=== PATIENT | male | born 1950 | race Caucasian/White ===

== ENCOUNTER 2022-08-28 14:10 | Outpatient (CLI) | payer MEDICARE, BC, SELFPAY | END 2022-08-28 14:11 | disposition home or self-care (01) | LOC: AMB 09-06 19:54 | PROVIDERS: PCP Internal Medicine; Visit Provider Family Medicine | DX: R55 Syncope and collapse (principal); R42 Dizziness and giddiness | CPT/HCPCS: A0425; A0427 ==

== ENCOUNTER 2022-08-28 14:38 | Observation (INO) | payer MEDICARE, BC, SELFPAY ==
[2022-08-28] VITALS (15 sets, daily range): BP systolic 113–153; BP diastolic 56–82; PULSE 70–78; RESP 10–22; TEMP 36–36.8; O2SAT 22–100; BMI 29.4; BMI 28.9
--- NOTE | 2022-08-28 14:55 | ED.GENADULT ---
HPI - General Adult General Time Seen by Provider: 14:55 Date Seen: 08/28/22 Chief complaint: Syncope/Fainted Stated complaint: Syncopal Time Seen by Provider: 08/28/22 14:54 Source: patient, RN notes reviewed and old records reviewed Mode of arrival: ambulatory Limitations: no limitations History of Present Illness HPI narrative: Devin is a very pleasant 71-year-old gentleman with prostate cancer status post external beam radiation with a Q 6 month Lupron and 4 times a day Abiraterone , type 2 diabetes, history of GI bleed who comes to the emergency room for evaluation regarding syncopal episode. Devin states that yesterday he had cold-like symptoms but was improved today. However he slept in and when he was in the shower did not feel very good. As he exited the shower he felt very lightheaded and felt like he was going to pass out. He was able to put some clothes on but when he tried to go back into the bathroom area he had to sit down and then found that he had passed out. His is present states that he was unresponsive for approximately 5 minutes. When he came to he was quite surprised that what had happened. He denied any chest pain or shortness of breath prodromal E. he does note that he has been very fatigued and occasionally short of breath since his radiation treatment was completed. He notes an ongoing cough for at least a few days. Occasionally productive. No fevers. He does agree that he has occasionally had some blood in his stool small amounts on and off for quite some time. He denies abdominal pain. In regards to possibility of dehydration he has not had any vomiting or diarrhea but notes decreased p.o. intake as he states otherwise he is up multiple times during the night for urination purposes. He has no pain with urination. Related Data Home Medications Medication Instructions Recorded Confirmed aspirin 81 mg tablet,delayed 81 mg PO QDAY 06/04/22 release (Adult Aspirin Regimen) nitroglycerin 0.4 mg sublingual 0.4 mg sublingual Q5M PRN 06/04/22 tablet (Nitrostat) abiraterone 250 mg tablet 1,000 mg PO QDAY 07/12/22 07/12/22 potassium chloride 20 mEq 20 meq PO BID 07/12/22 07/12/22 tablet,extended release(part/cryst) (Klor-Con M) Previous Rx's Medication Instructions Recorded amlodipine 2.5 mg tablet 2.5 mg PO QDAY Hypertension #90 07/12/22 tabs amlodipine 5 mg tablet 5 mg PO QDAY Hypertension #90 tabs 07/12/22 atorvastatin 40 mg tablet (Lipitor) 40 mg PO QPM Hyperlipidemia #90 07/12/22 tabs clindamycin phosphate 1 % lotion 1 applic topical QDAY Rash #60 mL 07/12/22 losartan 25 mg tablet 25 mg PO QDAY Hypertension #90 tabs 07/12/22 metformin 500 mg tablet,extended 2,000 mg PO BID Diabetes #90 tabs 07/12/22 release 24hr metoprolol succinate 100 mg 100 mg PO QDAY Hypertension #90 07/12/22 tablet,extended release 24 hr tabs (Toprol XL) clotrimazole-betamethasone 1 1 applic topical BID Rash #45 grams 07/30/22 %-0.05 % topical cream Allergies Allergy/AdvReac Type Severity Reaction Status Date / Time ibuprofen Allergy Mild Verified 07/02/22 13:02 NSAIDS (Non-Steroidal Allergy Mild Unknown Verified 07/02/22 13:02 Anti-Inflamma adhesive Allergy Unknown Verified 07/02/22 13:02 Review of Systems Status of ROS: Reports: 10 or more systems reviewed and unremarkable except as noted in History and below Const: Reports: fatigue; Denies: fever or chills Eyes: Denies: change in vision ENMT: Denies: throat pain, neck pain, difficulty swallowing or vertigo Cardio: Reports: lightheadedness and shortness of breath with exertion; Denies: chest pain, palpitations or swelling of feet/ankles Resp: Reports: shortness of breath and cough; Denies: wheezing GI: Denies: abdominal pain, nausea, vomiting, diarrhea or difficulty swallowing : Reports: urinary frequency; Denies: painful urination or blood in urine Musculo: Denies: neck pain Neuro: Reports: dizziness; Denies: headache, numbness in extremities or vertigo Endo: Reports: fatigue Allergy/Immuno: Denies: wheezing PFSH PFSH Medical History Adenomatous polyp of colon History of atrial fibrillation History of renal calculi Rash Surgical History History of appendectomy (04/25/07) History of cholecystectomy (04/25/07) Social History Smoking Status: Never smoker Do you use any of these nicotine containing products: None How often do you have a drink containing alcohol: never AUDIT-C Alcohol total score: 0 Exam Narrative: Exam Narrative: Devin is alert and oriented. He appears very pale to me. Is mentation is normal. Neck is supple without lymphadenopathy. Heart with regular rate and rhythm. Lungs are clear bilaterally. Abdomen is obese soft nontender. Lower extremities show 1+ peripheral edema. Moving all extremities. Const: Vital Signs, click to edit/add: Vital Signs - 24 hr 08/28/22 14:43 08/28/22 15:46 Temperature 96.8 F L Pulse Rate [Pulse Oximeter] 73 Respiratory Rate 18 Blood Pressure [Ri ght Upper Arm] 131/60 Pulse Oximetry 100 100 Oxygen Delivery Me thod Room Air Documenting provider has reviewed patient's vital signs: yes Course Course Hospital Course: At this time given TMs pallor I suspect that he is likely anemic secondary to blood loss. Will also check EKG, cardiac enzymes, CBC, electrolytes and comprehensive panel as well as urinalysis. Will add chest x-ray and triple swab for viruses. Will type and screen for 2 units. Reevaluation(s) Reevaluation #1: Devin has a positive guaiac of his stool. More melanotic then bright red noted. No pain with palpation in rectum. Vital Signs Vital signs: Initial Vital Signs Temperature 96.8 F L 08/28/22 14:43 Temperature Source Temporal Artery Scan 08/28/22 14:43 Pulse Rate 73 08/28/22 14:43 Respiratory Rate 18 08/28/22 14:43 Blood Pressure 131/60 08/28/22 14:43 Blood Pressure Mean 83 08/28/22 14:43 Blood Pressure Position Supine 08/28/22 14:43 Pulse Oximetry 100 08/28/22 14:43 Oxygen Delivery Method 08/28/22 14:43 Vital Signs Temperature 96.8 F L 08/28/22 14:43 Pulse Rate 73 08/28/22 14:43 Respiratory Rate 18 08/28/22 14:43 Blood Pressure 131/60 08/28/22 14:43 Pulse Oximetry 100 08/28/22 14:43 Oxygen Delivery Method 08/28/22 14:43 Temperature 96.8 F L 08/28/22 14:43 Pulse Rate 73 08/28/22 14:43 Respiratory Rate 18 08/28/22 14:43 Blood Pressure 131/60 08/28/22 14:43 Pulse Oximetry 100 08/28/22 15:46 Oxygen Delivery Method 08/28/22 14:43 Medical Decision Making MDM Narrative Medical decision making narrative: 1. Syncope-EKG does show changes versus 2016 with flipped T-waves noted in inferior lateral leads. However patient has no chest pain, has a negative cardiac enzyme with 2nd pending at 1930 hours. I believe that this likely stems from GI bleed with basal rate go reaction from hot water of the shower. No dizziness or near syncope in the ED. pressures and pulse have been normal. 2. GI bleed-patient has remote history of GI bleed 2012. According to documentation this may have been ulcers. He was transferred to [facility] at that time for definitive care. Here he has had no vomiting and has been occasionally passing some blood in his stool. He notes the last time this happened was Saturday which is 4 days ago. His stool is grossly positive for blood. He is not having diarrhea or passing large amounts. He takes 1 baby aspirin a day and no NSAIDs. Has no abdominal pain. No evidence of proctitis as digital exam of rectum was a without discomfort. Patient will stay here at the [facility]. We have consulted with Dr. Crook for possible EGD tomorrow. Patient has received 500 mL normal saline and type and screen was accomplished. At this time Dr. Tyson who is the accepting physician would like to hold off on abdominal CT. Initial hemoglobin 10.1 with repeat pending at 1930 hours. 3. Disposition-admit to the [facility] under the care of Dr. Tyson. Medical Records Medical records reviewed: Yes I reviewed the patient's medical records Lab Data Lab results reviewed: Yes I reviewed the patient's lab results Labs: Lab Results 08/28/22 08/28/22 08/28/22 Range/Units 15:08 15:08 15:11 WBC (4.50-11.00) K/uL RBC (4.30-5.90) m/uL Hgb (13.5-17.5) gm/dL Hct (37.0-53.0) % MCV (80-100) fL MCH (26-34) pg MCHC (32-36) gm/dL RDW Coeff of Arnold (11.5-15.5) % Plt Count (140-440) K/uL Neut % (Auto) (42.0-72.0) % Lymph % (Auto) (20-44) % [place] % (Auto) (0.0-11.0) % Eos % (Auto) (0.0-7.0) % Baso % (Auto) (0.0-3.0) % Neut # (Auto) (1.7-7.0) K/uL Lymph # (Auto) (0.90-2.90) K/uL [place] # (Auto) (0.00-0.90) K/UL Eos # (Auto) (0.00-0.50) K/uL Baso # (Auto) (0.00-0.30) K/uL Abs Immat Gran (auto) (0.00-0.30) K/uL Imm/Tot Granulo (auto) % INR (0.91-1.10) Sodium (135-149) mmol/L Potassium (3.6-5.1) mmol/L Chloride (96-114) mmol/L Carbon Dioxide (20-32) mmol/L BUN (7-30) mg/dL Creatinine (0.5-1.5) mg/dL Estimated Creat Clear Estimated GFR ml/min Glucose (60-115) mg/dL Calcium (8.4-10.6) mg/dL Total Bilirubin (0.1-1.5) mg/dL AST (12-35) U/L ALT (4-50) U/L Alkaline Phosphatase (40-150) U/L C-Reactive Protein (0.5-1.0) mg/dL Total Protein (6.0-8.3) g/dL Albumin (3.3-5.0) g/dL Urine Color Yellow (Yellow) Urine Appearance Clear (Clear) Urine pH 5.0 (5.0-8.5) Ur Specific Maybell 1.020 (1.000-1.030) Urine Protein Trace A (Negative) Urine Glucose (UA) Trace A (Negative) Urine Ketones Negative (Negative) Urine Blood Negative (Negative) Urine Nitrite Negative (Negative) Urine Bilirubin Negative (Negative) Urine Urobilinogen 0.2 (0.2-1.0) Ur Leukocyte Esterase Negative (Negative) Urine RBC 0-2 (0-2) Urine WBC 5-10 A (0-5) Ur Squamous Epith Cells None (None-Few) Urine Bacteria None (None) SARS-CoV-2 (PCR) Negative SARS-CoV-2 (Negative) Influenza Type A (PCR) Negative PCR FLU A (Negative) Influenza Type B (PCR) Negative PCR FLU B (Negative) RSV (PCR) Negative PCR RSV (Negative) POC Troponin I 0.00 L (0.01-0.04) ng/ml Blood Type Antibody Screen 08/28/22 08/28/22 08/28/22 Range/Units 15:33 15:33 15:33 WBC 4.39 L (4.50-11.00) K/uL RBC 3.25 L (4.30-5.90) m/uL Hgb 10.1 L (13.5-17.5) gm/dL Hct 29.7 L (37.0-53.0) % MCV 91 (80-100) fL MCH 31 (26-34) pg MCHC 34 (32-36) gm/dL RDW Coeff of Arnold 13.2 (11.5-15.5) % Plt Count 242 (140-440) K/uL Neut % (Auto) 75.4 H (42.0-72.0) % Lymph % (Auto) 9.8 L (20-44) % [place] % (Auto) 8.2 (0.0-11.0) % Eos % (Auto) 6.2 (0.0-7.0) % Baso % (Auto) 0.2 (0.0-3.0) % Neut # (Auto) 3.30 (1.7-7.0) K/uL Lymph # (Auto) 0.40 L (0.90-2.90) K/uL [place] # (Auto) 0.40 (0.00-0.90) K/UL Eos # (Auto) 0.30 (0.00-0.50) K/uL Baso # (Auto) 0.00 (0.00-0.30) K/uL Abs Immat Gran (auto) 0.00 (0.00-0.30) K/uL Imm/Tot Granulo (auto) 0.2 % INR 0.88 L (0.91-1.10) Sodium 141 (135-149) mmol/L Potassium 3.5 L (3.6-5.1) mmol/L Chloride 107 (96-114) mmol/L Carbon Dioxide 26 (20-32) mmol/L BUN 14 (7-30) mg/dL Creatinine 1.0 (0.5-1.5) mg/dL Estimated Creat Clear 70.97 Estimated GFR 81 ml/min Glucose 166 H (60-115) mg/dL Calcium 9.1 (8.4-10.6) mg/dL Total Bilirubin 0.6 (0.1-1.5) mg/dL AST 17 (12-35) U/L ALT 13 (4-50) U/L Alkaline Phosphatase 127 (40-150) U/L C-Reactive Protein 1.1 H (0.5-1.0) mg/dL Total Protein 7.0 (6.0-8.3) g/dL Albumin 4.3 (3.3-5.0) g/dL Urine Color (Yellow) Urine Appearance (Clear) Urine pH (5.0-8.5) Ur Specific Maybell (1.000-1.030) Urine Protein (Negative) Urine Glucose (UA) (Negative) Urine Ketones (Negative) Urine Blood (Negative) Urine Nitrite (Negative) Urine Bilirubin (Negative) Urine Urobilinogen (0.2-1.0) Ur Leukocyte Esterase (Negative) Urine RBC (0-2) Urine WBC (0-5) Ur Squamous Epith Cells (None-Few) Urine Bacteria (None) SARS-CoV-2 (PCR) (Negative) Influenza Type A (PCR) (Negative) Influenza Type B (PCR) (Negative) RSV (PCR) (Negative) POC Troponin I (0.01-0.04) ng/ml Blood Type Antibody Screen 08/28/22 Range/Units 15:33 WBC (4.50-11.00) K/uL RBC (4.30-5.90) m/uL Hgb (13.5-17.5) gm/dL Hct (37.0-53.0) % MCV (80-100) fL MCH (26-34) pg MCHC (32-36) gm/dL RDW Coeff of Arnold (11.5-15.5) % Plt Count (140-440) K/uL Neut % (Auto) (42.0-72.0) % Lymph % (Auto) (20-44) % [place] % (Auto) (0.0-11.0) % Eos % (Auto) (0.0-7.0) % Baso % (Auto) (0.0-3.0) % Neut # (Auto) (1.7-7.0) K/uL Lymph # (Auto) (0.90-2.90) K/uL [place] # (Auto) (0.00-0.90) K/UL Eos # (Auto) (0.00-0.50) K/uL Baso # (Auto) (0.00-0.30) K/uL Abs Immat Gran (auto) (0.00-0.30) K/uL Imm/Tot Granulo (auto) % INR (0.91-1.10) Sodium (135-149) mmol/L Potassium (3.6-5.1) mmol/L Chloride (96-114) mmol/L Carbon Dioxide (20-32) mmol/L BUN (7-30) mg/dL Creatinine (0.5-1.5) mg/dL Estimated Creat Clear Estimated GFR ml/min Glucose (60-115) mg/dL Calcium (8.4-10.6) mg/dL Total Bilirubin (0.1-1.5) mg/dL AST (12-35) U/L ALT (4-50) U/L Alkaline Phosphatase (40-150) U/L C-Reactive Protein (0.5-1.0) mg/dL Total Protein (6.0-8.3) g/dL Albumin (3.3-5.0) g/dL Urine Color (Yellow) Urine Appearance (Clear) Urine pH (5.0-8.5) Ur Specific [place]bell (1.000-1.030) Urine Protein (Negative) Urine Glucose (UA) (Negative) Urine Ketones (Negative) Urine Blood (Negative) Urine Nitrite (Negative) Urine Bilirubin (Negative) Urine Urobilinogen (0.2-1.0) Ur Leukocyte Esterase (Negative) Urine RBC (0-2) Urine WBC (0-5) Ur Squamous Epith Cells (None-Few) Urine Bacteria (None) SARS-CoV-2 (PCR) (Negative) Influenza Type A (PCR) (Negative) Influenza Type B (PCR) (Negative) RSV (PCR) (Negative) POC Troponin I (0.01-0.04) ng/ml Blood Type B Negative Antibody Screen NEGATIVE Imaging Data Chest x-ray: Attestation: I have reviewed the pertinent imaging results. My impression: No obvious infiltrates. Radiologist's impression: HEART AND MEDIASTINUM: The heart size is normal. The mediastinal contour appears normal for patient age. LUNGS AND PLEURAL SPACES: The lungs appear normal.The pleural spaces are unremarkable. OSSEOUS STRUCTURES: Age-appropriate appearance. No acute focal finding. IMPRESSION: No evidence of active pulmonary disease. ECG Data Attestation: I personally reviewed and interpreted this ECG as follows: Interpretation: EKG by my read shows sinus rhythm at a rate of 81. T-wave inversion noted in the inferior lateral leads. Compared with previous there is a change in T-wave presentations. Discharge Plan Discharge Clinical Impression: GI bleed, Syncope Patient Disposition: Admitted As Inpatient Condition: Improved
--- NOTE | 2022-08-28 15:08 | CRLHL7_ITS ---
For Patients: As a result of the Cures Act, medical imaging exams and procedure reports are released immediately into your electronic medical record. You may view this report before your referring provider. If you have questions, please contact your health care provider. INDICATION: URI. Syncope. COMPARISON: October 24, 2015 TECHNIQUE: Portable AP single view study FINDINGS: TUBES AND LINES: None. HEART AND MEDIASTINUM: The heart size is normal. The mediastinal contour appears normal for patient age. LUNGS AND PLEURAL SPACES: The lungs appear normal.The pleural spaces are unremarkable. OSSEOUS STRUCTURES: Age-appropriate appearance. No acute focal finding. IMPRESSION: No evidence of active pulmonary disease. Dictated by Mitchel Saldana MD @ 08/28/2022 3:38:10 PM (Electronically Signed)
[2022-08-28] MEDS: PANTOPRAZOLE SODIUM 40 MG INJ 80 MG IVP (15:52)
[2022-08-28] MEDS: 0.9 % SODIUM CHLORIDE 500 ML 500 ML IV (15:52)
[2022-08-28 15:54] LABS: Basophils Percent Auto 0.2 % (0.0-3.0); Eosinophils Percent Auto 6.2 % (0.0-7.0); Hematocrit 29.7 % (37.0-53.0); Hemoglobin* 10.1 gm/dL (13.5-17.5); Immature Granulocytes Pct Auto 0.2 %; Lymphocytes Percent Auto 9.8 % (20-44); Mean Corpuscular HGB Conc 34 gm/dL (32-36); Mean Corpuscular Hemoglobin 31 pg (26-34); Mean Corpuscular Volume 91 fL (80-100); Monocytes Percent Auto 8.2 % (0.0-11.0); Neutrophils Percent Auto 75.4 % (42.0-72.0); Platelet Count* 242 K/uL (140-440); RDW Coefficient of Variation % 13.2 % (11.5-15.5); Red Blood Count 3.25 m/uL (4.30-5.90); White Blood Count* 4.39 K/uL (4.50-11.00)
[2022-08-28 16:06] LABS: Slide Review Reflex No
[2022-08-28 16:12] LABS: Albumin* 4.3 g/dL (3.3-5.0); Chloride* 107 mmol/L (96-114); Sodium* 141 mmol/L (135-149)
[2022-08-28 16:13] LABS: Potassium* 3.5 mmol/L (3.6-5.1)
[2022-08-28 16:15] LABS: Est. Creatinine Clearance* 70.97; Estimated Glomerular Filt Rate 81 ml/min; INR 0.88 (0.91-1.10); Prothrombin Time 12.5 Seconds
[2022-08-28 16:16] LABS: Alanine Aminotransferase* 13 U/L (4-50); Alkaline Phosphatase* 127 U/L (40-150); Aspartate Amino Transferase* 17 U/L (12-35); Bilirubin Total* 0.6 mg/dL (0.1-1.5); Blood Urea Nitrogen* 14 mg/dL (7-30); Calcium* 9.1 mg/dL (8.4-10.6); Carbon Dioxide* 26 mmol/L (20-32); Glucose* 166 mg/dL (60-115)
[2022-08-28 16:19] LABS: C Reactive Protein* 1.1 mg/dL (0.5-1.0)
[2022-08-28 16:25] LABS: Appearance Urine Clear (Clear); Bilirubin Urine Negative (Negative); Blood Urine Negative (Negative); Color Urine Yellow (Yellow); Glucose Urine Trace (Negative); Ketones Urine Negative (Negative); Leukocyte Esterase Urine Negative (Negative); Nitrite Urine Negative (Negative); Protein Urine Trace (Negative); Urobilinogen Urine 0.2 (0.2-1.0)
[2022-08-28 16:31] LABS: PCR FLU A Negative PCR FLU A (Negative); PCR FLU B Negative PCR FLU B (Negative); PCR RSV Negative PCR RSV (Negative)
[2022-08-28 16:37] LABS: SARS PCR* Negative SARS-CoV-2 (Negative)
[2022-08-28 17:04] LABS: RBC Urine 0-2 (0-2)
--- NOTE | 2022-08-28 17:52 | ED.NURSE ---
Hemoccult is positive per Dr. Tompkins performing the test.
--- NOTE | 2022-08-28 19:34 | P.IMHP_ITS ---
Hospitalist- H&P: HPI History of Present Illness Date Seen: 08/28/22 Chief complaint: Syncopal Narrative: Bora Rider is a 71 year old male admitted through the emergency department after a syncopal episode at home. Patient reports that he had just gotten out of the shower. He sat down in a chair. He started to get up to go to the bathroom when he felt very lightheaded and presyncopal. The next thing he knew his was standing over him trying to wake him up. His noted that she saw him passed out in the chair and very pale appearing. She thinks he was out for about 5 minutes. Prior to this event and subsequently he has been feeling okay. He has had a recent respiratory illness with some cough and congestion for about 2 days. No fever shortness of breath. He has also noted that for the last couple weeks that he has been seeing dark brown stools with some pink tinge to the toilet water after a bowel movement. Stools are formed and not themselves bloody or black. In about 2015 he had hospitalization for syncope and GI bleed. He was diagnosed with an upper GI ulcer at that time. He has been off of ibuprofen since that time. He does continue taken aspirin 81 mg daily for his coronary disease however. No anticoagulants. He has multiple other concerns about his health which she feels has declined substantially in the last 6 months. He has prostate cancer and finished external beam radiation therapy in January 2022. Since that time he reports he has had profound fatigue and malaise. He has had a poor appetite he has had possibly 40 lb of weight loss. He reports exertional dyspnea deconditioning and weakness. He has urinary frequency. He has informed his [facility] oncology team of these symptoms they are attributing it to his radiation but possibly also his androgen deprivation therapy with Lupron/abiraterone. Review of Systems Narrative: Review of systems is negative except as noted above with multiple constitutional symptoms. [facility] Medical History (Updated 08/28/22 @ 19:56 by Kwadwo Tyson MD) Adenomatous polyp of colon Aortic regurgitation CAD (coronary artery disease) Essential hypertension Fatigue Hearing loss d/t noise History of atrial fibrillation History of renal calculi Hyperlipemia IBS (irritable bowel syndrome) Obesity JOE (obstructive sleep apnea) Physical deconditioning Prostate cancer Rash Unintentional weight loss Urinary frequency Surgical History History of appendectomy (04/25/07) History of cholecystectomy (04/25/07) Family History (Updated 08/28/22 @ 19:51 by Kwadwo Tyson MD) Brother Prostate cancer Alcohol dependence Father Prostate cancer Social History (Updated 08/28/22 @ 19:52 by Kwadwo Tyson MD) Narrative: He is here with his . is healthcare power of criminal attorney. Code status is full. 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 He does not smoke. Does not drink alcohol. Smoking Status: Never smoker Do you use any of these nicotine containing products: None How often do you have a drink containing alcohol: never AUDIT-C Alcohol total score: 0 Meds Home Medications and Allergies Home Medications Medication Instructions Recorded Confirmed Type aspirin 81 mg tablet,delayed 81 mg PO QDAY 06/04/22 08/28/22 History release (Adult Aspirin Regimen) nitroglycerin 0.4 mg sublingual 0.4 mg sublingual Q5M PRN 06/04/22 08/28/22 History tablet (Nitrostat) abiraterone 250 mg tablet 1,000 mg PO QDAY 07/12/22 08/28/22 History potassium chloride 20 mEq 20 meq PO BID 07/12/22 08/28/22 History tablet,extended release(part/cryst) (Klor-Con M) Allergies Allergy/AdvReac Type Severity Reaction Status Date / Time ibuprofen Allergy Mild Verified 07/02/22 13:02 NSAIDS (Non-Steroidal Allergy Mild Unknown Verified 07/02/22 13:02 Anti-Inflamma adhesive Allergy Unknown Verified 07/02/22 13:02 Exam Narrative: Exam Narrative: He is alert and appears in no distress. He gives his own history. Head is normal. Eyes normal. Extraocular movements are full. Visual hu intact. Oropharynx with small airway. Otherwise normal. Neck is supple without mass or adenopathy. Respirations are clear to auscultation. No wheezing rales or rhonchi. Cardiovascular: S1, S2, regular rate and rhythm. No murmur gallop or rub. Abdomen: Bowel sounds active. Abdomen is soft without tenderness or mass. Extremities with trace edema. Intact pedal pulses. Per emergency room physician guaiac-positive stool Const: Vital Signs, click to edit/add: Vital Signs - 24 hr 08/28/22 14:43 08/28/22 15:46 Temperature 96.8 F L Pulse Rate [Pulse Oximeter] 73 Respiratory Rate 18 Blood Pressure [Ri ght Upper Arm] 131/60 Pulse Oximetry 100 100 Oxygen Delivery Me thod Room Air Documenting provider has reviewed patient's vital signs: yes Hospitalist - H&P: Result Labs Labs: Short CBC 08/28/22 Range/Units 15:33 WBC 4.39 L (4.50-11.00) K/uL Hgb 10.1 L (13.5-17.5) gm/dL Hct 29.7 L (37.0-53.0) % Plt Count 242 (140-440) K/uL BMP 08/28/22 15:33 Sodium 141 Potassium 3.5 L Chloride 107 Carbon Dioxide 26 BUN 14 Creatinine 1.0 Glucose 166 H Calcium 9.1 Liver Function 08/28/22 Range/Units 15:33 Total Bilirubin 0.6 (0.1-1.5) mg/dL AST 17 (12-35) U/L ALT 13 (4-50) U/L Alkaline Phosphatase 127 (40-150) U/L Albumin 4.3 (3.3-5.0) g/dL Urine 08/28/22 Range/Units 15:08 Urine Color Yellow (Yellow) Urine Appearance Clear (Clear) Urine pH 5.0 (5.0-8.5) Ur Specific [place] 1.020 (1.000-1.030) Urine Protein Trace A (Negative) Urine Glucose (UA) Trace A (Negative) Assessment and Plan Assessment and plan (1) GI bleed: Problem comment: Serial hemoglobins, temporarily stop aspirin, ppi, EGD tomorrow Status: Acute (2) Syncope: Problem comment: Clearly had presyncopal prodrome. I favor neurocardiogenic syncope. GI bleed contributing? Check echo Status: Acute (3) Prostate cancer: Status: Acute (4) Type 2 diabetes mellitus: Problem comment: Well controlled but metformin dose appears to be too high at 4000 mg per day. Hemoglobin A1c 06/25/2022 was 5.8 Status: Acute (5) Essential hypertension: Problem comment: Blood pressure appears appropriately controlled but will check orthostatic blood pressures. Temporarily hold amlodipine and losartan. Status: Acute (6) JOE (obstructive sleep apnea): Problem comment: On CPAP Status: Acute (7) CAD (coronary artery disease): Problem comment: s/p cardiac stenting x3 (prox and mid LAD, distal circumflex) at [facility] 11/01 for unstable angina. Due to GI bleeding temporarily stop aspirin should have it resumed if low risk bleeding or bleeding stops. 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 Status: Acute (11) Physical deconditioning: Problem comment: Marked decline in ability to perform usual activity. Multifactorial including cancer treatments. Status: Acute (12) Aortic regurgitation: Problem comment: 11/01, mild to moderate per cardiology notes, Dr. Qiu ([facility]) suzy mmended recheck q2Y or so. Recheck echocardiogram due to progressive exertional dyspnea and syncope Status: Acute Plan Admit for evaluation and monitoring of gastrointestinal bleeding, syncope with vital sign monitoring, serial hemoglobins, echocardiogram. Will have therapists evaluate patient's report of marked physical decline looking for recommendations for outpatient management. Total time spent is 70 minutes, 40 minutes discussing with patient, and other providers ongoing evaluation management of GI bleeding and syncope.
[2022-08-28 19:38] LABS: Hemoglobin* 9.3 gm/dL (13.5-17.5)
--- NOTE | 2022-08-28 19:47 | ED.NURSE ---
given report to Lexi Martinez who will resume care of this patient in M/S via cart and with accompany to room 258. tele box on.
[2022-08-28] MEDS: POTASSIUM BICARB 25 MEQ EFFERVESCENT TAB PO (20:42)
[2022-08-28] MEDS: LACTATED RINGERS 1000 ML 1,000 ML 125 ML IV (20:43)
[2022-08-28] MEDS: OMEPRAZOLE 20 MG CAPSULE DR PO (21:12)
[2022-08-28] MEDS: METFORMIN 1,000 MG TABLET 1000 MG PO (21:12)
[2022-08-28] MEDS: POTASSIUM CITRATE 10 MEQ TABLET.ER 20 MEQ PO (22:00)
--- NOTE | 2022-08-28 22:24 | PC.NURSE ---
Shift Note: Pt arrived with [facility]. Able to walk with SBA, steady on his feet and denies dizziness or lightheadedness. Denies CP or pressure, tele= 1st degree HB. VS WNL and LS COA. Denies pain. Tolerating clear liquids without difficulty, he will be NPO at 0000.
[2022-08-28 23:03] LABS: Hemoglobin* 8.9 gm/dL (13.5-17.5)
[2022-08-29] VITALS (9 sets, daily range): BP systolic 120–168; BP diastolic 58–77; PULSE 71–97; RESP 18; TEMP 36.6–36.7; O2SAT 94–98; BMI 28.9
--- NOTE | 2022-08-29 05:00 | PC.NURSE ---
[id number] Pt independent in room, denies any lightheaded or dizziness, denies chest pain or headache.
[2022-08-29] MEDS: LACTATED RINGERS 1000 ML 1,000 ML 125 ML IV ×2 (05:27→12:53)
[2022-08-29 07:49] LABS: Basophils Percent Auto 0.5 % (0.0-3.0); Eosinophils Percent Auto 6.3 % (0.0-7.0); Hematocrit 27.9 % (37.0-53.0); Hemoglobin* 9.5 gm/dL (13.5-17.5); Lymphocytes Percent Auto 12.8 % (20-44); Mean Corpuscular HGB Conc 34 gm/dL (32-36); Mean Corpuscular Hemoglobin 31 pg (26-34); Mean Corpuscular Volume 91 fL (80-100); Neutrophils Percent Auto 71.4 % (42.0-72.0); Platelet Count* 225 K/uL (140-440); RDW Coefficient of Variation % 13.2 % (11.5-15.5); Red Blood Count 3.07 m/uL (4.30-5.90); White Blood Count* 3.67 K/uL (4.50-11.00)
[2022-08-29 07:50] LABS: Slide Review Reflex No
[2022-08-29 08:17] LABS: Chloride* 105 mmol/L (96-114); Potassium* 3.4 mmol/L (3.6-5.1); Sodium* 142 mmol/L (135-149)
[2022-08-29 08:20] LABS: Blood Urea Nitrogen* 10 mg/dL (7-30); Carbon Dioxide* 30 mmol/L (20-32); Creatinine* 0.9 mg/dL (0.5-1.5); Est. Creatinine Clearance* 73.21; Estimated Glomerular Filt Rate 92 ml/min; Glucose* 107 mg/dL (60-115)
[2022-08-29 08:21] LABS: Calcium* 8.9 mg/dL (8.4-10.6)
--- NOTE | 2022-08-29 12:43 | W.ANESCHARGE ---
Anesthesia Charges Start Date/Time Anesthesia Start Date: 08/29/22 Anesthesia Start Time: 12:05 Stop Date/Time Anesthesia Stop Date: 08/29/22 Anesthesia Stop Time: 12:35 Summary Emergency: No Extremes of Age: Over 71-CPT 07426
--- NOTE | 2022-08-29 12:45 | PM.GSCN ---
History of Present Illness Consult details Date Seen: 08/29/22 Consult date: 08/29/22 Narrative: The patient is a 71-year-old male who presented to the emergency department yesterday after syncope. He had a shower and then sat down in a chair. When he got up he fell. This was witnessed by his . He had a loss of consciousness. When he was seen in the ED he was noted to be anemic with a hemoglobin of 10. Vital signs were stable. He states that for approximately 1 month to 6 weeks he has had dark stools. He has not noted clots but states that there had been a pink tinge in the toilet. He takes 81 mg of aspirin. He has completed semi recently radiation therapy for prostate cancer. Denies any abdominal pain or rectal pain. He states that he has bowel movements every 3 days. He states that he does not take a fiber supplement however he does eat fruit. he states that his bowel movements are not loose nor are they particularly firm.He does not take an acid blocking medication. He does have a history of GI bleed in the past. In [address] [facility] where he underwent upper endoscopy and colonoscopy. The EGD was normal and he was noted to have diverticular bleeding. In 2014 he was admitted for bright red blood per rectum. This was managed conservatively. In 2018 he underwent a Screening colonoscopy which showed severe diverticulosis as well as a small polyp in the sigmoid colon. He has felt more fatigued since his radiation treatment and has also reportedly lost weight. Review of Systems Status of ROS: Reports: 10 or more systems reviewed and unremarkable except as noted in History and below [employer] [facility] Medical History (Updated 08/28/22 @ 19:56 by Kwadwo Tyson MD) Adenomatous polyp of colon Aortic regurgitation CAD (coronary artery disease) Essential hypertension Fatigue Hearing loss d/t noise History of atrial fibrillation History of renal calculi Hyperlipemia IBS (irritable bowel syndrome) Obesity JOE (obstructive sleep apnea) Physical deconditioning Prostate cancer Rash Unintentional weight loss Urinary frequency Surgical History History of appendectomy (04/25/07) History of cholecystectomy (04/25/07) Family History (Updated 08/28/22 @ 19:51 by Kwadwo Tyson MD) Brother Prostate cancer Alcohol dependence Father Prostate cancer Social History (Updated 08/28/22 @ 19:52 by Kwadwo Tyson MD) Narrative: He is here with his . is healthcare power of tax attorney. Code status is full. 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 He does not smoke. Does not drink alcohol. Highest level of school completed/degree received: some college, no degree Smoking Status: Former smoker How often do you have a drink containing alcohol: never AUDIT-C Alcohol total score: 0 Caffeine: Yes (1 can [employer] daily) service: No Meds Home Medications and Allergies Home Medications Medication Instructions Recorded Confirmed Type aspirin 81 mg tablet,delayed 81 mg PO DAILY 06/04/22 08/29/22 History release (Adult Aspirin Regimen) nitroglycerin 0.4 mg sublingual 0.4 mg sublingual Q5M PRN 06/04/22 08/28/22 History tablet (Nitrostat) abiraterone 250 mg tablet 1,000 mg PO DAILY 07/12/22 08/29/22 History potassium chloride 20 mEq 20 meq PO BID 07/12/22 08/28/22 History tablet,extended release(part/cryst) (Klor-Con M) amlodipine 2.5 mg tablet 2.5 mg PO DAILY Hypertension 08/29/22 08/29/22 History amlodipine 5 mg tablet 5 mg PO DAILY Hypertension 08/29/22 08/29/22 History atorvastatin 40 mg tablet (Lipitor) 40 mg PO HS Hyperlipidemia 08/29/22 08/29/22 History clindamycin phosphate 1 % lotion 1 applic topical DAILY Rash 08/29/22 08/29/22 History losartan 25 mg tablet 25 mg PO DAILY Hypertension 08/29/22 08/29/22 History metoprolol succinate 100 mg 100 mg PO DAILY Hypertension 08/29/22 08/29/22 History tablet,extended release 24 hr (Toprol XL) Allergies Allergy/AdvReac Type Severity Reaction Status Date / Time ibuprofen Allergy Mild Verified 07/02/22 13:02 NSAIDS (Non-Steroidal Allergy Mild Unknown Verified 07/02/22 13:02 Anti-Inflamma adhesive Allergy Unknown Verified 07/02/22 13:02 Exam Narrative: Exam Narrative: General appearance: Alert, cooperative, and in no distress Eyes: PERRLA, eye lids clear, and sclera white HENT Head: Normocephalic Ears: External ears normal Throat: Mallampati 2 Pulmonary: Clear to auscultation bilaterally Cardiovascular Heart: Regular rate Extremities: warm and well perfused Gastrointestinal Abdominal: Soft, nontender, nondistended Musculoskeletal: Extremities: Upper: Both upper extremities have normal joint range of motion and intact strength. Lower: Both lower extremities have normal joint range of motion and intact strength. Skin: Normal skin color, texture, and turgor. No rashes or lesions. Neurologic: No focal deficits Psychiatric: Alert, oriented, cooperative, normal affect. Const: Vital Signs, click to edit/add: Vital Signs - 24 hr 08/28/22 14:43 08/28/22 15:46 08/28/22 20:12 Temperature 96.8 F L 98.2 F Pulse Rate Pulse Rate [Left A pical] 74 Pulse Rate [Pulse Oximeter] 73 Pulse Rate [orthos tatic lying Pulse Oximeter] Pulse Rate [orthos tatic sitting Puls e Oximeter] Pulse Rate [orthos tatic standing Pul se Oximeter] Respiratory Rate 18 20 Blood Pressure [Le ft Arm] 153/82 H Blood Pressure [Ri ght Upper Arm] 131/60 Blood Pressure [or thostatic lying] Blood Pressure [or thostatic sitting] Blood Pressure [or thostatic standing ] Pulse Oximetry 100 100 99 Oxygen Delivery Me thod Room Air Room Air 08/28/22 19:09 08/28/22 15:35 08/28/22 16:00 Temperature Pulse Rate Pulse Rate [Left A pical] Pulse Rate [Pulse Oximeter] 74 74 Pulse Rate [orthos tatic lying Pulse Oximeter] Pulse Rate [orthos tatic sitting Puls e Oximeter] Pulse Rate [orthos tatic standing Pul se Oximeter] Respiratory Rate 16 17 Blood Pressure [Le ft Arm] Blood Pressure [Ri ght Upper Arm] 132/64 137/70 Blood Pressure [or thostatic lying] Blood Pressure [or thostatic sitting] Blood Pressure [or thostatic standing ] Pulse Oximetry 99 100 93 Oxygen Delivery Me thod Room Air Room Air 08/28/22 16:30 08/28/22 17:00 08/28/22 17:30 Temperature Pulse Rate Pulse Rate [Left A pical] Pulse Rate [Pulse Oximeter] 72 71 70 Pulse Rate [orthos tatic lying Pulse Oximeter] Pulse Rate [orthos tatic sitting Puls e Oximeter] Pulse Rate [orthos tatic standing Pul se Oximeter] Respiratory Rate 18 12 15 Blood Pressure [Le ft Arm] Blood Pressure [Ri ght Upper Arm] 113/56 L 129/59 L 142/72 H Blood Pressure [or thostatic lying] Blood Pressure [or thostatic sitting] Blood Pressure [or thostatic standing ] Pulse Oximetry 99 98 98 Oxygen Delivery Me thod Room Air Room Air 08/28/22 18:00 08/28/22 18:30 08/28/22 19:00 Temperature Pulse Rate Pulse Rate [Left A pical] Pulse Rate [Pulse Oximeter] 77 75 78 Pulse Rate [orthos tatic lying Pulse Oximeter] Pulse Rate [orthos tatic sitting Puls e Oximeter] Pulse Rate [orthos tatic standing Pul se Oximeter] Respiratory Rate 20 10 L 13 Blood Pressure [Le ft Arm] Blood Pressure [Ri ght Upper Arm] 115/59 L 135/64 129/65 Blood Pressure [or thostatic lying] Blood Pressure [or thostatic sitting] Blood Pressure [or thostatic standing ] Pulse Oximetry 98 99 98 Oxygen Delivery Me thod Room Air Room Air Room Air 08/28/22 20:19 08/28/22 20:12 08/28/22 19:08 Temperature Pulse Rate 73 Pulse Rate [Left A pical] Pulse Rate [Pulse Oximeter] 72 Pulse Rate [orthos tatic lying Pulse Oximeter] Pulse Rate [orthos tatic sitting Puls e Oximeter] Pulse Rate [orthos tatic standing Pul se Oximeter] Respiratory Rate 22 20 Blood Pressure [Le ft Arm] Blood Pressure [Ri ght Upper Arm] 129/63 Blood Pressure [or thostatic lying] Blood Pressure [or thostatic sitting] Blood Pressure [or thostatic standing ] Pulse Oximetry 22 L 99 Oxygen Delivery Me thod Room Air Room Air 08/28/22 23:00 08/28/22 23:00 08/29/22 01:01 Temperature 98.2 F Pulse Rate 71 Pulse Rate [Left A pical] 75 Pulse Rate [Pulse Oximeter] Pulse Rate [orthos tatic lying Pulse Oximeter] Pulse Rate [orthos tatic sitting Puls e Oximeter] Pulse Rate [orthos tatic standing Pul se Oximeter] Respiratory Rate 20 20 Blood Pressure [Le ft Arm] 132/57 L Blood Pressure [Ri ght Upper Arm] Blood Pressure [or thostatic lying] Blood Pressure [or thostatic sitting] Blood Pressure [or thostatic standing ] Pulse Oximetry 98 98 Oxygen Delivery Pa thod Room Air Room Air 08/29/22 03:00 08/29/22 05:32 08/29/22 07:00 Temperature Pulse Rate Pulse Rate [Left A pical] Pulse Rate [Pulse Oximeter] Pulse Rate [orthos tatic lying Pulse Oximeter] 76 Pulse Rate [orthos tatic sitting Puls e Oximeter] 96 Pulse Rate [orthos tatic standing Pul se Oximeter] 72 Respiratory Rate 18 18 Blood Pressure [Le ft Arm] Blood Pressure [Ri ght Upper Arm] Blood Pressure [or thostatic lying] 156/76 H Blood Pressure [or thostatic sitting] 145/72 H Blood Pressure [or thostatic standing ] 150/72 H Pulse Oximetry 98 [facility] 08/[facility]/22 07:00 08/29/22 07:00 08/29/22 07:00 Temperature 98.1 F Pulse Rate 75 Pulse Rate [Left A pical] 75 75 Pulse Rate [Pulse Oximeter] Pulse Rate [orthos tatic lying Pulse Oximeter] Pulse Rate [orthos tatic sitting Puls e Oximeter] Pulse Rate [orthos tatic standing Pul se Oximeter] Respiratory Rate 18 18 Blood Pressure [Le ft Arm] 128/58 L Blood Pressure [Ri ght Upper Arm] Blood Pressure [or thostatic lying] Blood Pressure [or thostatic sitting] Blood Pressure [or thostatic standing ] Pulse Oximetry 96 Oxygen Delivery Pa thod Room Air Results Labs Labs: Abnormal lab results 08/28/22 08/28/22 08/28/22 Range/Units 15:08 15:11 15:33 WBC 4.39 L (4.50-11.00) K/uL RBC 3.25 L (4.30-5.90) m/uL Hgb 10.1 L (13.5-17.5) gm/dL Hct 29.7 L (37.0-53.0) % Neut % (Auto) 75.4 H (42.0-72.0) % Lymph % (Auto) 9.8 L (20-44) % Lymph # (Auto) 0.40 L (0.90-2.90) K/uL INR (0.91-1.10) Potassium (3.6-5.1) mmol/L Glucose (60-115) mg/dL C-Reactive Protein (0.5-1.0) mg/dL Urine Protein Trace A (Negative) Urine Glucose (UA) Trace A (Negative) Urine WBC 5-10 A (0-5) POC Troponin I 0.00 L (0.01-0.04) ng/ml 08/28/22 08/28/22 08/28/22 Range/Units 15:33 15:33 19:30 WBC (4.50-11.00) K/uL RBC (4.30-5.90) m/uL Hgb 9.3 L (13.5-17.5) gm/dL Hct (37.0-53.0) % Neut % (Auto) (42.0-72.0) % Lymph % (Auto) (20-44) % Lymph # (Auto) (0.90-2.90) K/uL INR 0.88 L (0.91-1.10) Potassium 3.5 L (3.6-5.1) mmol/L Glucose 166 H (60-115) mg/dL C-Reactive Protein 1.1 H (0.5-1.0) mg/dL Urine Protein (Negative) Urine Glucose (UA) (Negative) Urine WBC (0-5) POC Troponin I (0.01-0.04) ng/ml 08/28/22 08/28/22 08/29/22 Range/Units 19:30 22:48 07:34 WBC 3.67 L (4.50-11.00) K/uL RBC 3.07 L (4.30-5.90) m/uL Hgb 8.9 L 9.5 L (13.5-17.5) gm/dL Hct 27.9 L (37.0-53.0) % Neut % (Auto) (42.0-72.0) % Lymph % (Auto) 12.8 L (20-44) % Lymph # (Auto) 0.50 L (0.90-2.90) K/uL INR (0.91-1.10) Potassium (3.6-5.1) mmol/L Glucose (60-115) mg/dL C-Reactive Protein (0.5-1.0) mg/dL Urine Protein (Negative) Urine Glucose (UA) (Negative) Urine WBC (0-5) POC Troponin I 0.00 L (0.01-0.04) ng/ml 08/29/22 Range/Units 07:34 WBC (4.50-11.00) K/uL RBC (4.30-5.90) m/uL Hgb (13.5-17.5) gm/dL Hct (37.0-53.0) % Neut % (Auto) (42.0-72.0) % Lymph % (Auto) (20-44) % Lymph # (Auto) (0.90-2.90) K/uL INR (0.91-1.10) Potassium 3.4 L (3.6-5.1) mmol/L Glucose (60-115) mg/dL C-Reactive Protein (0.5-1.0) mg/dL Urine Protein (Negative) Urine Glucose (UA) (Negative) Urine WBC (0-5) POC Troponin I (0.01-0.04) ng/ml Diabetes panel 08/28/22 08/29/22 Range/Units 15:33 07:34 Sodium 141 142 (135-149) mmol/L Potassium 3.5 L 3.4 L (3.6-5.1) mmol/L Chloride 107 105 (96-114) mmol/L Carbon Dioxide 26 30 (20-32) mmol/L BUN 14 10 (7-30) mg/dL Creatinine 1.0 0.9 (0.5-1.5) mg/dL Glucose 166 H 107 (60-115) mg/dL Calcium 9.1 8.9 (8.4-10.6) mg/dL AST 17 (12-35) U/L ALT 13 (4-50) U/L Alkaline Phosphatase 127 (40-150) U/L Total Protein 7.0 (6.0-8.3) g/dL Albumin 4.3 (3.3-5.0) g/dL Calcium panel 08/28/22 08/29/22 Range/Units 15:33 07:34 Calcium 9.1 8.9 (8.4-10.6) mg/dL Albumin 4.3 (3.3-5.0) g/dL Pituitary panel 08/28/22 08/29/22 Range/Units 15:33 07:34 Sodium 141 142 (135-149) mmol/L Potassium 3.5 L 3.4 L (3.6-5.1) mmol/L Chloride 107 105 (96-114) mmol/L Carbon Dioxide 26 30 (20-32) mmol/L BUN 14 10 (7-30) mg/dL Creatinine 1.0 0.9 (0.5-1.5) mg/dL Glucose 166 H 107 (60-115) mg/dL Calcium 9.1 8.9 (8.4-10.6) mg/dL Adrenal panel 08/28/22 08/29/22 Range/Units 15:33 07:34 Sodium 141 142 (135-149) mmol/L Potassium 3.5 L 3.4 L (3.6-5.1) mmol/L Chloride 107 105 (96-114) mmol/L Carbon Dioxide 26 30 (20-32) mmol/L BUN 14 10 (7-30) mg/dL Creatinine 1.0 0.9 (0.5-1.5) mg/dL Glucose 166 H 107 (60-115) mg/dL Calcium 9.1 8.9 (8.4-10.6) mg/dL Total Bilirubin 0.6 (0.1-1.5) mg/dL AST 17 (12-35) U/L ALT 13 (4-50) U/L Alkaline Phosphatase 127 (40-150) U/L Total Protein 7.0 (6.0-8.3) g/dL Albumin 4.3 (3.3-5.0) g/dL All other labs normal. Assessment and Plan Assessment and plan (1) GI bleed: Problem comment: Serial hemoglobins, temporarily stop aspirin, ppi, EGD tomorrow Status: Acute Plan The patient is a 71-year-old male with anemia and GI bleed. Differential includes upper GI bleed secondary to ulcer, diverticular bleed and possibly chronic radiation proctitis. He has a history of diverticular bleeding in the past which is the most likely source, however certainly after having radiation this could be the cause. He does not have any tenesmus or diarrhea which would suggest radiation proctitis. Recommend EGD today. If this is normal as it was in the past then if symptoms improve he could be considered for outpatient colonoscopy verses inpatient if bleeding continues. If he does have radiation proctitis then he will need to see GI. I discussed the plan with the patient and he is agreeable to proceed. We did discuss risks and benefits of the procedure.
--- NOTE | 2022-08-29 13:11 | W.ANESCHARGE ---
Anesthesia Charges Start Date/Time Anesthesia Start Date: 08/29/22 Anesthesia Start Time: 12:05 Stop Date/Time Anesthesia Stop Date: 08/29/22 Anesthesia Stop Time: 12:35 Summary Emergency: No Extremes of Age: Over 71-CPT 70115
[2022-08-29] MEDS: METOPROLOL SUCCINATE (XL) 100 MG TAB PO (13:13)
[2022-08-29] MEDS: METFORMIN 1,000 MG TABLET 1000 MG PO (13:13)
[2022-08-29] MEDS: OMEPRAZOLE 20 MG CAPSULE DR PO (13:13)
[2022-08-29] MEDS: POTASSIUM CHLORIDE 10 MEQ CAPSULE ER 20 MEQ PO (13:13)
--- NOTE | 2022-08-29 13:41 | PC.NURSE ---
pt up from EGD at 1239. see post op routine for frequents, meds held prior to procedure, given after. advancing diet to regular and tolerating well. denies pain.
--- NOTE | 2022-08-29 14:35 | PC.NURSE ---
Pt up with Ax1. saline locked at 1430 d/t tolerating PO intake after scope. echo in room at this time.
[2022-08-29] MEDS: PERFLUTREN LIPID MICROSPHERES 2 ML VIAL IV (15:18)
[2022-08-29] MEDS: ABIRATERONE 250 MG PO (15:48)
--- NOTE | 2022-08-29 16:01 | P.DS_ITS ---
DS: Providers Provider Date Seen: 08/29/22 Date of admission: 08/28/22 19:45 Primary care physician: Bart Castelan MD Admitting Clinician: Kwadwo Tyson MD Consults: OT, PT, Nutrition Attending Physician on discharge: Kwadwo Tsyon MD Date of Discharge: 08/29/22 DS: Diagnosis Discharge Diagnosis (1) Syncope: Status: Acute Problem details: TTE 08/28: Final Impressions: 1. Technically limited exam. 2. Echo contrast was administrered to enhance visualization of all left ventri cular segments. 3. Normal left ventricular size, mildly increased wall thickness, normal global systolic function, calculated EF of 62 %. 4. Right ventricular cavity size is normal, global systolic RV function is normal. 5. No significant valve disease detected. (2) CAD (coronary artery disease): Status: Acute Problem details: - s/p cardiac stenting x3 (prox and mid LAD, distal circumflex) at [facility] 11/01 for unstable angina (3) Prostate cancer: Status: Acute Problem details: - follows with [facility] (4) Type 2 diabetes mellitus: Status: Acute Problem details: - continued Metformin (2000mg/day). Hemoglobin A1c 06/25/2022 was 5.8 (5) GI bleed: Status: Acute Problem details: - EGD reassuring 08/29 - history of diverticular bleed, Hgb stable DS: Summary Hospital Course Hospital Course: 71-year-old male with history of prostate cancer, admitted to the hospital after syncopal episode at home. He was also noted to have stool changes of the past 1-2 weeks and unintentional weight loss, in addition to history of diverticular bleed in 2012. During stay, telemetry remained stable. EGD performed with Dr. Crook of general surgery revealed no acute bleeding or concerning lesions, repeat echocardiogram reassuring. Bora was noted to be anemic; however this does not appear to be acute, given hemoglobin of 10.2 in May of 2022 (per [facility] records). Patient was ambulating independently on hospital day 2, no recurrence of syncope or presyncope noted. He was requesting discharge home under the care of his on hospital day 1. Patient's comorbidities are noted above. Blood pressure noted to be low on admission, home dose of amlodipine held. We continued his losartan and metoprolol without incident. We are holding his aspirin for 3 days, will restart at the end of the week if he remains hemodynamically stable. Status at Discharge Functional status at discharge: independent ambulation Overall status at discharge: patient is back to baseline Time Spent with Patient Time attestation: Total time spent providing and/or coordinating discharge services: Time spent: Greater than 30 minutes Specific discharge activities: Medication changes, care coordination, updates to patient and Exam Narrative: Exam Narrative: GEN: Alert and oriented, nontoxic in appearance HEENT: Normal external ears, EOMIs bilaterally, mild conjunctival pallor CV: RRR, No concerning murmurs, rubs, or gallops R: LCTA bilaterally without concerning wheezing, rales, or rhonchi Ext: wwp, no concerning edema Skin: No concerning skin lesions or rashes on exposed skin Neuro: Nonfocal Psych: Appropriate Const: Vital Signs, click to edit/add: Vital Signs - 24 hr 08/28/22 20:12 08/28/22 19:09 08/28/22 16:30 Temperature 98.2 F Pulse Rate Pulse Rate [Left A pical] 74 Pulse Rate [Pulse Oximeter] 72 Pulse Rate [orthos tatic lying Pulse Oximeter] Pulse Rate [orthos tatic sitting Puls e Oximeter] Pulse Rate [orthos tatic standing Pul se Oximeter] Respiratory Rate 20 18 Blood Pressure [Le ft Arm] 153/82 H Blood Pressure [Ri ght Upper Arm] 113/56 L Blood Pressure [or thostatic lying] Blood Pressure [or thostatic sitting] Blood Pressure [or thostatic standing ] Pulse Oximetry 99 99 99 Oxygen Delivery Nj thod Room Air Room Air 08/28/22 17:00 08/28/22 17:30 08/28/22 18:00 Temperature Pulse Rate Pulse Rate [Left A pical] Pulse Rate [Pulse Oximeter] 71 70 77 Pulse Rate [orthos tatic lying Pulse Oximeter] Pulse Rate [orthos tatic sitting Puls e Oximeter] Pulse Rate [orthos tatic standing Pul se Oximeter] Respiratory Rate 12 15 20 Blood Pressure [Le ft Arm] Blood Pressure [Ri ght Upper Arm] 129/59 L 142/72 H 115/59 L Blood Pressure [or thostatic lying] Blood Pressure [or thostatic sitting] Blood Pressure [or thostatic standing ] Pulse Oximetry 98 98 98 Oxygen Delivery Me thod Room Air Room Air 08/28/22 18:30 08/28/22 19:00 08/28/22 20:19 Temperature Pulse Rate Pulse Rate [Left A pical] Pulse Rate [Pulse Oximeter] 75 78 72 Pulse Rate [orthos tatic lying Pulse Oximeter] Pulse Rate [orthos tatic sitting Puls e Oximeter] Pulse Rate [orthos tatic standing Pul se Oximeter] Respiratory Rate 10 L 13 22 Blood Pressure [Le ft Arm] Blood Pressure [Ri ght Upper Arm] 135/64 129/65 129/63 Blood Pressure [or thostatic lying] Blood Pressure [or thostatic sitting] Blood Pressure [or thostatic standing ] Pulse Oximetry 99 98 22 [facility] Room [facility] 08/28/22 20:12 08/28/22 19:08 08/28/22 23:00 Temperature Pulse Rate 73 Pulse Rate [Left A pical] Pulse Rate [Pulse Oximeter] Pulse Rate [orthos tatic lying Pulse Oximeter] Pulse Rate [orthos tatic sitting Puls e Oximeter] Pulse Rate [orthos tatic standing Pul se Oximeter] Respiratory Rate 20 20 Blood Pressure [Le ft Arm] Blood Pressure [Ri ght Upper Arm] Blood Pressure [or thostatic lying] Blood Pressure [or thostatic sitting] Blood Pressure [or thostatic standing ] Pulse Oximetry 99 98 Oxygen Delivery [facility] Room Air Room Air 08/28/22 23:00 08/29/22 01:01 08/29/22 03:00 Temperature 98.2 F Pulse Rate 71 Pulse Rate [Left A pical] 75 Pulse Rate [Pulse Oximeter] Pulse Rate [orthos tatic lying Pulse Oximeter] Pulse Rate [orthos tatic sitting Puls e Oximeter] Pulse Rate [orthos tatic standing Pul se Oximeter] Respiratory Rate 20 18 Blood Pressure [Le ft Arm] 132/57 L Blood Pressure [Ri ght Upper Arm] Blood Pressure [or thostatic lying] Blood Pressure [or thostatic sitting] Blood Pressure [or thostatic standing ] Pulse Oximetry 98 [facility] 08/29/22 05:32 08/29/22 07:00 08/29/22 07:00 Temperature 98.1 F Pulse Rate Pulse Rate [Left A pical] 75 Pulse Rate [Pulse Oximeter] Pulse Rate [orthos tatic lying Pulse Oximeter] 76 Pulse Rate [orthos tatic sitting Puls e Oximeter] 96 Pulse Rate [orthos tatic standing Pul se Oximeter] 72 Respiratory Rate 18 18 Blood Pressure [Le ft Arm] 128/58 L Blood Pressure [Ri ght Upper Arm] Blood Pressure [or thostatic lying] 156/76 H Blood Pressure [or thostatic sitting] 145/72 H Blood Pressure [or thostatic standing ] 150/72 H Pulse Oximetry 98 96 Oxygen Delivery Me thod Room Air Room Air 08/29/22 07:00 08/29/22 07:00 08/29/22 12:39 Temperature 97.9 F Pulse Rate 75 84 Pulse Rate [Left A pical] 75 Pulse Rate [Pulse Oximeter] Pulse Rate [orthos tatic lying Pulse Oximeter] Pulse Rate [orthos tatic sitting Puls e Oximeter] Pulse Rate [orthos tatic standing Pul se Oximeter] Respiratory Rate 18 18 Blood Pressure [Le ft Arm] 122/66 Blood Pressure [Ri ght Upper Arm] Blood Pressure [or thostatic lying] Blood Pressure [or thostatic sitting] Blood Pressure [or thostatic standing ] Pulse Oximetry Oxygen Delivery Me thod Room Air 08/29/22 12:45 08/29/22 13:00 08/29/22 13:15 Temperature 97.9 F Pulse Rate Pulse Rate [Left A pical] 97 81 83 Pulse Rate [Pulse Oximeter] Pulse Rate [orthos tatic lying Pulse Oximeter] Pulse Rate [orthos tatic sitting Puls e Oximeter] Pulse Rate [orthos tatic standing Pul se Oximeter] Respiratory Rate 18 18 18 Blood Pressure [Le ft Arm] 120/72 168/77 H 154/76 H Blood Pressure [Ri ght Upper Arm] Blood Pressure [or thostatic lying] Blood Pressure [or thostatic sitting] Blood Pressure [or thostatic standing ] Pulse Oximetry 97 98 96 Oxygen Delivery Me thod Room Air Room Air Room Air 08/29/22 15:53 08/29/22 15:53 Temperature Pulse Rate Pulse Rate [Left A pical] Pulse Rate [Pulse Oximeter] Pulse Rate [orthos tatic lying Pulse Oximeter] Pulse Rate [orthos tatic sitting Puls e Oximeter] Pulse Rate [orthos tatic standing Pul se Oximeter] Respiratory Rate 18 Blood Pressure [Le ft Arm] Blood Pressure [Ri ght Upper Arm] Blood Pressure [or thostatic lying] Blood Pressure [or thostatic sitting] Blood Pressure [or thostatic standing ] Pulse Oximetry 94 94 Oxygen Delivery Me thod Room Air DS: Data Data Completed and Pending Labs on day of discharge: Labs from last 24 hours 08/29/22 08/29/22 08/28/22 07:34 07:34 22:48 WBC 3.67 L RBC 3.07 L Hgb 9.5 L 8.9 L Hct 27.9 L MCV 91 MCH 31 MCHC 34 RDW Coeff of Arnold 13.2 Plt Count 225 Neut % (Auto) 71.4 Lymph % (Auto) 12.8 L Crowley % (Auto) 9.0 Eos % (Auto) 6.3 Baso % (Auto) 0.5 Neut # (Auto) 2.60 Lymph # (Auto) 0.50 L Crowley # (Auto) 0.30 Eos # (Auto) 0.20 Baso # (Auto) 0.00 Abs Immat Gran (auto) 0.00 Imm/Tot Granulo (auto) 0.0 INR Sodium 142 Potassium 3.4 L Chloride 105 Carbon Dioxide 30 BUN 10 Creatinine 0.9 Estimated Creat Clear 73.21 Estimated GFR 92 Glucose 107 Calcium 8.9 Total Bilirubin AST ALT Alkaline Phosphatase C-Reactive Protein Total Protein Albumin Urine Color Urine Appearance Urine pH Ur Specific Kirby Urine Protein Urine Glucose (UA) Urine Ketones Urine Blood Urine Nitrite Urine Bilirubin Urine Urobilinogen Ur Leukocyte Esterase Urine RBC Urine WBC Ur Squamous Epith Cells Urine Bacteria SARS-CoV-2 (PCR) Influenza Type A (PCR) Influenza Type B (PCR) RSV (PCR) POC Troponin I Blood Type Antibody Screen 08/28/22 08/28/22 08/28/22 19:30 19:30 15:33 WBC RBC Hgb 9.3 L Hct MCV MCH MCHC RDW Coeff of Arnold Plt Count Neut % (Auto) Lymph % (Auto) Crowley % (Auto) Eos % (Auto) Baso % (Auto) Neut # (Auto) Lymph # (Auto) Crowley # (Auto) Eos # (Auto) Baso # (Auto) Abs Immat Gran (auto) Imm/Tot Granulo (auto) INR Sodium Potassium Chloride Carbon Dioxide BUN Creatinine Estimated Creat Clear Estimated GFR Glucose Calcium Total Bilirubin AST ALT Alkaline Phosphatase C-Reactive Protein Total Protein Albumin Urine Color Urine Appearance Urine pH Ur Specific Kirby Urine Protein Urine Glucose (UA) Urine Ketones Urine Blood Urine Nitrite Urine Bilirubin Urine Urobilinogen Ur Leukocyte Esterase Urine RBC Urine WBC Ur Squamous Epith Cells Urine Bacteria SARS-CoV-2 (PCR) Influenza Type A (PCR) Influenza Type B (PCR) RSV (PCR) POC Troponin I 0.00 L Blood Type B Negative Antibody Screen NEGATIVE 08/28/22 08/28/22 08/28/22 15:33 15:33 15:33 WBC 4.39 L RBC 3.25 L Hgb 10.1 L Hct 29.7 L MCV 91 MCH 31 MCHC 34 RDW Coeff of Arnold 13.2 Plt Count 242 Neut % (Auto) 75.4 H Lymph % (Auto) 9.8 L Crowley % (Auto) 8.2 Eos % (Auto) 6.2 Baso % (Auto) 0.2 Neut # (Auto) 3.30 Lymph # (Auto) 0.40 L Crowley # (Auto) 0.40 Eos # (Auto) 0.30 Baso # (Auto) 0.00 Abs Immat Gran (auto) 0.00 Imm/Tot Granulo (auto) 0.2 INR 0.88 L Sodium 141 Potassium 3.5 L Chloride 107 Carbon Dioxide 26 BUN 14 Creatinine 1.0 Estimated Creat Clear 70.97 Estimated GFR 81 Glucose 166 H Calcium 9.1 Total Bilirubin 0.6 AST 17 ALT 13 Alkaline Phosphatase 127 C-Reactive Protein 1.1 H Total Protein 7.0 Albumin 4.3 Urine Color Urine Appearance Urine pH Ur Specific Kirby Urine Protein Urine Glucose (UA) Urine Ketones Urine Blood Urine Nitrite Urine Bilirubin Urine Urobilinogen Ur Leukocyte Esterase Urine RBC Urine WBC Ur Squamous Epith Cells Urine Bacteria SARS-CoV-2 (PCR) Influenza Type A (PCR) Influenza Type B (PCR) RSV (PCR) POC Troponin I Blood Type Antibody Screen 08/28/22 08/28/22 15:08 15:08 WBC RBC Hgb Hct MCV MCH MCHC RDW Coeff of Arnold Plt Count Neut % (Auto) Lymph % (Auto) Crowley % (Auto) Eos % (Auto) Baso % (Auto) Neut # (Auto) Lymph # (Auto) Crowley # (Auto) Eos # (Auto) Baso # (Auto) Abs Immat Gran (auto) Imm/Tot Granulo (auto) INR Sodium Potassium Chloride Carbon Dioxide BUN Creatinine Estimated Creat Clear Estimated GFR Glucose Calcium Total Bilirubin AST ALT Alkaline Phosphatase C-Reactive Protein Total Protein Albumin Urine Color Yellow Urine Appearance Clear Urine pH 5.0 Ur Specific Kirby 1.020 Urine Protein Trace A Urine Glucose (UA) Trace A Urine Ketones Negative Urine Blood Negative Urine Nitrite Negative Urine Bilirubin Negative Urine Urobilinogen 0.2 Ur Leukocyte Esterase Negative Urine RBC 0-2 Urine WBC 5-10 A Ur Squamous Epith Cells None Urine Bacteria None SARS-CoV-2 (PCR) Negative SARS-CoV-2 Influenza Type A (PCR) Negative PCR FLU A Influenza Type B (PCR) Negative PCR FLU B RSV (PCR) Negative PCR RSV POC Troponin I Blood Type Antibody Screen Preliminary micro results at discharge 08/28/22 15:08 Urine Culture - Preliminary Urine,Clean Catch NO GROWTH AFTER 24 HOURS Discharge Plan Discharge Disposition: Home, Self-Care Date of Admission: 08/28/22 19:45 Attending Provider on Discharge: Summer Maldonado Consulting Providers: Lexi Crook Primary Care Provider: Bart Castelan Condition: Improved Anticipated Discharge Date/Time: 08/29/22 15:54 Discharge Medications: New metformin 1,000 mg Tablet 1,000 mg PO BIDWM Qty: 60 0RF omeprazole 20 mg Capsule,Delayed Release(Dr/Ec) 20 mg PO DAILY Qty: 14 0RF Continued abiraterone 250 mg tablet 1,000 mg PO DAILY Rx Instructions: must be taken on empty stomach, at least 1 hr before or 2 hrs after a meal/food potassium chloride [Klor-Con M20] 20 mEq tablet,ER particles/crystals 20 meq PO BID metformin 500 mg tablet extended release 24hr 2,000 mg PO BID Qty: 90 3RF atorvastatin [Lipitor] 40 mg tablet 40 mg PO HS metoprolol succinate [Toprol XL] 100 mg tablet extended release 24 hr 100 mg PO DAILY losartan 25 mg tablet 25 mg PO DAILY clindamycin phosphate 1 % lotion 1 applic topical DAILY nitroglycerin [Nitrostat] 0.4 mg tablet, sublingual 0.4 mg sublingual Q5M PRN Rx Instructions: do not exceed 3 doses per episode clotrimazole-betamethasone 1-0.05 % cream 1 applic topical BID Qty: 45 2RF Held amlodipine 2.5 mg tablet 2.5 mg PO DAILY Hold Instructions: Resume on 09/05/22. Check BP daily - if more than 2 days with BP >150/80, restart Amlodipine amlodipine 5 mg tablet 5 mg PO DAILY Hold Instructions: Resume on 09/05/22. Check BP daily - if more than 2 days with BP >150/80, restart Amlodipine aspirin [Adult Aspirin Regimen] 81 mg tablet,delayed release (DR/EC) 81 mg PO DAILY Hold Instructions: Resume on 09/02/22. Restart Saturday if you have no issues with dark or bloody stool Discharge Orders: Discharge Order (Routine); Ordered 08/29/22 Ordered By: Summer Maldonado Patient Education: Syncope (DC) Additional Instructions: Hold your Amlodipine, can restart when BP is >150/80 for 2 consecutive days. I would take Omeprazole (OTC) once/day for [address] Gomez for a f/u to see if he thinks you should have a colonoscopy sooner than next year. You need to come see us again with any new/recurrent symptoms Activity Level: No strenuous activity Discharge Diet: Diabetic Follow Up Appointments: Drake Gomez MD [Staff Physician] - (1-2 weeks for f/u) Bart Castelan MD [Primary Care Provider] - (1-2 weeks for hospital d/c followup and BP check) Forms: [employer] [place] Info Instructions
== END 2022-08-29 17:46 | disposition home or self-care (01) ==
LOC: ED 18:29 → MEDSURG 19:46
PROVIDERS: Admitting Provider Family Medicine; Emergency Provider Family Medicine; PCP Internal Medicine; Visit Provider Family Medicine
DX: K92.2 Gastrointestinal hemorrhage, unspecified (principal); R55 Syncope and collapse; E11.9 Type 2 diabetes mellitus without complications; I10 Essential (primary) hypertension; G47.33 Obstructive sleep apnea (adult) (pediatric); E66.9 Obesity, unspecified; I35.1 Nonrheumatic aortic (valve) insufficiency; I25.10 Atherosclerotic heart disease of native coronary artery without angina pectoris; C61 Malignant neoplasm of prostate; R63.4 Abnormal weight loss; Z79.84 Long term (current) use of oral hypoglycemic drugs; R35.0 Frequency of micturition; R53.83 Other fatigue
CPT/HCPCS: 00731; 36415; 43239; 71045; 80048; 80053; 81001; 84484; 85018; 85025; 85610; 86140; 86850; 86900; 86901; 87086; 87502; 87634; 87635; 88305; 93005; 93306; 94761; 97116; 97161; 97165; 99100; 99284; 99285; G0378; A9270; C9113; G0379; J2704; J7120; Q9957

== ENCOUNTER 2022-09-05 14:28 | Outpatient (CLI) | payer MEDICARE, BC, SELFPAY ==
[2022-09-05 16:23] LABS: Immature Reticulocyte Fraction 20.2 % (2.3-13.4); Reticulocyte Hemoglobin Equivi 29.9 pg (29.0-35.0); Reticulocyte Percent 2.6 % (0.5-2.0); Reticulocytes Absolute 0.08 # (0.03-0.08)
[2022-09-05 16:40] LABS: Chloride* 107 mmol/L (96-114); Potassium* 3.9 mmol/L (3.6-5.1); Sodium* 143 mmol/L (135-149)
[2022-09-05 16:42] LABS: Creatinine* 1.1 mg/dL (0.5-1.5); Estimated Glomerular Filt Rate 72 ml/min; Iron* 52 ug/dL (49-181)
[2022-09-05 16:43] LABS: Blood Urea Nitrogen* 12 mg/dL (7-30); Calcium* 9.2 mg/dL (8.4-10.6); Carbon Dioxide* 29 mmol/L (20-32); Glucose* 151 mg/dL (60-115)
[2022-09-05 16:54] LABS: Percent Iron Saturation 16 % (20-50); Total Iron Binding Capacity 320 ug/dL (261-462)
[2022-09-05 19:03] LABS: Vitamin B12* 521 pg/mL (243-894)
[2022-09-07 15:08] LABS: Folate, Serum 9.4 ng/mL (>=5.9)
== END 2022-09-05 14:29 | disposition home or self-care (01) ==
PROVIDERS: PCP Internal Medicine; Visit Provider Internal Medicine
DX: D64.9 Anemia, unspecified (principal); E78.5 Hyperlipidemia, unspecified; I10 Essential (primary) hypertension; R53.83 Other fatigue
CPT/HCPCS: 80048; 82607; 82746; 83540; 83550; 85045

== ENCOUNTER 2022-09-13 18:02 | Outpatient (CLI) | payer MEDICARE, BC, SELFPAY | END 2022-09-13 18:03 | disposition home or self-care (01) | LOC: NFLDUCREF 09-18 14:49 | PROVIDERS: PCP Internal Medicine; Visit Provider Family Medicine | DX: R30.0 Dysuria (principal); N39.0 Urinary tract infection, site not specified | CPT/HCPCS: 87086 ==

== ENCOUNTER 2022-09-21 07:07 | Outpatient (CLI) | payer MEDICARE, BC, SELFPAY ==
--- NOTE | 2022-09-21 08:28 | W.ANESCHARGE ---
Anesthesia Charges Start Date/Time Anesthesia Start Date: 09/21/22 Anesthesia Start Time: 07:45 Stop Date/Time Anesthesia Stop Date: 09/21/22 Anesthesia Stop Time: 08:22 Summary Emergency: No
== END 2022-09-21 07:08 | disposition home or self-care (01) ==
PROVIDERS: PCP Internal Medicine; Visit Provider Internal Medicine
DX: K92.1 Melena (principal); K64.9 Unspecified hemorrhoids; K57.30 Diverticulosis of large intestine without perforation or abscess without bleeding; K62.5 Hemorrhage of anus and rectum; K62.89 Other specified diseases of anus and rectum
CPT/HCPCS: 00811; 45380; 88305; J2704

== ENCOUNTER 2022-09-24 10:23 | Outpatient (CLI) | payer MEDICARE, BC, SELFPAY ==
[2022-09-24 12:15] LABS: Albumin* 3.8 g/dL (3.3-5.0); Chloride* 110 mmol/L (96-114); Potassium* 4.1 mmol/L (3.6-5.1); Sodium* 142 mmol/L (135-149)
[2022-09-24 12:18] LABS: Alanine Aminotransferase* 10 U/L (4-50); Alkaline Phosphatase* 123 U/L (40-150); Aspartate Amino Transferase* 16 U/L (12-35); Bilirubin Total* 0.6 mg/dL (0.1-1.5); Blood Urea Nitrogen* 17 mg/dL (7-30); Carbon Dioxide* 27 mmol/L (20-32); Creatinine* 1.2 mg/dL (0.5-1.5); Estimated Glomerular Filt Rate 65 ml/min; Glucose* 98 mg/dL (60-115); Total Protein* 6.1 g/dL (6.0-8.3)
[2022-09-24 12:19] LABS: Calcium* 8.8 mg/dL (8.4-10.6)
== END 2022-09-24 10:24 | disposition home or self-care (01) ==
LOC: NFLDREF 10:24
PROVIDERS: PCP Internal Medicine; Visit Provider Internal Medicine
DX: D64.9 Anemia, unspecified (principal); I10 Essential (primary) hypertension
CPT/HCPCS: 80053

== ENCOUNTER 2022-10-15 08:19 | Outpatient (CLI) | payer MEDICARE, BC, SELFPAY ==
[2022-10-15 12:27] LABS: Albumin* 3.7 g/dL (3.3-5.0); Chloride* 106 mmol/L (96-114); Sodium* 143 mmol/L (135-149)
[2022-10-15 12:29] LABS: Bilirubin Total* 0.6 mg/dL (0.1-1.5); Carbon Dioxide* 30 mmol/L (20-32); Creatinine* 0.9 mg/dL (0.5-1.5); Estimated Glomerular Filt Rate 91 ml/min
[2022-10-15 12:30] LABS: Alanine Aminotransferase* 12 U/L (4-50); Alkaline Phosphatase* 108 U/L (40-150); Aspartate Amino Transferase* 17 U/L (12-35); Blood Urea Nitrogen* 12 mg/dL (7-30); Calcium* 8.9 mg/dL (8.4-10.6); Glucose* 122 mg/dL (60-115); Total Protein* 6.1 g/dL (6.0-8.3)
== END 2022-10-15 08:20 | disposition home or self-care (01) ==
LOC: NFLDREF 08:21
PROVIDERS: PCP Internal Medicine; Visit Provider Internal Medicine
DX: R30.0 Dysuria (principal)
CPT/HCPCS: 80053; 87086

== ENCOUNTER 2022-10-29 10:39 | Outpatient (CLI) | payer MEDICARE, BC, SELFPAY | END 2022-10-29 10:40 | disposition home or self-care (01) | LOC: NFLDREF 10-30 12:53 | PROVIDERS: PCP Internal Medicine; Visit Provider Internal Medicine | DX: R30.0 Dysuria (principal); N39.0 Urinary tract infection, site not specified | CPT/HCPCS: 87086 ==

== ENCOUNTER 2022-11-16 17:37 | Emergency (ER) | payer MEDICARE, BC, SELFPAY ==
[2022-11-16 18:01] VITALS: BP 174/70; PULSE 88; RESP 16; TEMP 37.1; O2SAT 97; BMI 27.5
[2022-11-16 18:19] LABS: Appearance Urine Clear (Clear); Bilirubin Urine Negative (Negative); Blood Urine Trace-intact (Negative); Color Urine Yellow (Yellow); Glucose Urine Negative (Negative); Ketones Urine Negative (Negative); Leukocyte Esterase Urine Negative (Negative); Nitrite Urine Negative (Negative); Protein Urine 2+ (Negative); Urobilinogen Urine 0.2 (0.2-1.0)
--- NOTE | 2022-11-16 18:27 | ED_ITS ---
HPI - Male Genitourinary General Chief complaint: Urogenital Problems, Male Stated complaint: Cannot urinate Time Seen by Provider: 11/16/22 18:11 History of Present Illness HPI Narrative: 72-year-old man presenting to the emergency department with concern of difficulty with urinating. He has been urinating frequently, urgently for many months.. Is concerned that is retaining urine; his abdomen is feeling particularly full. There has been no fever. Is being treated for prostate c ancer. Has a history of radiation cystitis and proctitis. Has apparently been treated for recurrent urinary tract infections lately as well. Just finished a course of antibiotics. Has had end of void dysuria lately in the area of the glans. Is not constipated, tending toward loose stools. Upon review of records the last couple urine cultures I see showed no growth. Later Mr. Rider notes that Primary Care provider has been considering medication it sounds like for overactive bladder. Related Data Home Medications Medication Instructions Recorded Confirmed aspirin 81 mg tablet,delayed 81 mg PO DAILY 06/04/22 10/29/22 release (Adult Aspirin Regimen) nitroglycerin 0.4 mg sublingual 0.4 mg sublingual Q5M PRN 06/04/22 10/29/22 tablet (Nitrostat) abiraterone 250 mg tablet 1,000 mg PO DAILY 07/12/22 11/16/22 potassium chloride 20 mEq 20 meq PO BID 07/12/22 11/16/22 tablet,extended release(part/cryst) (Klor-Con M) amlodipine 2.5 mg tablet 2.5 mg PO DAILY Hypertension 08/29/22 11/16/22 amlodipine 5 mg tablet 5 mg PO DAILY Hypertension 08/29/22 10/29/22 atorvastatin 40 mg tablet (Lipitor) 40 mg PO HS Hyperlipidemia 08/29/22 11/16/22 clindamycin phosphate 1 % lotion 1 applic topical DAILY Rash 08/29/22 10/29/22 losartan 25 mg tablet 25 mg PO DAILY Hypertension 08/29/22 11/16/22 Previous Rx's Medication Instructions Recorded metformin 500 mg tablet,extended 2,000 mg PO BID Diabetes #90 tabs 07/12/22 release 24hr clotrimazole-betamethasone 1 1 applic topical BID Rash #45 grams 07/30/22 %-0.05 % topical cream iron,carbonyl 65 mg-vitamin C 125 1 tab PO QDAY Anemia #30 tabs 09/05/22 mg tablet,delayed release (Vitron-C) metoprolol succinate 100 mg 100 mg PO DAILY Hypertension #90 09/24/22 tablet,extended release 24 hr tabs (Toprol XL) tamsulosin 0.4 mg capsule 0.4 mg PO QHS BPH #30 caps 10/09/22 ciprofloxacin HCl 250 mg tablet 250 mg PO BID UTI #20 tabs 10/29/22 (Cipro) Allergies Allergy/AdvReac Type Severity Reaction Status Date / Time ibuprofen Allergy Mild Verified 10/15/22 08:03 NSAIDS (Non-Steroidal Allergy Mild Unknown Verified 10/15/22 08:03 Anti-Inflamma adhesive Allergy Unknown Verified 10/15/22 08:03 Review of Systems Status of ROS: Reports: 6 or more systems reviewed and unremarkable except as noted in History and below [facility] Medical History Adenomatous polyp of colon Anemia Aortic regurgitation BPH (benign prostatic hyperplasia) CAD (coronary artery disease) Diabetes Dysuria Elevated blood pressure reading in office with diagnosis of hypertension Essential hypertension Fatigue GI bleed Hearing loss d/t noise History of atrial fibrillation History of renal calculi Hyperlipemia Hypertension IBS (irritable bowel syndrome) Obesity JOE (obstructive sleep apnea) Prostate cancer Prostate cancer Radiation cystitis Rash Type 2 diabetes mellitus Unintentional weight loss Urinary frequency Urinary tract infection Surgical History History of appendectomy (04/25/07) History of cholecystectomy (04/25/07) Family History (Updated 08/28/22 @ 19:51 by Kwadwo Tyson MD) Brother Prostate cancer Alcohol dependence Father Prostate cancer Social History (Updated 08/28/22 @ 19:52 by Kwadwo Tyson MD) Narrative: He is here with his . 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 Code status is full. 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 He does not smoke. Does not drink alcohol. Highest level of school completed/degree received: some college, no degree Smoking Status: Former smoker How often do you have a drink containing alcohol: never AUDIT-C Alcohol total score: 0 Non-prescribed substance use: denies use Caffeine: Yes (1 can Coca[employer] daily) service: No Exam Narrative: Exam Narrative: I catch up with Mr. Rider after another return from the bathroom. He is definitely much more slim then last I saw him. Appears to be of good energy. Skin is warm and dry. Ambulating without notable difficulty. Breathing easily. Left eyes cloudy/aphakic. Examination of the abdomen generally full. Soft. Mildly uncomfortable to palpation in the suprapubic area. Genitourinary exam without inflammatory changes about the penis/glans. Const: Vital Signs, click to edit/add: Vital Signs - 24 hr 11/16/22 18:01 Temperature 98.7 F Pulse Rate [Pulse Oximeter] 88 Respiratory Rate 16 Blood Pressure [Ri ght Upper Arm] 174/70 H Pulse Oximetry 97 Oxygen Delivery Me thod Room Air Documenting provider has reviewed patient's vital signs: yes Course Vital Signs Vital signs: Initial Vital Signs Temperature 98.7 F 11/16/22 18:01 Temperature Source Temporal Artery Scan 11/16/22 18:01 Pulse Rate 88 11/16/22 18:01 Pulse Rhythm 11/16/22 18:01 Pulse Strength 3+ Normal 11/16/22 18:01 Respiratory Rate 16 11/16/22 18:01 Blood Pressure 174/70 H 11/16/22 18:01 Blood Pressure Mean 104 11/16/22 18:01 Blood Pressure Position Sitting 11/16/22 18:01 Pulse Oximetry 97 11/16/22 18:01 Oxygen Delivery Method 11/16/22 18:01 Vital Signs Temperature 98.7 F 11/16/22 18:01 Pulse Rate 88 11/16/22 18:01 Respiratory Rate 16 11/16/22 18:01 Blood Pressure 174/70 H 11/16/22 18:01 Pulse Oximetry 97 11/16/22 18:01 Oxygen Delivery Method 11/16/22 18:01 Temperature 98.7 F 11/16/22 18:01 Pulse Rate 88 11/16/22 18:01 Respiratory Rate 16 11/16/22 18:01 Blood Pressure 174/70 H 11/16/22 18:01 Pulse Oximetry 97 11/16/22 18:01 Oxygen Delivery Method 11/16/22 18:01 MDM - Male Genitourinary MDM Narrative Medical decision making narrative: Urinalysis to be collected. Bladder scan requested- scanned for 5 mL postvoid. I did do a follow-up confirmatory bedside ultrasound and I do not appreciate significant fluid collection the bladder. To confirm finally we did straight cath with uroject for 150 mL of urine. Urinalysis without evidence of infection. 2+ protein and trace blood. At this point presume somewhat related to radiation cystitis is this sense of urgency. Unclear source of dysuria. Phenazopyridine might be helpful? Might be benefited by anxiolytic? I did discuss this with primary care provider and potential benefit of medication like oxybutynin. Preference is to wait with concern of polypharmacy. Medical Records Attestation: I reviewed the patient's medical records. Lab Data Attestation: I reviewed the patient's lab results. Labs: Lab Results 11/16/22 Range/Units 18:05 Urine Color Yellow (Yellow) Urine Appearance Clear (Clear) Urine pH 7.0 (5.0-8.5) Ur Specific [place] 1.020 (1.000-1.030) Urine Protein 2+ A (Negative) Urine Glucose (UA) Negative (Negative) Urine Ketones Negative (Negative) Urine Blood Trace-intact A (Negative) Urine Nitrite Negative (Negative) Urine Bilirubin Negative (Negative) Urine Urobilinogen 0.2 (0.2-1.0) Ur Leukocyte Esterase Negative (Negative) Urine RBC 0-2 (0-2) Urine WBC 0-2 (0-5) Ur Squamous Epith Cells None (None-Few) Urine Bacteria None (None) Discharge Plan Discharge Clinical Impression: Urinary frequency, Dysuria Patient Disposition: Home w/ Parent or Adult Condition: Stable Additional Instructions: I know you do not want to urinate excessively but take this urinal with you so it is easier and focus on hydration --try for 2-3 L of water/liquid in daily; this might also help the symptoms of end of void dysuria. I suppose a condom catheter or stadium Pal would be another way to go about this. :) I think if you can keep track of your urine out you can be more reassured and maybe more relaxed that you're not retaining urine. See how the [employer] phenazopyridine and lorazepam work for you at least in the short term. Dr. Castelan is happy to receive communication. Otherwise follow up as planned. Return for marked increase in abdominal pain or fever. Prescriptions: No Action abiraterone 250 mg tablet 1,000 mg PO DAILY Rx Instructions: must be taken on empty stomach, at least 1 hr before or 2 hrs after a meal/food potassium chloride [Klor-Con M20] 20 mEq tablet,ER particles/crystals 20 meq PO BID metformin 500 mg tablet extended release 24hr 2,000 mg PO BID Qty: 90 3RF ciprofloxacin HCl [Cipro] 250 mg tablet 250 mg PO BID Qty: 20 0RF Vitron-C 65 mg iron- 125 mg tablet,delayed release (DR/EC) 1 tab PO QDAY Qty: 30 0RF metoprolol succinate [Toprol XL] 100 mg tablet extended release 24 hr 100 mg PO DAILY Qty: 90 3RF atorvastatin [Lipitor] 40 mg tablet 40 mg PO HS amlodipine 2.5 mg tablet 2.5 mg PO DAILY Hold Instructions: Resume on 09/05/22. Check BP daily - if more than 2 days with BP >150/80, restart Amlodipine amlodipine 5 mg tablet 5 mg PO DAILY Hold Instructions: Resume on 09/05/22. Check BP daily - if more than 2 days with BP >150/80, restart Amlodipine losartan 25 mg tablet 25 mg PO DAILY clindamycin phosphate 1 % lotion 1 applic topical DAILY nitroglycerin [Nitrostat] 0.4 mg tablet, sublingual 0.4 mg sublingual Q5M PRN Rx Instructions: do not exceed 3 doses per episode aspirin [Adult Aspirin Regimen] 81 mg tablet,delayed release (DR/EC) 81 mg PO DAILY Hold Instructions: Resume on 09/02/22. Restart Saturday if you have no issues with dark or bloody stool clotrimazole-betamethasone 1-0.05 % cream 1 applic topical BID Qty: 45 2RF tamsulosin 0.4 mg capsule 0.4 mg PO QHS Qty: 30 3RF Follow Up/Referrals: Bart Castelan MD [Primary Care Provider] - Stand Alone Forms: [employer] [place] Info Instructions
[2022-11-16 19:07] LABS: RBC Urine 0-2 (0-2); WBC Urine 0-2 (0-5)
[2022-11-16] MEDS: lidocaine HCL 2 % JELLY (TOP) STERILE 6 ML UR (19:37)
== END 2022-11-16 20:33 | disposition home or self-care (01) ==
PROVIDERS: Emergency Provider Family Medicine; PCP Internal Medicine
DX: R35.0 Frequency of micturition (principal); R30.0 Dysuria
CPT/HCPCS: 81001; 81003; 81015; 99283; 99284

== ENCOUNTER 2023-01-14 08:49 | Outpatient (CLI) | payer MEDICARE, BC, SELFPAY | END 2023-01-14 08:50 | disposition home or self-care (01) | LOC: NFLDREF 01-15 08:32 | PROVIDERS: PCP Internal Medicine; Referring Provider Internal Medicine; Visit Provider Internal Medicine | DX: C61 Malignant neoplasm of prostate (principal); N40.0 Benign prostatic hyperplasia without lower urinary tract symptoms; E11.9 Type 2 diabetes mellitus without complications; D64.9 Anemia, unspecified; I10 Essential (primary) hypertension; E78.5 Hyperlipidemia, unspecified; R30.0 Dysuria; N39.0 Urinary tract infection, site not specified | CPT/HCPCS: 80053; 80061; 82043; 82570; 84153 ==

== ENCOUNTER 2023-07-05 19:35 | Emergency (ER) | payer MEDICARE, BC, SELFPAY ==
[2023-07-05 20:12] VITALS: BP 181/76; PULSE 73; RESP 18; TEMP 36.7; O2SAT 98; BMI 24.1
[2023-07-05 20:46] LABS: Basophils Absolute Auto 0.02 K/uL (0.00-0.30); Basophils Percent Auto 0.4 % (0.0-3.0); Eosinophils Absolute Auto 0.27 K/uL (0.00-0.50); Eosinophils Percent Auto 5.6 % (0.0-7.0); Hematocrit 33.4 % (37.0-53.0); Hemoglobin* 10.7 gm/dL (13.5-17.5); Immature Granulocytes Abs Auto 0.01 K/uL (0.00-0.30); Immature Granulocytes Pct Auto 0.2 %; Lymphocytes Percent Auto 10.7 % (20-44); Mean Corpuscular HGB Conc 32 gm/dL (32-36); Mean Corpuscular Hemoglobin 29 pg (26-34); Mean Corpuscular Volume 90 fL (80-100); Monocytes Percent Auto 7.2 % (0.0-11.0); Neutrophils Percent Auto 75.9 % (42.0-72.0); Platelet Count* 198 K/uL (140-440); RDW Coefficient of Variation % 13.5 % (11.5-15.5); Red Blood Count 3.73 m/uL (4.30-5.90); White Blood Count* 4.84 K/uL (4.50-11.00)
[2023-07-05 20:48] LABS: Appearance Urine Clear (Clear); Bilirubin Urine Negative (Negative); Blood Urine 2+ (Negative); Color Urine Yellow (Yellow); Glucose Urine Negative (Negative); Ketones Urine Negative (Negative); Leukocyte Esterase Urine Negative (Negative); Nitrite Urine Negative (Negative); Protein Urine 2+ (Negative); Specific Gravity Urine 1.025 (1.000-1.030); Urobilinogen Urine 0.2 (0.2-1.0)
[2023-07-05 20:49] LABS: Slide Review Reflex No
[2023-07-05 20:58] LABS: Chloride* 102 mmol/L (96-114)
[2023-07-05 20:59] LABS: WBC Urine 0-2 (0-5)
[2023-07-05 20:59] LABS: Sodium* 139 mmol/L (135-149)
[2023-07-05 21:01] LABS: Creatinine* 1.3 mg/dL (0.5-1.5); Est. Creatinine Clearance* 55.51; Estimated Glomerular Filt Rate 59 ml/min
[2023-07-05 21:02] LABS: Anion Gap 7 mEq/L (7-15); Blood Urea Nitrogen* 30 mg/dL (7-30); Calcium* 9.2 mg/dL (8.4-10.6); Carbon Dioxide* 30 mmol/L (20-32); Glucose* 126 mg/dL (60-115)
--- NOTE | 2023-07-05 21:17 | ED.MALEGU ---
HPI - Male Genitourinary General Chief complaint: Urogenital Problems, Male Stated complaint: Severe urogen pain-difficulty urinating Time Seen by Provider: 07/05/23 20:19 History of Present Illness HPI Narrative: Patient is a 72-year-old gentleman well known to me who has history of radioactive ablation of his prostate for prostate cancer is had a number of issues including radiation colitis. He has radiation cystitis as well. He comes in today with urinary frequency and burning for the last several days. He feels like his bladder is full and we did do a postvoid residual and found to be 35 mL. His urine shows no signs of infection. His CBC basic metabolic panel are normal. He has no other significant symptoms of cystitis such as fevers chills night sweats cough shortness of breath abdominal pain or rash. Related Data Home Medications Medication Instructions Recorded Confirmed nitroglycerin 0.4 mg sublingual 0.4 mg sublingual Q5M PRN 06/04/22 01/15/23 tablet (Nitrostat) abiraterone 250 mg tablet 1,000 mg PO DAILY 07/12/22 01/15/23 potassium chloride 20 mEq 20 meq PO BID 07/12/22 01/15/23 tablet,extended release(part/cryst) (Klor-Con M) amlodipine 2.5 mg tablet 2.5 mg PO DAILY Hypertension 08/29/22 01/15/23 atorvastatin 40 mg tablet (Lipitor) 40 mg PO HS Hyperlipidemia 08/29/22 01/15/23 losartan 25 mg tablet 25 mg PO DAILY Hypertension 08/29/22 01/15/23 iron,carbonyl 65 mg-vitamin C 125 1 tab PO .every other day Anemia 01/15/23 01/15/23 mg tablet,delayed release (Vitron-C) metformin 500 mg tablet,extended 1,500 mg PO BID Diabetes 01/15/23 01/15/23 release 24hr oxygen-air delivery systems 01/15/23 01/15/23 Previous Rx's Medication Instructions Recorded clotrimazole-betamethasone 1 1 applic topical BID Rash #45 grams 07/30/22 %-0.05 % topical cream metoprolol succinate 100 mg 100 mg PO DAILY Hypertension #90 09/24/22 tablet,extended release 24 hr tabs (Toprol XL) tamsulosin 0.4 mg capsule 0.4 mg PO QHS BPH #30 caps 10/09/22 clindamycin phosphate 1 % lotion 1 applic topical BID Rash #60 mL 12/12/22 Allergies Allergy/AdvReac Type Severity Reaction Status Date / Time ibuprofen Allergy Mild Verified 01/15/23 08:36 NSAIDS (Non-Steroidal Allergy Mild Unknown Verified 01/15/23 08:36 Anti-Inflamma adhesive Allergy Unknown Verified 01/15/23 08:36 Review of Systems Status of ROS: Reports: 10 or more systems reviewed and unremarkable except as noted in History and below [facility] Medical History Proctitis ?K62.89 - Other specified diseases of anus and rectum (ICD-10) Radiation cystitis ?N30.40 - Irradiation cystitis without hematuria (ICD-10) Diabetes ?E11.9 - Type 2 diabetes mellitus without complications (ICD-10) Prostate cancer ?C61 - Malignant neoplasm of prostate (ICD-10) Dysuria ?R30.0 - Dysuria (ICD-10) Hypertension ?I10 - Essential (primary) hypertension (ICD-10) Elevated blood pressure reading in office with diagnosis of hypertension ?I10 - Essential (primary) hypertension (ICD-10) Urinary tract infection ?N39.0 - Urinary tract infection, site not specified (ICD-10) Anemia ?D64.9 - Anemia, unspecified (ICD-10) BPH (benign prostatic hyperplasia) ?N40.0 - Benign prostatic hyperplasia without lower urinary tract symptoms (ICD-10) Fatigue ?R53.83 - Other fatigue (ICD-10) Urinary frequency ?R35.0 - Frequency of micturition (ICD-10) Unintentional weight loss ?R63.4 - Abnormal weight loss (ICD-10) GI bleed ?K92.2 - Gastrointestinal hemorrhage, unspecified (ICD-10) History of renal calculi ?Z87.442 - Personal history of urinary calculi (ICD-10) History of atrial fibrillation ?Z86.79 - Personal history of other diseases of the circulatory system (ICD-10) Rash ?R21 - Rash and other nonspecific skin eruption (ICD-10) Prostate cancer ?C61 - Malignant neoplasm of prostate (ICD-10) Adenomatous polyp of colon ?D12.6 - Benign neoplasm of colon, unspecified (ICD-10) Type 2 diabetes mellitus ?E11.9 - Type 2 diabetes mellitus without complications (ICD-10) Essential hypertension ?I10 - Essential (primary) hypertension (ICD-10) Hyperlipemia ?E78.5 - Hyperlipidemia, unspecified (ICD-10) JOE (obstructive sleep apnea) ?G47.33 - Obstructive sleep apnea (adult) (pediatric) (ICD-10) Aortic regurgitation ?I35.1 - Nonrheumatic aortic (valve) insufficiency (ICD-10) CAD (coronary artery disease) ?I25.10 - Atherosclerotic heart disease of [place] coronary artery without angina pectoris (ICD-10) Obesity ?E66.9 - Obesity, unspecified (ICD-10) IBS (irritable bowel syndrome) ?K58.9 - Irritable bowel syndrome without diarrhea (ICD-10) Hearing loss d/t noise ?H83.3X9 - Noise effects on inner ear, unspecified ear (ICD-10) Surgical History History of cholecystectomy (04/25/07) ?Z90.49 - Acquired absence of other specified parts of digestive tract (ICD-10) History of appendectomy (04/25/07) ?Z90.49 - Acquired absence of other specified parts of digestive tract (ICD-10) Family History Brother Prostate cancer Alcohol dependence Father Prostate cancer Social History Narrative: He is here with his . 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 Code status is full. 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 He does not smoke. Does not drink alcohol. Highest level of school completed/degree received: some college, no degree Smoking Status: Former smoker How often do you have a drink containing alcohol: never AUDIT-C Alcohol total score: 0 Non-prescribed substance use: denies use Caffeine: Yes (1 can [employer] daily) service: No Exam Narrative: Exam Narrative: EXAM GENERAL: Patient appears comfortable and well. EYES: No scleral icterus. ENT: Tympanic membranes and oropharynx normal. THYROID: no thyroid nodules or thyromegaly. LYMPH: No supraclavicular or cervical lymphadenopathy. SKIN: Visible skin seen during exam normal or with benign process only. EXT: No dependent lower extremity pedal edema. HEART: Regular rate and rhythm with no murmurs, rubs, or gallops. LUNGS: Clear to auscultation bilaterally with no crackles or wheezes. ABD: Soft, non tender, non distended. PSYCH: Good eye contact, speech is not pressured. Const: Vital Signs, click to edit/add: Vital Signs - 24 hr 07/05/23 20:12 Temperature 98.1 F Pulse Rate [Pulse Oximeter] 73 Respiratory Rate 18 Blood Pressure [Ri ght Upper Arm] 181/76 H Pulse Oximetry 98 Oxygen Delivery Me thod Room Air Course Course ED Course: Patient seen examined. Labs reviewed. Vital Signs Vital signs: Initial Vital Signs Temperature 98.1 F 07/05/23 20:12 Temperature Source Temporal Artery Scan 07/05/23 20:12 Pulse Rate 73 07/05/23 20:12 Respiratory Rate 18 07/05/23 20:12 Blood Pressure 181/76 H 07/05/23 20:12 Blood Pressure Mean 111 H 07/05/23 20:12 Blood Pressure Position Sitting 07/05/23 20:12 Pulse Oximetry 98 07/05/23 20:12 Oxygen Delivery Method Room Air 07/05/23 20:12 Vital Signs Temperature 98.1 F 07/05/23 20:12 Pulse Rate 73 07/05/23 20:12 Respiratory Rate 18 07/05/23 20:12 Blood Pressure 181/76 H 07/05/23 20:12 Pulse Oximetry 98 07/05/23 20:12 Oxygen Delivery Method Room Air 07/05/23 20:12 Temperature 98.1 F 07/05/23 20:12 Pulse Rate 73 07/05/23 20:12 Respiratory Rate 18 07/05/23 20:12 Blood Pressure 181/76 H 07/05/23 20:12 Pulse Oximetry 98 07/05/23 20:12 Oxygen Delivery Method Room Air 07/05/23 20:12 MDM - Male Genitourinary MDM Narrative Medical decision making narrative: Patient is a 72-year-old gentleman who comes in today with urinary symptoms of urinary frequency and dysuria. Workup is unremarkable. Patient has had a significant amount of radiation to his pelvis. I did treat him with Pyridium and recommend close outpatient follow-up. Patient is my primary care patient will see him back in the office is coming week. Patient also has urology referral done in [place] in the next 3-4 days. Differential Diagnosis Differential diagnosis: Likely urinary tract infection, priapism, urethritis, epididymitis, genital herpes simplex, prostatitis, acute retention of urine and inguinal hernia Lab Data Labs: Lab Results 07/05/23 07/05/23 Range/Units 20:28 20:38 WBC 4.84 (4.50-11.00) K/uL RBC 3.73 L (4.30-5.90) m/uL Hgb 10.7 L (13.5-17.5) gm/dL Hct 33.4 L (37.0-53.0) % MCV 90 (80-100) fL MCH 29 (26-34) pg MCHC 32 (32-36) gm/dL RDW Coeff of [place] 13.5 (11.5-15.5) % Plt Count 198 (140-440) K/uL Neut % (Auto) 75.9 H (42.0-72.0) % Lymph % (Auto) 10.7 L (20-44) % [place] % (Auto) 7.2 (0.0-11.0) % Eos % (Auto) 5.6 (0.0-7.0) % Baso % (Auto) 0.4 (0.0-3.0) % Neut # (Auto) 3.70 (1.7-7.0) K/uL Lymph # (Auto) 0.50 L (0.90-2.90) K/uL [place] # (Auto) 0.30 (0.00-0.90) K/UL Eos # (Auto) 0.27 (0.00-0.50) K/uL Baso # (Auto) 0.02 (0.00-0.30) K/uL Abs Immat Gran (auto) 0.01 (0.00-0.30) K/uL Imm/Tot Granulo (auto) 0.2 % Sodium 139 (135-149) mmol/L Potassium 4.0 (3.6-5.1) mmol/L Chloride 102 (96-114) mmol/L Carbon Dioxide 30 (20-32) mmol/L Anion Gap 7 (7-15) mEq/L BUN 30 (7-30) mg/dL Creatinine 1.3 (0.5-1.5) mg/dL Estimated Creat Clear 55.51 Estimated GFR 59 ml/min Glucose 126 H (60-115) mg/dL Calcium 9.2 (8.4-10.6) mg/dL Urine Color Yellow (Yellow) Urine Appearance Clear (Clear) Urine pH 6.0 (5.0-8.5) Ur Specific [place] 1.025 (1.000-1.030) Urine Protein 2+ A (Negative) Urine Glucose (UA) Negative (Negative) Urine Ketones Negative (Negative) Urine Blood 2+ A (Negative) Urine Nitrite Negative (Negative) Urine Bilirubin Negative (Negative) Urine Urobilinogen 0.2 (0.2-1.0) Ur Leukocyte Esterase Negative (Negative) Urine RBC 2-5 A (0-2) Urine WBC 0-2 (0-5) Ur Squamous Epith Cells None (None-Few) Urine Bacteria None (None) Discharge Plan Discharge Clinical Impression: Cystitis Condition: Stable Additional Instructions: Pyridium as directed Hydration Follow-up with urology/Dr. Castelan next week Activity Level: No Restrictions Discharge Diet: Regular Prescriptions: No Action abiraterone 250 mg tablet 1,000 mg PO DAILY Rx Instructions: must be taken on empty stomach, at least 1 hr before or 2 hrs after a meal/food potassium chloride [Klor-Con M20] 20 mEq tablet,ER particles/crystals 20 meq PO BID metoprolol succinate [Toprol XL] 100 mg tablet extended release 24 hr 100 mg PO DAILY Qty: 90 3RF metformin 500 mg tablet extended release 24hr 1,500 mg PO BID Vitron-C 65 mg iron- 125 mg tablet,delayed release (DR/EC) 1 tab PO .every other day (DME) oxygen-air delivery systems Device See Rx Instructions .ROUTE Rx Instructions: As directed atorvastatin [Lipitor] 40 mg tablet 40 mg PO HS amlodipine 2.5 mg tablet 2.5 mg PO DAILY Hold Instructions: Resume on 09/05/22. Check BP daily - if more than 2 days with BP >150/80, restart Amlodipine losartan 25 mg tablet 25 mg PO DAILY nitroglycerin [Nitrostat] 0.4 mg tablet, sublingual 0.4 mg sublingual Q5M PRN Rx Instructions: do not exceed 3 doses per episode clotrimazole-betamethasone 1-0.05 % cream 1 applic topical BID Qty: 45 2RF tamsulosin 0.4 mg capsule 0.4 mg PO QHS Qty: 30 3RF clindamycin phosphate 1 % lotion 1 applic topical BID Qty: 60 3RF Follow Up/Referrals: Bart Castelan MD [Primary Care Provider] - Stand Alone Forms: [employer] Info Instructions
== END 2023-07-05 21:36 | disposition home or self-care (01) ==
PROVIDERS: Emergency Provider Internal Medicine; PCP Internal Medicine
DX: R31.9 Hematuria, unspecified (principal)
CPT/HCPCS: 36415; 51798; 80048; 81003; 81015; 85025; 99283

== ENCOUNTER 2023-11-19 09:30 | Outpatient (RCR) | payer MEDICARE, BC, SELFPAY | END 2024-03-18 23:59 | disposition home or self-care (01) | PROVIDERS: PCP Internal Medicine; Visit Provider Physical Medicine & Rehabilitation | DX: R53.81 Other malaise (principal); R26.81 Unsteadiness on feet; Z51.89 Encounter for other specified aftercare | CPT/HCPCS: 97110; 97162; 97535 ==

== ENCOUNTER 2024-02-13 07:30 | Outpatient (CLI) | payer MEDICARE, BC, SELFPAY ==
--- OUTSIDE RECORDS SUMMARY | 2024-02-17 20:40 | XMS_ITS | Referral Summary ---
Author Organization [facility] Address [address] [place] [address] Care Team Providers Care Senior Biostatistician/Group Leader Name Role Phone Elsewhere, Pcp Primary Care Provider Unavailabl e Source Comments Patient records contain information from all sites at [facility]. For routine questions regarding patient records, call [phone] during business hours, M-F 8:00 AM - 5:00 PM Central Time. Record requests for emergency care only can be directed to [phone] at any time.[facility] Encounters Date Type Department Care Team Description 02/07/2024 Clinical Communication Department of Radiation Oncology in [place], [place] [address] [place] [phone] Jese Zepeda, TAMIA, C.N.P., D.N.P. 02/06/2024 Clinical Communication Division of Hematology in [place], [place] [address] [place] [phone] Jannie Jaquez M.D. 02/06/2024 Orders Only Division of Hematology in [place], [place] [address] [place] [phone] Jannie Jaquez M.D. 02/05/2024 5:51 PM CDT - 02/05/2024 11:59 PM CDT Hospital Encounter Department of Radiology, [facility], in [place], [place] [address] [place] [address] Jannie Jaquez M.D. Primary Malignant Neoplasm Of Prostate (HCC) Discharge Disposition: Home or Self Care 02/04/2024 9:55 AM CDT Ancillary Procedure Department of Gastroenterology 02/04/2024 8:27 AM CDT - 02/04/2024 11:59 PM CDT Hospital Encounter Division of Gastroenterology in [place], [place] [address] [place] [phone] Jannie Jaquez M.D. Primary Malignant Neoplasm Of Prostate (HCC) Discharge Disposition: Home or Self Care 01/23/2024 Clinical Communication Department of Oncology in [place], [place] [address] [place] [phone] Jannie Jaquez M.D. 01/23/2024 Clinical Communication Division of Gastroenterology in [place], [place] [address] [place] [phone] Rom Gonsalves M.D. 01/21/2024 1:30 PM CDT Office Visit Division of Hematology in [address] [phone] Jannie Jaquez M.D. Primary Malignant Neoplasm Of Prostate (HCC) (Primary Dx); Dysphagia; Failure Renal Acute (Acute Kidney Injury) (HCC) 01/21/2024 9:30 AM CDT Office Visit Department of Ophthalmology in [place], [place] [address] [place] [phone] Maria T Vázquez M.D. Spastic Entropion Left Lower Eyelid (Primary Dx) 01/20/2024 Orders Only Department of Oncology in [address] [phone] Rissa Norton, Pharm.D., M.S., R.Ph., BCOP Primary Malignant Neoplasm Of Prostate (HCC) (Primary Dx) 01/20/2024 8:27 AM CDT - 01/20/2024 11:59 PM CDT Hospital Encounter Department of Laboratory Medicine in [address] [phone] Higinio Kelly M.D. Primary Malignant Neoplasm Of Prostate (HCC); Anemia Discharge Disposition: Home or Self Care 01/17/2024 Clinical Communication Department of Urology in [place], [place] [address] [place] [phone] Delta Renteria M.D. More Catheter 12/09/2023 Clinical Communication Department of Urology in [place], [place] [address] [place] [address] Delta Renteria M.D. Blue Dialator 11/20/2023 1:15 PM CONTRACT PARALEGAL Office Visit Department of Ophthalmology in [place], [place] [address] [place] [address] Michael Prather M.D. Entropion Left (Primary Dx) from Last 3 Months Allergies Active Allergy Reactions Criticality Noted Date Comments Adhesive Rash 11/15/2015 Use paper tape Ibuprofen GI bleeding 02/09/2021 Nsaids (Non-Steroidal Anti-Inflammatory Drug) Other (see comments) Low 07/16/2023 Medications Medication Sig Dispensed Refills Start Date End Date Status amLODIPine (NORVASC) 2.5 mg tablet Take 2.5 mg by mouth every morning. 2 06/15/2019 Active metoprolol succinate (TOPROL-XL) 100 mg 24 hr tablet Take 100 mg by mouth every morning. Active atorvastatin (LIPITOR) 40 mg tablet Take 1 tablet by mouth at bedtime. 09/28/2016 Active clindamycin (CLEOCIN T) 1 % lotion Apply 1 Application topically once as needed (rosacea). Active fexofenadine (CRISTINA) 180 mg tablet Take 180 mg by mouth daily as needed for allergies. Active clotrimazole-be tamethasone (LOTRISONE) 1-0.05 % cream 1 Application as needed. 09/07/2020 Active losartan (COZAAR) 25 mg tablet Take 1 tablet by mouth every morning. 12/05/2020 Active nitroglycerin (NITROSTAT) 0.[address] 0.4 mg under the tongue every 5 (five) minutes as needed. 09/08/2021 Active tamsulosin (FLOMAX) 0.4 mg 24 hr capsule Take 1 capsule (0.4 mg total) by mouth daily. 60 capsule 1 01/12/2022 Active Additional Information Patient taking differently:0.4 mg oralDaily at bedtime, Reported on 08/13/2023 cyanocobalamin (VITAMIN B12) 1,000 mcg tablet Take 1,000 mcg by mouth daily. Active DME Urological suppliesIndicat ions:Retention Urinary DME Order 1 Unspecified 04/17/2023 Active iron,carbonyl-v itamin C (VITRON-C) 65 mg iron- [address] tablet Take 65 mg of iron by mouth every other day. Do not crush or chew. Active calcium citrate-vitamin D3 (CITRACAL+D) 315 mg-5 mcg (200 Unit) per tablet Take 2 tablets by mouth 2 (two) times a day with meals. Active Valerie 128 5 % ophthalmic ointment Apply to left eye. 09/06/2023 Active psyllium (METAMUCIL) 0.52 gram capsule Take 0.52 g by mouth 2 (two) times a day. Active raNITIdine (ZANTAC) 150 mg tablet Take 150 mg by mouth daily as needed for heartburn. 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 08/16/2023 Unsteadiness Gait Disorder Non Orthopedic 2022 Radiation Therapy Proctitis 12/05/2022 Injury Radiation Therapy Initial 12/05/2022 Primary Malignant Neoplasm Of Prostate 2 Myocardial Infarction Old 09/11/2021 Smoking Tobacco Use Personal History 09/11/2021 Diabetes Mellitus Type 2 Without Complication Feeling Of Incomplete Bladder Emptying 1 Regurgitation Aortic 07/20/2019 Apnea Sleep Obstructive 07/20/2019 Hypertension Essential Primary 12/02/2015 Hyperlipidemia 12/02/2015 Coronary Artery 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 11/03/2015 Resolved Problems Problem Noted Date Diagnosed Date Resolved Date Elevated Prostate-Specific Antigen 08/23/2021 08/16/2023 Nodule Prostate 08/23/2021 08/16/2023 Non-ST Elevation Myocardial Infarction 07/20/2019 09/11/2021 Impaired Fasting Glucose 07/20/2019 Anemia 07/20/2019 09/11/2021 Hypertension Borderline 07/20/201908/17 Immunizations Name Administration Dates Next Due Influenza Split 06/16/2015 Social History Tobacco Use Types Packs/Day Years Used Date Smoking Tobacco: Former Cigarettes 2 11.8 0 09/16/1979 - 07/17/1991 Smokeless Tobacco: Former Snuff Quit: 07/17/1991 Tobacco Cessation:Counseling Given: Not Answered Comments:was a heavy smoker. quit cold turkey from all tobacco 1990 Alcohol Use Standard Drinks/Week Comments Not Currently 0 (1 standard drink = 0.6 oz pur e alcohol) quit drinking 2010 [facility] [employer] Answer Date Recorded In the past 12 months has e electric, gas, oil, or water company threatened to shut off services in your home? No 01/16/2024 Humiliation, Afraid, Rape, and Kick questionnair e Answer Date Recorded Within the last year, have y ou been afraid of your partner or ex-partner? No 02/24/2023 Within the last year, have y ou been humiliated or emotionally abused in other ways by your partner or ex-partner? No Within the last year, have y ou been kicked, hit, slapped, or otherwise physically hurt by your partner or ex-partner? No 02/24/2023 Within the last year, have y ou been raped or forced to have any kind of sexual activity by your partner or ex-partner? No 02/24/2023 Social Connection and Isolation Panel [NHANES] A nswer Date Recorded In a typical week, how many times do you talk on the phone with family, friends, or neighbors? Once a week 12/22/19 How often do you get togethe r with friends or relatives? Never 12/21/2022 How often do you attend chur ch or jew services? 1 to 4 times per year 12/21/2022 Do you belong to any clubs o r organizations such as gnosticist groups, unions, fraternal or athletic groups, or school groups? No 12/21/2022 How often do you attend meet ings of the clubs or organizations you belong to? Never 12/21/2022 Are you , , di vorced, , never , or living with a partner? 12/21/2022 AUDIT-C Answer Date Recorded Q1: How often do you have a drink containing alc ohol? Never 12/21/2022 Average Number of Drinks Not on file 023 Frequency of Binge Drinking Not on file 03/2023 Overall Financial Resource Strain (CARDIA) Answe r Date Recorded How hard is it for you to pa y for the very basics like food, housing, medical care, and heating? Not hard at all 02/24/2023 [facility] - Occupational Stress Questionnaire Answer Date Recorded Do you feel stress - tense, restless, nervous, or anxious, or unable to sleep at night because your mind is troubled all the time - these days? Not at all 12/21/2022 Exercise Vital Sign Answer Date Recorde d On average, how many days pe r week do you engage in moderate to strenuous exercise (like a brisk walk)? 3 days 01/16/2024 On average, how many minutes do you engage in exercise at this level? 10 min 01/16/2024 Hunger Vital Sign Answer Date Recorded Within the past 12 months, y ou worried that your food would run out before you got the money to buy more. Never true 01/16/20 24 Within the past 12 months, t he food you bought just didn't last and you didn't have money to get more. Never true 01/16/2024 PRAPARE - Transportation Answer Date Re corded In the past 12 months, has l ack of transportation kept you from medical appointments or from getting medications? No 10/2023 In the past 12 months, has l ack of transportation kept you from meetings, work, or from getting things needed for daily living? No 01/16/2024 Nutrition Answer Date Recorded On average, how many serving s of fruits and vegetables do you eat per day (serving size is equal to 1 cup or approximately the size of a tennis ball)? 0-2 01/16/2024 Dental Answer Date Recorded Dental: Regular Dentist Yes 09/05/20 Employment Answer Date Recorded Employment status Retired 01/16/2024 Housing Stability Answer Date Recorded What is your living situation today? I have a [facility] place to live 01/16/2024 Education Answer Date Recorded What is the highest level of school you have completed or the highest degree you have received? Some college, no degree 12/21/2022 Sex and Gender Information Value Date Recorded Sex Assigned at Male 09/05/2021 9:48 AM CONTRACT PARALEGAL Gender Identity Male 08/31/2021 8:54 AM CONTRACT PARALEGAL Sexual Orientation Straight 08/31/2021 8: 54 AM CONTRACT PARALEGAL Last Filed Vital Signs Vital Sign Reading Time Taken Comments Blood Pressure 146/65 02/04/2024 10:58 AM CDT Pulse 64 02/04/2024 11:08 AM CDT Temperature 36.7 ??C (98.1 ??F) 02/04/2024 1 0:50 AM CDT Respiratory Rate 20 02/04/2024 11:0 8 AM CDT Oxygen Saturation 98% 02/04/2024 11: 08 AM CDT Inhaled Oxygen Concentration - - Weight 98.3 kg (216 lb 11.4 oz) 02/04/2024 8:47 AM CDT Height 175.9 cm (5' 9.25) 02/04/2024 8:47 AM CD T Body Mass Index 31.77 02/04/2024 8:47 AM CDT Plan of Treatment Upcoming Encounters Date Type Department Care Team (Late st Contact Info) Description 02/20/2024 9:30 AM CDT Comprehensive Visit Department of Neurology in [address] [phone] Jannie Jaquez M.D. [address] [place] [phone] Renetta Kramer M.A., CCC-TRAVELING ACCOUNTANT [address] [place] [address] [phone] 02/20/2024 10:00 AM CDT Appointment Department of Radiology, [facility], in [address] [phone] Jannie Jaquez M.D. [address] [place] [phone] Renetta Kramer M.A., CCC-TRAVELING ACCOUNTANT [address] [place] [phone] 02/20/2024 10:30 AM CDT Clinical Support Department of Neurology in [place], [place] [address] [place] [phone] Jannie Jaquez M.D. [address] [place] [phone] Renetta Kramer M.A., [facility]-TRAVELING ACCOUNTANT [address] [place] [phone] Medical Devices Implanted Type Area Security Shift Supervisor Device Identifier Shelf Expiration Date Model / Serial / Lot Premier 3.0 X 12 - [id number] Implanted:Qty: 1 on 10/25/2015 Cardiac Stent [employer] Description:Device Manufactu rer - [employer]. Device Status Text - [id number]. Premier 3.5 X 24 - [id number] Implanted:Qty: 1 on 10/25/2015 Cardiac Stent [employer] Description:Device Manufactu rer - [employer]. Device Status Text - [id number]. Premier 4.0 X 8 - [id number] Implanted:Qty: 1 on 10/25/2015 Cardiac Stent [employer] Description:Device Manufactu rer - [employer]. Device Status Text - [id number]. Marker Tissue [employer] Kv 1x5 - [id number] Implanted:Qty: 4 on 12/18/2021 by Grabiel Boyce M.D. at [facility] Imaging Marker Circumfere ntial: Prostate [facility] [id number] 06/08/2026 [id number] / / [id number] Ocular Lens Ocular Lens Right: Eye Procedures Procedure Name Priority Date/Time Associated Diagnosis Comments US KIDNEYS BILATERAL WITH BLADDER RAD - Routine (most inpatients and all outpatients) 02/05/2024 6:22 PM CDT Primary Malignant Neoplasm Of Prostate (HCC) FERRITIN, S Routine 02/05/2024 5:04 PM CDT Primary Malignant Neoplasm Of Prostate (HCC) BASIC METABOLIC PANEL, S/P Routine 02/05/2024 5:04 PM CDT Primary Malignant Neoplasm Of Prostate (HCC) DIPSTICK, U Routine 02/05/2024 5:01 PM CDT MICROSCOPIC AUTOMATED Routine 02/05/2024 5:01 PM CDT PH, U Routine 02/05/2024 5:01 PM CDT OSMOLALITY, U Routine 02/05/2024 5:01 PM CDT PROTEIN/CREATININE RATIO, RANDOM, URINE Routine 02/05/2024 5:01 PM CDT Primary Malignant Neoplasm Of Prostate (HCC) URINALYSIS WITH MICROSCOPIC Routine 02/05/2024 5:01 PM CDT Primary Malignant Neoplasm Of Prostate (HCC) SURGICAL PATHOLOGY Routine 02/04/2024 10:18 AM CDT GASTROENTEROLOGY IMAGE EXAM Routine 02/04/2024 9:55 AM CDT UPPER GI ENDOSCOPY Routine 02/04/2024 9: 52 AM CDT Primary Malignant Neoplasm Of Prostate (HCC) EGD (ESOPHAGEALGASTRODUODE NOSCOPY) Routine 02/04/2024 9:52 AM CDT Primary Malignant Neoplasm Of Prostate (HCC) BASIC METABOLIC PANEL, S/P Routine 01/20/2024 8:34 AM CDT Primary Malignant Neoplasm Of Prostate (HCC) Anemia CBC WITH DIFFERENTIAL, B Routine 01/20/2024 8:34 AM CDT Primary Malignant Neoplasm Of Prostate (HCC) Anemia PROSTATE-SPECIFIC AG (PSA) DIAGNOSTIC, S Routine 01/20/2024 8:34 AM CDT Primary Malignant Neoplasm Of Prostate (HCC) Anemia HEMOGLOBIN A1C, B Routine 08/16/2023 11:19 AM CONTRACT PARALEGAL Symptom Urinary ALBUMIN, RANDOM, U Routine 07/28/2021 9: 26 AM CONTRACT PARALEGAL Diabetes Mellitus Type 2 (HCC) LIPID PANEL, S Routine 07/20/2019 8:36 AM CONTRACT PARALEGAL Stenosis Aortic Valve Acquired CT ABDOMEN PELVIS WITH IV CONTRAST RAD - Routine (most inpatients and all outpatients) 11/05/2012 1:37 PM CONTRACT PARALEGAL from Last 3 Months or Most Recently Relevant to Health Maintenance Results * US Kidneys Bilateral with Bladder (02/05/2024 6:22 PM CDT) Anatomical Region Laterality Modality Abdomen, Renal, Ultrasound R ST LOS, Ultrasound ARZ LOS, Ultrasound FLA LOS Bilateral Ultrasound Impressions 02/06/2024 8:32 AM CDT Benign-appearing renal cysts. Otherwise, the kidneys have a normal sonographic appearance. Specifically, no hydronephrosis. Narrative 02/06/2024 8:32 AM CDT EXAM: US KIDNEYS BILATERAL WITH BLADDER COMPARISON: CT urogram 03/15/2023 FINDINGS: Right kidney: 11.4 cm. Cortical thickness: Normal. Parenchymal echogenicity: Normal. Collecting system: No hydronephrosis. Masses: 2 benign-appearing cysts noted the largest in the upper portion of the kidney measuring 4 cm in greatest diameter. Left kidney: 11.8 cm. Cortical thickness: Normal. Parenchymal echogenicity: Normal. Collecting system: No hydronephrosis. Masses: Few benign-appearing cysts the largest in the mid to upper portion of the kidney measuring 6.7 cm in greatest diameter. Bladder: Normal appearance. Procedure Note Iesha Kaiser M.D. - 02/06/2024 EXAM: US KIDNEYS BILATERAL WITH BLADDER COMPARISON: CT urogram 03/15/2023 FINDINGS: Right kidney: 11.4 cm. Cortical thickness: Normal. Parenchymal echogenicity: Normal. Collecting system: No hydronephrosis. Masses: 2 benign-appearing cysts noted the largest in the upper portion ofthe kidney measuring 4 cm in greatest diameter. Left kidney: 11.8 cm. Cortical thickness: Normal. Parenchymal echogenicity: Normal. Collecting system: No hydronephrosis. Masses: Few benign-appearing cysts the largest in the mid to upper portionof the kidney measuring 6.7 cm in greatest diameter. Bladder: Normal appearance. IMPRESSION: Benign-appearing renal cysts. Otherwise, the kidneys have a normalsonographic appearance. Specifically, no hydronephrosis. Jannie Jaquez M.D. IMG US PROCEDURES * Ferritin (02/05/2024 5:04 PM CDT) Ferritin, S 204 31 - 409 mcg/L 02/05/2024 6:34 PM CDT DTL Blood (Blood, Venous) 02/05/2024 5:04 PM CDT 02/05/2024 5:23 PM CDT Jannie Jaquez M.D. LAB BLOOD ADD-ON [facility] [address] [place] [address], [facility] [address] [place] [address] * (ABNORMAL) Basic Metabolic Panel (02/05/2024 5:04 PM CDT) Only the most recent of2 resultswithin the time period is included. Pathologist [facility] Potassium, S 4.2 3.6 - 5.2 mmol/L 02/05/2024 5:42 PM CDT DTL Sodium, S 138 135 - 145 mmol/L 02/05/2024 5:42 PM CDT DTL Chloride, S 97(L) 98 - 107 mmol/L 02/05/2024 5:42 PM CDT DTL Bicarbonate, S 26 22 - 29 mmol/L 02/05/2024 5:42 PM CDT DTL Anion Gap 15 7 - 15 02/05/2024 5:42 PM CDT DTL BUN (Blood Urea Nitrogen), S 24 8 - 24 mg/dL 02/05/2024 5:42 PM CDT DTL Creatinine 1.44(H) 0.74 - 1.35 mg/dL 02/05/2024 5:42 PM CDT DTL Estimated GFR (eGFR) 52(L) >=60 mL/min/BSA 02/05/2024 5:42 PM CDT DTL Comment: Estimated GFR calculated using the 2020 CKD_EPI creatinine equation. Calcium, Total, S 9.4 8.8 - 10.2 mg/dL 02/05/2024 5:42 PM CDT DTL Glucose, S 134 70 - 140 mg/dL 02/05/2024 5:42 PM CDT DTL Blood (Blood, Venous) 02/05/2024 5:04 PM CDT 02/05/2024 5:23 PM CDT Jannie Jaquez M.D. LAB BLOOD ADD-ON [facility] [address] [place] [address], [facility] [address] [address] * Dipstick, Urine (02/05/2024 5:01 PM CDT) Pathologist [facility] Hemoglobin, QL, U Negative Negative 02/05/2024 5:36 PM CDT DTL Leukocyte Esterase, U Negative Negative 02/05/2024 5:36 PM CDT DTL Nitrite, U Negative Negative 02/05/2024 5:36 PM CDT DTL Ketone, U Negative Negative mg/dL 02/05/2024 5:36 PM CDT DTL Glucose, U Negative Negative mg/dL 02/05/2024 5:36 PM CDT DTL Urine 02/05/2024 5:01 PM CDT 02/05/2024 5:09 PM CDT Jannie Jaquez M.D. LAB URINE ORDERABL ES Performing Organization Address City/[facility]/ZIP Co de Phone Number [facility] [address] [place] [address], [facility] [address] [address] * Microscopic Automated (02/05/2024 5:01 PM CDT) Microscopy Normal 02/05/2024 5:36 PM CDT DTL RBC None Seen <3 /hpf 02/05/2024 5:36 PM CDT DTL WBC None Seen /hpf 02/05/2024 5:36 PM CDT DTL Comment: ----REFERENCE VALUE---- <4 ??(Males) <11 (Females) Urine 02/05/2024 5:01 PM CDT 02/05/2024 5:09 PM CDT Jannie Jaquez M.D. LAB URINE ORDERABL ES Performing Organization Address City/[facility]/ZIP Co de Phone Number [facility] [address] [place] [address] * pH, Urine (02/05/2024 5:01 PM CDT) pH, U 5.5 4.5 - 8.0 02/05/2024 5:4 6 PM CDT DTL Urine 02/05/2024 5:01 PM CDT 02/05/2024 5:09 PM CDT Jannie Jaquez M.D. LAB URINE ORDERABL ES Performing Organization Address [facility] Co de Phone Number [facility] [address] [place] [address] * (ABNORMAL) Protein/Creatinine Ratio, Random, Urine (02/05/2024 5:01 PM CDT) Protein, Total, Random, U <4 mg/dL 02/05/2024 5:55 PM CDT DTL Creatinine, Random, U 18 16 - 326 mg/dL 02/05/2024 5:55 PM CDT DTL Protein/Creatinine Ratio <0.22(H) <0.18 mg/mg 02/05/2024 5:55 PM CDT DTL Comment: This ratio may not correspond with the reference range because one or both of the values used to calculate the ratio was above or below the quantification limits. Urine (Urine, Midstream) 02/05/2024 5:01 PM CDT 02/05/2024 5:09 PM CDT Jannie Jaquez M.D. LAB URINE ORDERABL ES Performing Organization Address [facility]/ZIP Co de Phone Number [facility] [address] [place] [address], [facility] [address] [place] [address] * (ABNORMAL) Osmolality, Urine (02/05/2024 5:01 PM CDT) Osmolality, U 144(L) 150 - 1150 mOsm/kg 02/05/2024 5:46 PM CDT DTL Urine 02/05/2024 5:01 PM CDT 02/05/2024 5:09 PM CDT Jannie Jaquez M.D. LAB URINE ORDERABL Performing Organization Address [facility] Co de Phone Number [facility] [address] [place] [address], [address] [address] * (ABNORMAL) Urinalysis, with Microscopic: Urine, Midstream (02/05/2024 5:01 PM CDT) Source Urine, Urine, Midstream 02/05/2024 5:09 PM CDT DTL Color, U Yellow 02/05/2024 5:09 PM CDT DTL Clarity, U Clear 02/05/2024 5:09 PM CDT DTL Protein, U <4 <26 mg/dL 02/05/2024 5:55 PM CDT DTL Protein/Osmol ality <0.28 <0.42 ratio 02/05/2024 5:55 PM CDT DTL Predicted 24 HR Protein, U <278(H) <229 mg/24 h 02/05/2024 5:55 PM CDT DTL Predicted Range <875 mg/24 h 02/05/2024 5:55 PM CDT DTL Urine (Urine, Midstream) 02/05/2024 5:01 PM CDT 02/05/2024 5:09 PM CDT Jannie Jaquez M.D. LAB URINE ORDERABL ES [facility] [address] [place] [address], [facility] DTL [facility] [address] [place] [address] * Surgical Pathology (02/04/2024 10:18 AM CDT) 02/05/2024 11:06 AM CDT DTL Report electronically signed by Barbie Ovalle M.D. I verify that I have examined all relevant slides/materials for the specimen(s) and rendered or confirmed the diagnosis. 02/05/2024 11:06 AM CDT DTL Gross Description A: Received in formalin labeled with the patient's name, medical record number, and stomach-antrum, body of stomach, incisura are fivepale min-pink irregular soft tissues, ranging from 0.2-0.6 cm in greatest dimension. Specimens are submitted en toto in cassette A1.Grossed by MARISOL. B: Received in formalin labeled with the patient's name, medical record number, and esophagus-lower third, middle third are threetranslucent-p ink irregular soft tissues, ranging from 0.3-0.5 cm in greatest dimension. Specimens are submitted en toto in cassette B1.Grossed by MARISOL. 02/05/2024 11:06 AM CDT DTL Addendum H pylori immunostain (block A1) is negative. Signed by Barbie Ovalle M.D. 02/06/2024 10:21 AM This test was developed using an analyte specific reagent. Its performance characteristics were determined by [facility] in a manner consistent with CLIA requirements. This test has not been cleared or approved by the U.S. Food and Drug Administration. 02/06/2024 10:21 AM CDT DTL Comment:REVISED RESULTS Interpretation FINAL DIAGNOSIS A. Stomach, Antrum, Body of stomach, Incisura, endoscopic biopsy: ??Antral fundic transition zone mucosa and fundic mucosa with mild chronic gastritis. ??There is no evidence of intestinal metaplasia or dysplasia. ??An H.pylori immunostain is pending and will be reported as an addendum. B. Esophagus, Lower third esophagus, Middle third esophagus, endoscopic biopsy: ??Squamous esophageal mucosa without diagnostic abnormality. ??There is no evidence of intraepithelial eosinophils. Digital imaging was used in the diagnostic assessment of this case. 02/06/2024 10:21 AM CDT DTL Biopsy (Stomach) 02/04/2024 10:18 AM CDT Biopsy (Esophagus) 02/04/2024 10:20 AM CDT Ravindra Gentile M.D. LAB SURG PATH ORDER DANYA Performing Organization Address [facility] Co de Phone Number [facility] [address] [place] [address], [facility] DTL [address] [facility] [address] [place] [address] * Stomach, Pylorus Upper GI endoscopy-Gastroenterology Image Exam (02/04/2024 9:55 AM CDT) 02/04/2024 9:52 AM CDT Narrative [facility] - 02/04/2024 10:31 AM CDT This order has been created and auto-finalized to support the import of images acquired without order. The clinical documentation to support these images can be found on the encounter that produced images. Provider Not In System IMG NON RAD IMAGI NG PROCEDURES Performing Organization Address [facility] Co de Phone Number [facility] NA * Upper GI Endoscopy (02/04/2024 9:52 AM CDT) 02/04/2024 9:52 AM CDT Impressions [facility] - 02/04/2024 10:28 AM CDT Post-op Diagnoses: ? - Z-line regular, 40 cm from the incisors. ? - Tortuous esophagus. ? - Non-bleeding gastric ulcer with no stigmata of bleeding. Biopsied. ? - Normal examined duodenum. ? - The examination was otherwise normal. ? - Biopsies were taken with a cold forceps for evaluation of eosinophilic ? esophagitis. Narrative [facility] - 02/04/2024 10:28 AM CDT Juan Antonio 9 GI GI Patient Name: Bora Rider Date of : 1950 Age: 73 Procedure Date: 02/04/2024 Procedure: ? Upper GI endoscopy Providers: ? Ravindra Gentile MD Referring Provider: ?Jannie Jaquez Pre-op Diagnoses: ?Dysphagia Recommendation: ? - Patient has a contact number available for emergencies. The signs and ? symptoms of potential delayed complications were discussed with the ? patient. Return to normal activities tomorrow. Written discharge ? instructions were provided to the patient. ? - Return to referring physician. ? - No ibuprofen, naproxen, or other non-steroidal anti-inflammatory drugs. ? - PATHOLOGY/MICROBIOLOGY FOLLOW-UP: The ordering provider is responsible ? for reviewing results from specimens obtained during this endoscopic ? procedure and communicating the findings to the patient. If guidance is ? needed for interpreting endoscopic findings or pathology results, please ? consider a gastroenterology e-consult. Findings: ? The Z-line was regular and was found 40 cm from the incisors. ? The distal esophagus was mildly tortuous. Biopsies were obtained from ? the proximal and distal esophagus with cold forceps for histology of ? suspected eosinophilic esophagitis. ? One non-bleeding superficial gastric ulcer with no stigmata of bleeding ? was found at the pylorus. The lesion was 6 mm in largest dimension. ? Biopsies were taken with a cold forceps for Helicobacter pylori testing. ? The examined duodenum was normal. ? The exam was otherwise without abnormality. Procedural Details: ? The patient was seen, evaluated, history reviewed, airway and heart-lung ? exams were performed by licensed provider and were satisfactory for ? planned level of sedation care. ? The risks, benefits and alternatives for the procedure and sedation were ? discussed and informed consent was obtained. A procedural pause was ? conducted in the presence of assisting personnel to verify the correct ? patient identity and procedure to be performed. Throughout the ? procedure, the patient's blood pressure, pulse, and oxygen saturations ? were monitored continuously. The Gastroscope was introduced under direct ? vision through the mouth, and advanced to the second part of duodenum. ? The upper GI endoscopy was accomplished with ease. The patient tolerated ? the procedure well. Estimated Blood Loss: ?Estimated blood loss was minimal. Complications: ? No immediate complications. Sedation: ? Moderate (conscious) sedation was administered by the nurse and ? supervised by the endoscopist. The patient's oxygen saturation, heart ? rate, blood pressure and response to care were monitored. Total ? physician intraservice time was 15 minutes. Attending Participation: I personally performed the entire procedure. Ravindra Gentile MD 02/04/2024 10:28:38 AM This report has been signed electronically. Number of Addenda: 0 Jannie Jaquez M.D. GI PROCEDURE ORDER DANYA Performing Organization Address City/State/[facility] Co sd Phone Number [facility] NA * (ABNORMAL) CBC with Differential, Blood (01/20/2024 8:34 AM CDT) Hemoglobin 11.8(L) 13.2 - 16.6 g/dL 01/20/2024 8:41 AM CDT CNFL Hematocrit 35.7(L) 38.3 - 48.6 % 01/20/2024 8:41 AM CDT CNFL Erythrocytes 3.90(L) 4.35 - 5.65 x10(12)/L 01/20/2024 8:41 AM CDT CNFL MCV 91.5 78.2 - 97.9 fL 01/20/2024 8:41 AM CDT CNFL RBC Distrib Width 13.4 11.8 - 14.5 % 01/20/2024 8:41 AM CDT CNFL Platelet Count 164 135 - 317 x10(9)/L 01/20/2024 8:41 AM CDT CNFL Leukocytes 4.5 3.4 - 9.6 x10(9)/L 01/20/2024 8:41 AM CDT CNFL Neutrophils 3.21 1.56 - 6.45 x10(9)/L 01/20/2024 8:41 AM CDT CNFL Lymphocytes 0.72(L) 0.95 - 3.07 x10(9)/L 01/20/2024 8:41 AM CDT CNFL Monocytes 0.29 0.26 - 0.81 x10(9)/L 01/20/2024 8:41 AM CDT CNFL Eosinophils 0.27 0.03 - 0.48 x10(9)/L 01/20/2024 8:41 AM CDT CNFL Basophils <0.04 0.01 - 0.08 x10(9)/L 01/20/2024 8:41 AM CDT CNFL Blood (Blood, Venous) 01/20/2024 8:34 AM CDT 01/20/2024 8:36 AM CDT Higinio Kelly M.D. LAB BLOOD ADD-ON Performing Organization Address [facility]/State/[facility] Co de Phone Number [facility] [address] [place] [id number], [facility] in [address] [address] * PSA (Prostate-Specific Antigen), Diagnostic (01/20/2024 8:34 AM CDT) Prostate-Specific Ag <0.10 <=6.5 ng/mL 01/20/2024 1:30 PM CDT [facility] Comment: ----ADDITIONAL INFORMATION---- The testing method is an electrochemiluminescence assay manufactured by [employer] and performed on the Modular or [employer] system. Values obtained with different assay methods or kits may be different and cannot be used interchangeably. Test results cannot be interpreted as absolute evidence for the presence or absence of malignant disease. Blood (Blood, Venous) 01/20/2024 8:34 AM CDT 01/20/2024 12:53 PM CDT Higinio Kelly M.D. LAB BLOOD ADD-ON Performing Organization Address City/[facility]/ZIP Co de Phone Number [facility] [address] [place] [address], [facility] RDWG [facility] [place] [address] [place] [address] * (ABNORMAL) Hemoglobin A1c (08/16/2023 11:19 AM CONTRACT [employer]) Hemoglobin A1c, B 5.9(H) 4.0 - 5.6 % 08/16/2023 11:58 AM [employer] DTL Comment: Hemoglobin A1c values of 5.7-6.4 percent indicate an increased risk for developing diabetes mellitus. In diabetic patients, HbA1c goals should be discussed with healthcare provider. Blood (Blood, Venous) 08/16/2023 11:19 AM [employer] 08/16/2023 11:41 AM [employer] Jolynn Don M.D. LAB BLOOD ADD-O N Performing Organization Address City/[facility]/ZIP Co de Phone Number [facility] [address] [place] [address], [facility] [address] [place] [address] * (ABNORMAL) Albumin, Random, Urine (07/28/2021 9:26 AM CONTRACT [employer]) Albumin, Random, U 38.8 mg/L 2020 11:26 AM [employer] DTL Comment: ----ADDITIONAL INFORMATION---- This test has been modified from the soda jerker's instructions. Its performance characteristics were determined by [facility] in a manner consistent with CLIA requirements. This test has not been cleared or approved by the U.S. Food and Drug Administration. Creatinine 132 mg/dL 07/28/2021 10:50 AM [employer] DTL Albumin/Creatinine Ratio 29(H) <17 mg/g 07/28/2021 11:26 AM [employer] DTL Urine (Urine, Clean Catch) 07/28/2021 9:26 AM CONTRACT [employer] 07/28/2021 10:08 AM [employer] Nicolas Mazariegos M.D. LAB URINE ORDERABLE S Performing Organization Address [facility] Co de Phone Number [facility] [address] [place], [place] [phone] [place] [address] [facility] [address] [place] [address] * (ABNORMAL) Lipid Panel (07/20/2019 8:36 AM CONTRACT [employer]) Pathologist [facility] Cholesterol, Total 134 mg/dL 2018 10:34 AM [employer] DTL Comment: ----REFERENCE VALUE---- Desirable: < 200 Borderline high: 200 - 239 High: > or = 240 Triglycerides 158(H) mg/dL 07/20/2019 10:34 AM [employer] DTL Comment: ----REFERENCE VALUE---- Normal: <150 Borderline high: 150-199 High: 200-499 Very high: > or =500 Cholesterol, HDL, S 43 >=40 mg/dL 07/20/2019 10:34 AM [employer] DTL Calculated LDL 59 mg/dL 07/20/2019 10:34 AM [employer] DTL Comment: ----REFERENCE VALUE---- Desirable: <100 Above Desirable: 100-129 Borderline high: 130-159 High: 160-189 Very high: > or =190 Cholesterol, Non-HDL, Calculated 91 mg/dL 07/20/2019 10:34 AM [employer] DTL Comment: ----REFERENCE VALUE---- Desirable: <130 Above Desirable: 130-159 Borderline high: 160-189 High: 190-219 Very high: > or =220 Blood (Blood, Venous) 07/20/2019 8:36 AM [employer] 07/20/2019 8:58 AM CONTRACT [employer] Larry Qiu M.D. LAB BLOOD ADD-ON Performing Organization Address City/[facility]/ZIP Co de Phone Number [facility] [address] [place] [address], [place] [facility] [address] [place] [address] from Last 3 Months or Most Recently Relevant to Health Maintenance Care Teams Senior Biostatistician/Group Leader Relationship Specialty Start Date End Date Elsewhere, Pcp PCP - General Internal Medicine 09/06/21
--- OUTSIDE RECORDS SUMMARY | 2024-02-17 20:40 | XMS_ITS | Clinical Summary ---
Author Organization [facility] Address [address] [place] [address] Care Team Providers Care Donor Specialist Name Role Phone Elsewhere, Pcp Primary Care Provider Unavailabl e Source Comments Patient records contain information from all sites at [facility]. For routine questions regarding patient records, call [phone] during business hours, M-F 8:00 AM - 5:00 PM Central Time. Record requests for emergency care only can be directed to [phone] at any time.[facility] Allergies Active Allergy Reactions Criticality Noted Date [...] 07/20/2019 Anemia 07/20/2019 09/11/2021 Hypertension Borderline 07/20/201908/17 Encounters Date Type Department Care Team Description 02/07/2024 Clinical Communication Department of Radiation Oncology in [place], [place] [address] [place] [phone] Jese Zepeda APRN, C.N.P., D.N.P. 02/06/2024 Clinical Communication Division of Hematology in [address] [phone] Jannie Jaquez M.D. 02/06/2024 Orders Only Division of Hematology in [address] [phone] Jannie Jaquez M.D. 02/05/2024 5:51 PM CDT - 02/05/2024 11:59 PM CDT Hospital Encounter Department of Radiology, [facility], in [place], [place] [address] [place] [phone] Jannie Jaquez M.D. Primary Malignant Neoplasm Of Prostate (HCC) Discharge Disposition: Home or Self Care 02/04/2024 9:55 AM CDT Ancillary Procedure Department of Gastroenterology 02/04/2024 8:27 AM CDT - 02/04/2024 11:59 PM CDT Hospital Encounter Division of Gastroenterology in [place], [place] [address] [place] [phone] Jannie Jaquez M.D. Primary Malignant Neoplasm Of Prostate (HCC) Discharge Disposition: Home or Self Care 01/23/2024 Clinical Communication Department of Oncology in [place], [place] [address] [place] [phone] Jannie Jaquez M.D. 01/23/2024 Clinical Communication Division of Gastroenterology in [address] [phone] Rom Gonsalves M.D. 01/21/2024 1:30 PM CDT Office Visit Division of Hematology in [address] [phone] Jannie Jaquez M.D. Primary Malignant Neoplasm Of Prostate (HCC) (Primary Dx); Dysphagia; Failure Renal Acute (Acute Kidney Injury) (HCC) 01/21/2024 9:30 AM CDT Office Visit Department of Ophthalmology in [address] [phone] Maria T Vázquez M.D. Spastic Entropion Left Lower Eyelid (Primary Dx) 01/20/2024 8:27 AM CDT - 01/20/2024 11:59 PM CDT Hospital Encounter Department of Laboratory Medicine in [address] [phone] Higinio Kelly M.D. Primary Malignant Neoplasm Of Prostate (HCC); Anemia Discharge Disposition: Home or Self Care 01/20/2024 Orders Only Department of Oncology in [address] [phone] Rissa Norton, PharmReinaldoD., M.S., R.Ph., OP Primary Malignant Neoplasm Of Prostate (HCC) (Primary Dx) 01/17/2024 Clinical Communication Department of Urology in [address] [phone] Delta Renteria M.D. More Catheter 12/09/2023 Clinical Communication Department of Urology in [address] [phone] Delta Renteria M.D. Blue Dialator 11/20/2023 1:15 PM TEACHER'S AIDE Office Visit Department of Ophthalmology in [address] [phone] Michael Prather M.D. Entropion Left (Primary Dx) from Last 3 Months Immunizations Name Administration Dates Next Due Influenza Split 06/16/2015 Family History Medical History Relation Name Comments Coronary artery disease Brother 1 Hank sten ting Prostate cancer Brother 1 Hank Alcohol abuse Brother 2 Dudley Liver disease Brother 2 Dudley Rcvd transplan t Prostate cancer Father Waqas Coronary artery disease Mother Kimberly Hyperlipidemia Mother Kimberly Hypertension Mother Kimberly Other cancer Mother Kimberly Cervical Coronary artery disease Sister Sara sten ting Drug abuse Son 1 Jeremias Drug abuse Son 2 Ashwin Relation Name Status Comments Brother 1 Hank Brother 2 Dudley Father Waqas Mother Kimberly Sister Sara Son 1 Jeremias Son 2 Ashwin Social History Tobacco Use Types Packs/Day Years Used Date Smoking Tobacco: Former Cigarettes 2 11.8 0 09/16/1979 - 07/17/1991 Smokeless Tobacco: Former Snuff Quit: 07/17/1991 Tobacco Cessation:Counseling Given: Not Answered Comments:was a heavy smoker. quit cold turkey from all tobacco 1990 Alcohol Use Standard Drinks/Week Comments Not Currently 0 (1 standard drink = 0.6 oz pur e alcohol) quit drinking 2010 [facility] [employer] Answer Date Recorded In the past 12 [...] often do you attend chur ch or hindu services? 1 to 4 times per year 12/21/2022 Do you belong to any clubs o r organizations such as christian groups, unions, fraternal or athletic groups, or [...] and heating? Not hard at all 02/24/2023 [facility] of Occupat ional Health - Occupational Stress Questionnaire Answer Date Recorded [...] your living situation today? I have a [facility] place to live 01/16/2024 Education Answer Date Recorded What is the highest level of school you have completed or the highest degree you have received? Some college, no degree 12/21/2022 Sex and Gender Information Value Date Recorded Sex Assigned at Male 09/05/2021 9:48 AM TEACHER'S AIDE Gender Identity Male 08/31/2021 8:54 AM TEACHER'S AIDE Sexual Orientation Straight 08/31/2021 8: 54 AM TEACHER'S AIDE Last Filed Vital Signs Vital Sign Reading [...] CDT Comprehensive Visit Department of Neurology in [place], [place] [address] [place] [phone] Jannie Jaquez M.D. [address] [place] [phone] Renetta Kramer M.A., [facility] [address] [place] [phone] 02/20/2024 10:00 AM CDT Appointment [facility] in [place], [place] [address] [place] [phone] Jannie Jaquez M.D. [address] [place] [phone] Renetta Kramer M.A., [facility] [address] [place] [phone] 02/20/2024 10:30 AM CDT Clinical Support Department of Neurology in [place], [place] [address] [place] [phone] Jannie Jaquez M.D. [address] [place] [phone] Renetta Kramer M.A., [facility] [address] [place] [phone] Health Maintenance Due Date Last Done Comments CT Colonography 1950 Cologuard 1950 Diabetic Office Visit with Foot Exam 1950 Hepatitis C Screening 1950 Pneumococcal vaccine (65+ years) (3 of 3 - PPSV23 or PCV20) 11/05/2017 07/07/2015, 11/05/2012 Urine Albumin 07/28/2022 07/28/2021 Colonoscopy 04/02/2023 04/02/2018, 10/17, 2012 (Performed elsewhere) Colorectal Cancer Surveillance 04/02/2023 COVID-19 Vaccine (2022-24 season) 2023 06/19/2023, 07/06/2022, 01/03/2022, Additional history exists Depression Screening (Annual PHQ-2) 09/16/2023 DTaP,Tdap,and Td Vaccines (2 - Td or Tdap) 02/05/2024 02/04/2014 Hemoglobin A1C 02/15/2024 08/16/2023, 06/16, 09/19/2021, Additional history exists Office Visit for Blood Pressure Check / Re-check 04/22/2024 01/21/2024 Lipid (Cholesterol) Screening 07/20/2024 07/20/2019, 06/06/2017 Dilated Eye Exam 09/27/2024 09/27/2023 Creatinine Level (Kidney Function Test) 02/04/2025 02/05/2024, 01/20/2024, 10/30/2023, Additional history exists Potassium Level 02/04/2025 02/05/2024, 05/0 02/2024, 10/30/2023, Additional history exists Sodium Level 02/04/2025 02/05/2024, 05/0 02/2024, 10/30/2023, Additional history exists Hepatitis B Vaccines Completed 01/21/1991, 08/15/1990, 07/11/1990 Abdominal Aortic Aneurysm (AAA) Screen Completed 11/05/2012, 11/05/2012 Zoster Vaccines Completed 08/30/2020, 06/16, 06/24/2020 Influenza Vaccine Completed 06/19/2023, , 06/29/2021, Additional history exists Fall Risk Screen (Annual) Completed 02/04/2024 HPV Vaccines Aged Out No longer eligi ble based on patient's age to complete this topic Medical Devices Implanted Type Area Rivet Machine Operator Device Identifier Shelf Expiration Date Model / Serial / Lot Premier 3.0 X 12 - [id number] Implanted:Qty: 1 on 10/25/2015 Cardiac Stent [employer] Description:Device Manufactu rer - [employer]. Device Status Text - [id number]. Premier 3.5 X 24 - [id number] Implanted:Qty: 1 on 10/25/2015 Cardiac Stent [employer] Description:Device Manufactu rer - [employer]. Device Status Text - [id number]. Premier 4.0 X 8 - [id number] Implanted:Qty: 1 on 10/25/2015 Cardiac Stent [employer] Description:Device Manufactu rer - [employer]. Device Status Text - [id number]. Marker Tissue Biomarc Kv 1x5 - [id number] Implanted:Qty: 4 on 12/18/2021 by Grabiel Boyce M.D. at [facility] Imaging Marker Circumfere ntial: Prostate [facility] [id number] 06/08/2026 [id number] / / [id number] Ocular Lens Ocular Lens Right: Eye Procedures [...] HEMOGLOBIN A1C, B Routine 08/16/2023 11:19 AM TEACHER'S AIDE Symptom Urinary ALBUMIN, RANDOM, U Routine 07/28/2021 9: 26 AM TEACHER'S AIDE Diabetes Mellitus Type 2 (HCC) LIPID PANEL, S Routine 07/20/2019 8:36 AM TEACHER'S AIDE Stenosis Aortic Valve Acquired CT ABDOMEN PELVIS WITH IV CONTRAST RAD - Routine (most inpatients and all outpatients) 11/05/2012 1:37 PM TEACHER'S AIDE from Last 3 Months or Most Recently [...] CDT Jannie Jaquez M.D. LAB BLOOD ADD-ON [facility] [address] [place] [address], [facility] [place] [facility] [address] [place] [address] * (ABNORMAL) Basic Metabolic Panel (02/05/2024 5:04 PM CDT) Only the most recent of2 resultswithin the time period is included. Potassium, S 4.2 3.6 - 5.2 mmol/L [...] CDT Jannie Jaquez M.D. LAB BLOOD ADD-ON [facility] [address] [place] [address], [facility] [address] [place] [address] * Dipstick, Urine (02/05/2024 5:01 PM CDT) Hemoglobin, QL, U Negative Negative 02/05/2024 5:36 PM CDT DTL Leukocyte Esterase, U Negative Negative 02/05/2024 5:36 PM CDT DTL Nitrite, U Negative Negative 02/05/2024 5:36 PM CDT DTL Ketone, U Negative Negative mg/dL 02/05/2024 5:36 PM CDT DTL Glucose, U Negative Negative mg/dL 02/05/2024 5:36 PM CDT DTL Urine 02/05/2024 5:01 PM CDT 02/05/2024 5:09 PM CDT Narrative Authorizing Provider Result Katharina Jaquez M.D. LAB URINE ORDERABL ES Performing Organization Address City/[facility]/ZIP Co de Phone Number [facility] [address] [place] [address], [facility] [address] [place] [address] * Microscopic Automated (02/05/2024 5:01 PM CDT) Microscopy Normal 02/05/2024 5:36 PM CDT DTL RBC None Seen <3 /hpf 02/05/2024 5:36 PM CDT DTL WBC None Seen /hpf 02/05/2024 5:36 PM CDT DTL Comment: ----REFERENCE VALUE---- <4 ??(Males) <11 (Females) Urine 02/05/2024 5:01 PM CDT 02/05/2024 5:09 PM CDT Jannie Jaquez M.D. LAB URINE ORDERABL ES Performing Organization Address [facility] Co de Phone Number [facility] [address] [place] [address], [facility] [address] [place] [address] * pH, Urine (02/05/2024 5:01 PM CDT) pH, U 5.5 4.5 - 8.0 02/05/2024 5:4 6 PM CDT DTL Urine 02/05/2024 5:01 PM CDT 02/05/2024 5:09 PM CDT Jannie Jaquez M.D. LAB URINE ORDERABL ES Performing Organization Address City/[facility]/ZIP Co de Phone Number [facility] [address] [place] [address], [facility] [address] [place] [address] * (ABNORMAL) Protein/Creatinine Ratio, Random, Urine (02/05/2024 [...] LAB URINE ORDERABL ES Performing Organization Address City/[facility]/ZIP Co de Phone Number [facility] [address] [place] [address], [facility] [address] [place] [address] * (ABNORMAL) Osmolality, Urine (02/05/2024 5:01 PM CDT) Osmolality, U 144(L) 150 - 1150 mOsm/kg 02/05/2024 5:46 PM CDT DT Urine 02/05/2024 5:01 PM CDT 02/05/2024 5:09 PM CDT Jannie Jaquez M.D. LAB URINE ORDERABL ES [facility] [address] [place] [address], [facility] [address] [place] [address] * (ABNORMAL) Urinalysis, with Microscopic: Urine, Midstream [...] Jannie Jaquez M.D. LAB URINE ORDERABL ES [facility] [address] [place] [address], [facility] [address] [place] [address] * Surgical Pathology (02/04/2024 10:18 AM CDT) [...] reagent. Its performance characteristics were determined by [facility] in a manner consistent with CLIA requirements. [...] Gentile M.D. LAB SURG PATH ORDER DANYA [facility] [address] [place] [address], [facility] DT [address] [place] [address] * Stomach, Pylorus Upper GI endoscopy-Gastroenterology Image [...] System IMG NON RAD IMAGI NG PROCEDURES IIMS NA * Upper GI Endoscopy (02/04/2024 9:52 AM CDT) 02/04/2024 9:52 AM CDT Impressions [facility] - 02/04/2024 10:28 AM CDT Post-op Diagnoses: ? - Z-line regular, 40 cm from the incisors. ? - Tortuous esophagus. ? - Non-bleeding gastric ulcer with no stigmata of bleeding. Biopsied. ? - Normal examined duodenum. ? - The examination was otherwise normal. ? - Biopsies were taken with a cold forceps for evaluation of eosinophilic ? esophagitis. Narrative [facility] - 02/04/2024 10:28 AM CDT Gonda 9 GI GI Patient Name: Bora Rider [...] GI PROCEDURE ORDER DANYA Performing Organization Address City/State/ZIP Co dc Phone Number [facility] NA * (ABNORMAL) CBC with Differential, Blood [...] M.D. LAB BLOOD ADD-ON Performing Organization Address City/State/[facility] Co de Phone Number [facility] [address] [place] [phone], [facility] CNFL [facility] in [address] [place] [address] * PSA (Prostate-Specific Antigen), Diagnostic (01/20/2024 8:34 AM CDT) Prostate-Specific Ag <0.10 <=6.5 ng/mL 01/20/2024 1:30 PM CDT RDW Comment: ----ADDITIONAL INFORMATION---- The testing method is an electrochemiluminescence assay manufactured by [employer] and performed on the Modular or [employer]aked[employer] system. Values obtained with different assay methods or kits may be different and cannot be used interchangeably. Test results cannot be interpreted as absolute evidence for the presence or absence of malignant disease. Blood (Blood, Venous) 01/20/2024 8:34 AM CDT 01/20/2024 12:53 PM CDT Higinio Kelly M.D. LAB BLOOD ADD-ON Performing Organization Address City/[facility]/ZIP Co de Phone Number [facility] [address] [place] [address], [facility] RDWG [facility] in [address] [phone] * (ABNORMAL) Hemoglobin A1c (08/16/2023 11:19 AM TEACHER'S AIDE) Hemoglobin A1c, B 5.9(H) 4.0 - 5.6 % 08/16/2023 11:58 AM TEACHER'S AIDE DTL Comment: Hemoglobin A1c values of 5.7-6.4 percent indicate an increased risk for developing diabetes mellitus. In diabetic patients, HbA1c goals should be discussed with healthcare provider. Blood (Blood, Venous) 08/16/2023 11:19 AM TEACHER'S AIDE 08/16/2023 11:41 AM TEACHER'S AIDE Jolynn Don M.D. LAB BLOOD ADD-O N [facility] [address] [place] [address], [place] DTL [facility] [address] [place] [address] * (ABNORMAL) Albumin, Random, Urine (07/28/2021 9:26 AM TEACHER'S AIDE) Albumin, Random, U 38.8 mg/L 2020 11:26 AM TEACHER'S AIDE DTL Comment: ----ADDITIONAL INFORMATION---- This test has been modified from the deputy court clerk's instructions. Its performance characteristics were determined by [facility] in a manner consistent with CLIA requirements. This test has not been cleared or approved by the U.S. Food and Drug Administration. Creatinine 132 mg/dL 07/28/2021 10:50 AM TEACHER'S AIDE DTL Albumin/Creatinine Ratio 29(H) <17 mg/g 07/28/2021 11:26 AM TEACHER'S AIDE DTL Urine (Urine, Clean Catch) 07/28/2021 9:26 AM TEACHER'S AIDE 07/28/2021 10:08 AM TEACHER'S AIDE Nicolas Mazariegos M.D. LAB URINE ORDERABLE S [facility] [address] [place], [place] [address] [address] [place] [address] * (ABNORMAL) Lipid Panel (07/20/2019 8:36 AM TEACHER'S AIDE) Cholesterol, Total 134 mg/dL 2018 10:34 AM TEACHER'S AIDE DTL Comment: ----REFERENCE VALUE---- Desirable: < 200 Borderline high: 200 - 239 High: > or = 240 Triglycerides 158(H) mg/dL 07/20/2019 10:34 AM TEACHER'S AIDE DTL Comment: ----REFERENCE VALUE---- Normal: <150 Borderline high: 150-199 High: 200-499 Very high: > or =500 Cholesterol, HDL, S 43 >=40 mg/dL 07/20/2019 10:34 AM TEACHER'S AIDE DTL Calculated LDL 59 mg/dL 07/20/2019 10:34 AM TEACHER'S AIDE DTL Comment: ----REFERENCE VALUE---- Desirable: <100 Above Desirable: 100-129 Borderline high: 130-159 High: 160-189 Very high: > or =190 Cholesterol, Non-HDL, Calculated 91 mg/dL 07/20/2019 10:34 AM TEACHER'S AIDE DTL Comment: ----REFERENCE VALUE---- Desirable: <130 Above Desirable: 130-159 Borderline high: 160-189 High: 190-219 Very high: > or =220 Blood (Blood, Venous) 07/20/2019 8:36 AM TEACHER'S AIDE 07/20/2019 8:58 AM TEACHER'S AIDE Larry Qiu M.D. LAB BLOOD ADD-ON [facility] [address] [place] [address], [place] [facility] [address] [place] [address] from Last 3 Months or Most Recently Relevant to Health Maintenance Care Teams Donor Specialist Relationship Specialty Start Date End Date Elsewhere, Pcp PCP - General Internal Medicine 09/06/21
--- OUTSIDE RECORDS SUMMARY | 2024-02-17 20:40 | XMS_ITS | Encounter Summary ---
Author Organization [facility] Address [address] [place] [address] Care Team Providers Care Diet Counselor Name Role Phone Elsewhere, Pcp Primary Care Provider Unavailabl e Encounter Details Date Type Department Care Team (Late st Contact Info) Description 02/06/2024 Orders Only Division of Hematology in [place], [place] [address] [place] [address] Jannie Jaquez M.D. [address] [place] [phone] Social History Tobacco Use Types Packs/Day Years Used Date Smoking Tobacco: Former Cigarettes 2 11.8 0 09/16/1979 - 07/17/1991 Smokeless Tobacco: Former Snuff Quit: 07/17/1991 Comments:was a heavy smoker. quit cold turkey from all tobacco 1990 Alcohol Use Standard Drinks/Week Comments Not Currently 0 (1 standard drink = 0.6 oz pur e alcohol) quit drinking 2010 [facility] Utilities Answer Date Recorded In the past 12 months has e [place], gas, oil, or water documistic threatened to shut off services in your [...] friends, or neighbors? Once a week 12/22/19 23 How often do you get togethe r with friends or relatives? Never 12/21/2022 How often do you attend chur ch or episcopal services? 1 to 4 times per year 12/21/2022 Do you belong to any clubs o r organizations such as mosque groups, unions, fraternal or athletic groups, or [...] and heating? Not hard at all 02/24/2023 [facility] of Occupat ional Health - Occupational Stress [...] your living situation today? I have a [facility] place to live 01/16/2024 Education Answer Date Recorded What is the highest level of school you have completed or the highest degree you have received? Some college, no degree 12/21/2022 Sex and Gender Information Value Date Recorded Sex Assigned at Male 09/05/2021 9:48 AM IRRIGATOR VALVE PIPE Gender Identity Male 08/31/2021 8:54 AM IRRIGATOR VALVE PIPE Sexual Orientation Straight 08/31/2021 8: 54 AM IRRIGATOR VALVE PIPE documented as of this encounter Plan of Treatment Upcoming Encounters Date Type Department Care Team (Late st Contact Info) Description 02/20/2024 9:30 AM CDT Comprehensive Visit Department of Neurology in [place], [place] [address] [place] [phone] Jannie Jaquez M.D. [address] [place] [phone] Renetta Kramer M.A., [facility] [address] [place] [phone] 02/20/2024 10:00 AM CDT Appointment Department of Radiology, [facility], in [place], [place] [address] [place] [phone] Jannie Jaquez M.D. [address] [place] [phone] Renetta Kramer M.A., [facility] [address] [place] [phone] 02/20/2024 10:30 AM CDT Clinical Support Department of Neurology in [address] [phone] Jannie Jaquez M.D. [address] [place] [phone] Renetta Kramer M.A., [facility] [address] [place] [address] [phone] documented as of this encounter Visit Diagnoses Not on filedocumented in this encounter Care Teams Diet Counselor Relationship Specialty Start Date End Date Elsewhere, Pcp PCP - General Internal Medicine 09/06/21 documented as of this encounter
--- OUTSIDE RECORDS SUMMARY | 2024-02-17 20:40 | XMS_ITS | Encounter Summary ---
Author Organization [facility] Address [address] [place] [address] Care Team Providers Care Laborer Cement Gun Placing Name Role Phone Elsewhere, Pcp Primary Care Provider Unavailabl e Reason for Referral * Outpatient (Routine) - Closed Specialty Diagnoses / Procedures Referred By Judy love Referred To Contact Diagnoses Primary Malignant Neoplasm Of Prostate (HCC) Procedures US Kidneys Bilateral with Bladder Jannie Jaquez M.D. [address] [place] [address] [facility] Referral ID Status Reason Start Date Expiration Date Visits Re quested Visits Authorized [id number] Closed 01/21/2024 01/20/2025 1 1 Reason for Visit * Outpatient (Routine) - Closed Specialty Diagnoses / Procedures Referred By Judy love Referred To Contact Diagnoses Primary Malignant Neoplasm Of Prostate (HCC) Procedures US Kidneys Bilateral with Bladder Jannie Jaquez M.D. [address] [place] [address] [facility] Referral ID Status Reason Start Date Expiration Date Visits Re quested Visits Authorized [id number] Closed 01/21/2024 01/20/2025 1 1 Encounter Details Date Type Department Care Team (Latest Contact Info) Description 02/05/2024 5:51 PM CDT - 02/05/2024 11:59 PM CDT Hospital Encounter Department of Radiology, [facility], in [place], [place] [address] [place] [address] Jannie Jaquez M.D. [address] [place] [address] Primary Malignant Neoplasm Of Prostate (HCC) Discharge Disposition: Home or Self Care Social History Tobacco Use Types Packs/Day Years Used Date Smoking Tobacco: Former Cigarettes 2 11.8 0 09/16/1979 - 07/17/1991 Smokeless Tobacco: Former Snuff Quit: 07/17/1991 Comments:was a heavy smoker. quit cold turkey from all tobacco 1990 Alcohol Use Standard Drinks/Week Comments Not Currently 0 (1 standard drink = 0.6 oz pur e alcohol) quit drinking 2010 [facility] Utilities Answer Date Recorded In the past 12 months has e [employer], gas, oil, or water [employer] threatened to shut off services in your [...] often do you attend chur ch or worship services? 1 to 4 times per year 12/21/2022 Do you belong to any clubs o r organizations such as rastafarian groups, unions, fraternal or athletic groups, or [...] and heating? Not hard at all 02/24/[address] [facility] of Occupat ional Health - Occupational Stress [...] living situation today? I have a [facility] place to live 01/16/2024 Education Answer Date Recorded What is the highest level of school you have completed or the highest degree you have received? Some college, no degree 12/21/2022 Sex and Gender Information Value Date Recorded Sex Assigned at Male 09/05/2021 9:48 AM DENTAL TECH Gender Identity Male 08/31/2021 8:54 AM DENTAL TECH Sexual Orientation Straight 08/31/2021 8: 54 AM DENTAL TECH documented as of this encounter Medications at Time of Discharge Medication Sig Dispensed Refills Start Date End Date amLODIPine (NORVASC) 2.5 mg tablet Take 2.5 mg by mouth every morning. 2 06/15/2019 atorvastatin (LIPITOR) 40 mg tablet Take 1 tablet by mouth at bedtime. 09/28/2016 calcium citrate-vitamin D3 (CITRACAL+D) 315 mg-5 mcg (200 Unit) per tablet Take 2 tablets by mouth 2 (two) times a day with meals. clindamycin (CLEOCIN T) 1 % lotion Apply 1 Application topically once as needed (rosacea). clotrimazole-betame thasone (LOTRISONE) 1-0.05 % cream 1 Application as needed. 09/07/2020 cyanocobalamin (VITAMIN B12) 1,000 mcg tablet Take 1,000 mcg by mouth daily. DME Urological suppliesIndications :Retention Urinary DME Order 1 Unspecified 04/17/2023 fexofenadine (CRISTINA) 180 mg tablet Take 180 mg by mouth daily as needed for allergies. iron,carbonyl-vitam in C (VITRON-C) 65 mg iron- [address] tablet Take 65 mg of iron by mouth every other day. Do not crush or chew. losartan (COZAAR) 25 mg tablet Take 1 tablet by mouth every morning. 12/05/2020 metoprolol succinate (TOPROL-XL) 100 mg 24 hr tablet Take 100 mg by mouth every morning. Valerie 128 5 % ophthalmic ointment Apply to left eye. 09/06/2023 nitroglycerin (NITROSTAT) 0.[address] 0.4 mg under the tongue every 5 (five) minutes as needed. 09/08/2021 psyllium (METAMUCIL) 0.52 gram capsule Take 0.52 g by mouth 2 (two) times a day. tamsulosin (FLOMAX) 0.4 mg 24 hr capsule Take 1 capsule (0.4 mg total) by mouth daily. 60 capsule 1 01/12/2022 raNITIdine (ZANTAC) 150 mg tablet Take 150 mg by mouth daily as needed for heartburn. 04/02/2018 02/06/2024 documented as of this encounter Plan of Treatment Upcoming Encounters Date Type Department Care Team (Late st Contact Info) Description 02/20/2024 9:30 AM CDT Comprehensive Visit Department of Neurology in [address] [phone] Jannie Jaquez M.D. [address] [place] [phone] Renetta Kramer M.A., [address] [phone] 02/20/2024 10:00 AM CDT Appointment Department of Radiology, [facility], in [address] [phone] Jannie Jaquez M.D. [address] [place] [phone] Renetta Kramer M.A., [facility] [address] [place] [address] [phone] 02/20/2024 10:30 AM CDT Clinical Support Department of Neurology in [address] [phone] Jannie Jaquez M.D. [address] [place] [address] [phone] Renetta Kramer M.A., [facility] [address] [place] [address] [phone] documented as of this encounter Procedures Procedure Name Priority Date/Time Associated Diagnosis Comments US KIDNEYS BILATERAL WITH BLADDER RAD - Routine (most inpatients and all outpatients) 02/05/2024 6:22 PM CDT Primary Malignant Neoplasm Of Prostate (HCC) documented in this encounter Results * US Kidneys Bilateral with Bladder [...] a normalsonographic appearance. Specifically, no hydronephrosis. Jannie I. Marar M.D. IMG US PROCEDURES documented in this encounter Visit Diagnoses Diagnosis Primary Malignant Neoplasm Of Prostate (HCC) documented in this encounter Care Teams Laborer Cement Gun Placing Relationship Specialty Start Date End Date Elsewhere, Pcp PCP - General Internal Medicine 09/06/21 documented as of this encounter
--- OUTSIDE RECORDS SUMMARY | 2024-02-17 20:40 | XMS_ITS | Encounter Summary ---
Author Organization [facility] Address [address] [place] [address] Care Team Providers Care Captain Assistant Name Role Phone Elsewhere, Pcp Primary Care Provider Unavailabl e Encounter Details Date Type Department Care Team (Late st Contact Info) Description 02/06/2024 Clinical Communication Division of Hematology in [place], [place] [address] [place] [address] Jannie Jaquez M.D. [address] [place] [address] Social History Tobacco Use Types Packs/Day Years Used Date Smoking Tobacco: Former Cigarettes 2 11.8 0 09/16/1979 - 07/17/1991 Smokeless Tobacco: Former Snuff Quit: 07/17/1991 Comments:was a heavy smoker. quit cold turkey from all tobacco 1990 Alcohol Use Standard Drinks/Week Comments Not Currently 0 (1 standard drink = 0.6 oz pur e alcohol) quit drinking 2010 [facility] Utilities Answer Date Recorded In the past 12 months has e [employer] gas, oil, or water [employer] threatened to shut off services in your [...] often do you attend chur ch or yazidi services? 1 to 4 times per year 12/21/2022 Do you belong to any clubs o r organizations such as religious groups, unions, fraternal or athletic groups, or [...] and heating? Not hard at all 02/24/2023 [facility] of Occupat ional Health - [...] your living situation today? I have a [facility] place to live 01/16/2024 Education Answer Date Recorded What is the highest level of school you have completed or the highest degree you have received? Some college, no degree 12/21/2022 Sex and Gender Information Value Date Recorded Sex Assigned at Male 09/05/2021 9:48 AM DIRECT SUPPORT PROFESSIONAL HOME HEALTH Gender Identity Male 08/31/2021 8:54 AM DIRECT SUPPORT PROFESSIONAL HOME HEALTH Sexual Orientation Straight 08/31/2021 8: 54 AM DIRECT SUPPORT PROFESSIONAL HOME HEALTH documented as of this encounter Miscellaneous Notes * Telephone Encounter - Jannie Jaquez M.D. - 02/06/2024 5:48 PM CDT Called patient to go over testing results. Given persistent DION, I did ask patient to work on increasing hydration with improvement in creatinine from 1.7 to 1.44. I did recommend that he continue to work on improving his fluid intake. Urine negative for proteinuria or other concerning findings. Renal ultrasound negative for hydronephrosis. In regards to workup for dysphagia, EGD did show a tortuous esophagus with a nonbleeding gastric ulcer that was biopsied. Biopsy results did return and were consistent with mild chronic gastritis, noevidence of metaplasia or dysplasia, H pylori negative. Esophageal biopsy with normal squamous esophageal mucosa and no evidence of intraepithelial eosinophils. We did discuss starting on a PPI such as omeprazole 40 mg once daily. I did refer him to GI for a dysphagia evaluation. All questions and concerns were addressed. Jannie Jaquez MD documented in this encounter Plan of Treatment Upcoming Encounters Date Type Department Care Team (Late st Contact Info) Description 02/20/2024 9:30 AM CDT Comprehensive Visit Department of Neurology in [address] [phone] Jannie Jaquez M.D. [address] [place] [phone] Renetta Kramer M.A., [facility] [phone] 02/20/2024 10:00 AM CDT Appointment Department of Radiology, [facility], in [address] [phone] Jannie Jaquez M.D. [address] [place] [phone] Renetta Kramer M.A., [facility] [phone] 02/20/2024 10:30 AM CDT Clinical Support Department of Neurology in [address] [phone] Jannie Jaquez M.D. [address] [place] [phone] Renetta Kramer M.A., [facility] [phone] documented as of this encounter Visit Diagnoses Not on filedocumented in this encounter Care Teams Captain Assistant Relationship Specialty Start Date End Date Elsewhere, Pcp PCP - General Internal Medicine 09/06/21 documented as of this encounter
--- OUTSIDE RECORDS SUMMARY | 2024-02-17 20:40 | XMS_ITS ---
Author Organization [facility] Address [address] [place] [address] Care Team Providers Care Reclamation Furnace Operator Name Role Phone Unavailable Unavailable Unavailable Surgery Details Not on file Complications Check Surgery Details section. Procedure Estimated Blood Loss Check Surgery Details section. Procedure Findings Check Surgery Details section. Procedure Specimens Taken Check Surgery Details section.
--- OUTSIDE RECORDS SUMMARY | 2024-02-17 20:40 | XMS_ITS | Encounter Summary ---
Author Organization [facility] Address [address] [place] [address] Care Team Providers Care Rotary Envelope Machine Operator Name Role Phone Elsewhere, Pcp Primary Care Provider Unavailabl e Encounter Details Date Type Department Care Team (Latest Contact Info) Description 02/04/2024 9:55 AM CDT Ancillary Procedure Department of Gastroenterology Social History Tobacco Use Types Packs/Day Years Used Date Smoking Tobacco: Former Cigarettes 2 11.8 0 09/16/1979 - 07/17/1991 Smokeless Tobacco: Former Snuff Quit: 07/17/1991 Comments:was a heavy smoker. quit cold turkey from all tobacco 1990 Alcohol Use Standard Drinks/Week Comments Not Currently 0 (1 standard drink = 0.6 oz pur e alcohol) quit drinking 2010 [facility] Utilities Answer Date Recorded In the past [...] often do you attend chur ch or gnosticism services? 1 to 4 times per year 12/21/2022 Do you belong to any clubs o r organizations such as advent groups, unions, fraternal or athletic groups, or [...] and heating? Not hard at all 02/24/2023 [facility] [place] of Occupat ional Health - Occupational Stress [...] Sex Assigned at Male 09/05/2021 9:48 AM MANAGER BUSINESS INTELLIGENCE Gender Identity Male 08/31/2021 8:54 AM MANAGER BUSINESS INTELLIGENCE Sexual Orientation Straight 08/31/2021 8: 54 AM MANAGER BUSINESS INTELLIGENCE documented as of this encounter Plan of Treatment Upcoming Encounters Date Type Department Care Team (Late st Contact Info) Description 02/20/2024 9:30 AM CDT Comprehensive Visit Department of Neurology in [address] [phone] Jannie Jaquez M.D. [address] [place] [phone] Renetta Kramer M.A., [facility]-PURCHASING CONTRACTING CLERK [address] [place] [phone] 02/20/2024 10:00 AM CDT Appointment Department of Radiology, [facility], in [place], [place] [address] [place] [phone] Jannie Jaquez M.D. [address] [place] [phone] Renetta Kramer M.A., CCC-PURCHASING CONTRACTING CLERK [address] [place] [phone] 02/20/2024 10:30 AM CDT Clinical Support Department of Neurology in [place], [place] [address] [place] [phone] Jannie Jaquez M.D. [address] [place] [phone] Renetta Kramer M.A., [facility]-PURCHASING CONTRACTING CLERK [address] [place] [phone] documented as of this encounter Procedures Procedure Name Priority Date/Time Associated Diagnosis Comments GASTROENTEROLOGY IMAGE EXAM Routine 02/04/2024 9:55 AM CDT documented in this encounter Results * Stomach, Pylorus Upper GI endoscopy-Gastroenterology Image [...] NON RAD IMAGI NG PROCEDURES IIMS NA documented in this encounter Visit Diagnoses Not on filedocumented in this encounter Care Teams Rotary Envelope Machine Operator Relationship Specialty Start Date End Date Elsewhere, Pcp PCP - General Internal Medicine 09/06/21 documented as of this encounter
--- OUTSIDE RECORDS SUMMARY | 2024-02-17 20:40 | XMS_ITS | Continuity of Care Document ---
Author Organization [facility] Address [address] [address] [place] [address] Phone Care Team Providers Care Cylindrical Mixer Name Role Phone Any Aden Unavailable Unavailable [...] Compl [facility], [address] [address], [place], [place], [id number], [place] tel:[phone] [facility] No Information 3 Omi Agarwal. [address] [facility], [facility] [address], [place], [place], [id number], [place]. tel:[phone] Referring Provider: Luis F Bowles, [address] [place] [address], [place], [address]. tel:[phone] Init Inpt Cons New/est Mod-hi [facility], [address] [address], [place], [place], [id number], [place] tel:[phone] [facility] No Information 3 No Information Referring Provider: Luis F Bowles, [address], [address]. tel:[phone] Family History Family Member Type Diagnosis Age At Onset No Information Payers Payer name Insurance type Covered alliance party ID Russel mac(s) [employer] CI [id number] Social History Type Description Quantity Date Captured [...]
--- OUTSIDE RECORDS SUMMARY | 2024-02-17 20:40 | XMS_ITS ---
Author Organization [facility] Address [address] [place] [address] Care Team Providers Care Automation Manager Name Role Phone Elsewhere, Pcp Primary Care Provider Unavailabl e Active Problems Problem Noted Date Diagnosed Date [...] Coronary Artery 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 11/03/2015 Current Oncology Plans Leuprolide Acetate Every 24 Weeks* Plan Start Date:12/07/2021 Plan Provider:Jese Zepeda APRN, C.N.P., D.N.P. Linked Problems Primary Malignant Neoplasm O f Prostate (HCC) Treatment Medications No medications scheduled. Past Plans Hem/Onc Therapy Plan 1 Plan Name Start Date Discontinue Date Treatment Medications Discontinue Reason Plan Provider Degarelix 10/30/2021 11/09/2021 No medications scheduled. Therapy Complete Redd Dodd M.D. Radiation Treatments * Plan Last Treated On Elapsed Days Fractions Treated Prescribed Fraction Dose Prescribed Total Dose [id number] S 02/08/2022 38 2 of 2 950 cGy 1,900 cGy [id number] 02/02/2022 32 25 of 25 190 cGy 4,750 cGy Reference Point Last Treated On Elapsed Days Session Dose Total Dose DPV 6650x 02/08/2022 38 950 cGy 6,650 cGy Resolved Problems Problem Noted Date Diagnosed Date Resolved Date Elevated Prostate-Specific Antigen 08/23/2021 08/16/2023 Nodule Prostate 08/23/2021 08/16/2023 Non-ST Elevation Myocardial Infarction 07/20/2019 09/11/2021 Impaired Fasting Glucose 07/20/2019 Anemia 07/20/2019 09/11/2021 Hypertension Borderline 07/20/201908/17
--- OUTSIDE RECORDS SUMMARY | 2024-02-17 20:40 | XMS_ITS | Encounter Summary ---
Author Organization [facility] Address [address] [place] [address] Care Team Providers Care Press Operator Helper Name Role Phone Elsewhere, Pcp Primary Care Provider Unavailabl e Encounter Details Date Type Department Care Team (Late st Contact Info) Description 02/07/2024 Clinical Communication Department of Radiation Oncology in [place], [place] [address] [place] [phone] Jese Zepeda, STOCK PATCHER, C.N.P., D.N.P. [address] [place] [phone] Social History Tobacco Use Types Packs/Day Years Used Date Smoking Tobacco: Former Cigarettes 2 11.8 0 09/16/1979 - 07/17/1991 Smokeless Tobacco: Former Snuff Quit: 07/17/1991 Comments:was a heavy smoker. quit cold turkey from all tobacco 1990 Alcohol Use Standard Drinks/Week Comments Not Currently 0 (1 standard drink = 0.6 oz pur e alcohol) quit drinking 2010 [facility] Utilities Answer Date Recorded In the [...] heating? Not hard at all 02/24/2023 [facility]ational Stress Questionnaire Answer Date [...] your living situation today? I have a [facility] place to live 01/16/2024 Education Answer Date Recorded What is the highest level of school you have completed or the highest degree you have received? Some college, no degree 12/21/2022 Sex and Gender Information Value Date Recorded Sex Assigned at Male 09/05/2021 9:48 AM STRENGTH AND CONDITIONING COACH Gender Identity Male 08/31/2021 8:54 AM STRENGTH AND CONDITIONING COACH Sexual Orientation Straight 08/31/2021 8: 54 AM STRENGTH AND CONDITIONING COACH documented as of this encounter Plan of Treatment Upcoming Encounters Date Type Department Care Team (Late st Contact Info) Description 02/20/2024 9:30 AM CDT Comprehensive Visit Department of Neurology in [place], [place] 200 [place] [phone] Jannie Jaquez M.D. [address] [place] [phone] Renetta Kramer M.A., [facility] 200 [place] [phone] 02/20/2024 10:00 AM CDT Appointment Department of Radiology, [facility], in [place], [place] 200 [place] [phone] Jannie Jaquez M.D. [address] [place] [phone] Renetta Kramer M.A., [facility] MACHINE OPERATOR [address] [place] [address] [phone] 02/20/2024 10:30 AM CDT Clinical Support Department of Neurology in [place], [place] [address] [place] [phone] Jannie Jaquez M.D. [address] [place] [phone] Renetta Kramer M.A., [facility]PRESS[facility] MACHINE OPERATOR [address] [place] [phone] documented as of this encounter Visit Diagnoses Not on filedocumented in this encounter Care Teams Press Operator Helper Relationship Specialty Start Date End Date Elsewhere, Pcp PCP - General Internal Medicine 09/06/21 documented as of this encounter
--- OUTSIDE RECORDS SUMMARY | 2024-02-17 20:41 | XMS_ITS | Encounter Summary ---
Author Organization [facility] Address [address] [place] [address] Care Team Providers Care Elementary Instructional Coach Name Role Phone Elsewhere, Pcp Primary Care Provider Unavailabl e Reason for Referral * Outpatient (Routine) - Closed Specialty Diagnoses / Procedures Referred By Judy lvoe Referred To Contact Diagnoses Primary Malignant Neoplasm Of Prostate (HCC) Procedures EGD (EsophagealGastroDuodenoscopy ) Jannie Jaquez M.D. [address] [place] [address] [facility] Referral ID Status Reason Start Date Expiration Date Visits Re quested Visits Authorized [id number] Closed 01/21/2024 01/20/2025 1 1 Reason for Visit * Outpatient (Routine) - Closed Specialty Diagnoses / Procedures Referred By Judy love Referred To Contact Diagnoses Primary Malignant Neoplasm Of Prostate (HCC) Procedures EGD (EsophagealGastroDuodenoscopy ) Jannie Jaquez M.D. [address] [place] [address] [facility] Referral ID Status Reason Start Date Expiration Date Visits Re quested Visits Authorized [id number] Closed 01/21/2024 01/20/2025 1 1 Encounter Details Date Type Department Care Team (Latest Contact Info) Description 02/04/2024 8:27 AM CDT - 02/04/2024 11:59 PM CDT Hospital Encounter Division of Gastroenterology in [place], [place] [address] [place] [address] Jannie Jaquez M.D. [address] [place] [address] Primary Malignant Neoplasm Of Prostate (HCC) Discharge [...] oz pur e alcohol) quit drinking 2010 [facility] Utilities Answer Date Recorded In the past 12 months has th e [employer], gas, oil, or water [employer] threatened to shut off services in your [...] often do you attend chur ch or congregational services? 1 to 4 times per year 12/21/2022 Do you belong to any clubs o r organizations such as restorationist groups, unions, fraternal or athletic groups, or [...] and heating? Not hard at all 02/24/2023 [facility] [place] of Occupat ional Health - Occupational Stress [...] your living situation today? I have a [facility] place to live 01/16/2024 Education Answer Date Recorded What is the highest level of school you have completed or the highest degree you have received? Some college, no degree 12/21/2022 Sex and Gender Information Value Date Recorded Sex Assigned at Male 09/05/2021 9:48 AM BREAKER HAND Gender Identity Male 08/31/2021 8:54 AM BREAKER HAND Sexual Orientation Straight 08/31/2021 8: 54 AM BREAKER HAND documented as of this encounter Last Filed Vital Signs Vital Sign Reading [...] Mass Index 31.77 02/04/2024 8:47 AM CDT documented in this encounter Medications at Time of Discharge [...] 04/02/2018 02/06/2024 documented as of this encounter H&P Notes * Ravindra Gentile M.D. - 02/04/2024 9:15 AM CDT ASSESSMENT / PLAN Patient Name: Bora Rider Upper Endoscopy Procedure Department : DIVISION OF GASTROENTEROLOGY IN [place], [place] SUBJECTIVE Past Medical History: Diagnosis Date Amblyopia Bilateral Anemia 07/20/2019 Apnea Sleep Obstructive wears cpap BenignProstatic Hyperplasia Localized 2020 Cardiac Disease CAD, stents X3 2016 Cataract 2021 Concussion Loss Of Consciousness Unspecified Duration Initial 1994 Diabetes Mellitus NOS Dysphagia Elevated Prostate-Specific Antigen Family History Of Adenomatous And Serrated Polyps Mother Gallbladder Disorder 1985 Gastroesophageal Reflux Disease NOS Hyperlipidemia Hypertension NOS Irritable Bowel Syndrome Without Diarrhea 1999 Nodule Prostate Non-ST Elevation Myocardial Infarction (HCC) 2016 Other Specified Health Status blind left eye Polyp Colon Primary Malignant Neoplasm Of Prostate (HCC) 2020 Retinal Disorder Past Surgical History: Procedure Laterality Date APPENDECTOMY BAND KERATOPATHY DEBRIDEMENT AND CHELATION WITH EDTA Left 10/10/2023 Procedure: DEBRIDEMENT, BAND KERATOPATHY, CHELATION WITH ETHYLENEDIAMINETETRAACETIC ACID 0.25 Molarsolution.; Surgeon: Michael Prather M.D.; Location: [facility] OR BIOPSY TRANSPERINEAL PROSTATE N/A 09/13/2021 Procedure: BIOPSY TRANSPERINEAL PROSTATE.; Surgeon: Grabiel Braga M.D.; Location: [facility] OR CATHETERIZATION BLADDER N/A 09/13/2021 Procedure: CATHETERIZATION BLADDER; Surgeon: Grabiel Braga M.D.; Location: [facility] OR CATHETERIZATION BLADDER N/A 08/19/2023 Procedure: CATHETERIZATION BLADDER; Surgeon: Enrique Jaime M.D.; Location: [facility] OR CHOLECYSTECTOMY CORONARY STENT PLACEMENT 2016 >1. Drug-eluting stent placement to the proximal and mid LAD. Distal Circ. DILATATION URETHRA N/A 08/19/2023 Procedure: DILATATION URETHRA.; Surgeon: Enrique Jaime M.D.; Location: [facility] OR EYE SURGERY Left mult procedures, historic OTHER SURGICAL HISTORY 1968 Eye PHACOEMULSIFICATION CATARACT WITH INTRAOCULAR LENS IMPLANTATION Right 02/16/2022 VASECTOMY 1987 Social History Socioeconomic History Marital status: Highest education level: Some college, no degree Tobacco Use Smoking status: Former Current packs/day: 0.00 Average packs/day: 2.0 packs/day for 11.8 years (23.7 ttl pk-yrs) Types: Cigarettes Start date: 09/16/1979 Quit date: 07/17/1991 Years since quittin.5 Smokeless tobacco: Former Types: Snuff Quit date: 07/17/1991 Tobacco comments: was a heavy smoker. quit cold from all tobacco 1990 Vaping Use Vaping status: never used Substance and Sexual Activity Alcohol use: Not Currently Comment: quit drinking 2010 Drug use: Never Sexual activity: Defer Partners: Female control/protection: Vasectomy OBJECTIVE Weight: 98.3 kg Pain Score: 0 - No pain Consents Obtained: written The benefits, risks and alternatives of sedation or anesthesia, as well as the names, roles, and responsibilities of the healthcare team members, were discussed with the patient and/or decision maker: yes Procedure / Reason for visit: The planned surgery or procedure was verified with the patient and/ordecision maker The following portions of the patient's history were reviewed and updated as appropriate: allergies, current medications, family history, medical history, surgical history, social history and problemlist. yes Review of systems: pertinent ROS negative Mallampati: IV - only hard palate visible Heart: normal Lung: normal General / Constitutional: generalized obesity ASA physical exam: Class 3 - patient with severe systemic disease Patient seen, evaluated and approved for sedation Sedation plan: moderate sedation Baseline Behavior: Psychosocial (WDL): Within Defined Limits Abdominal Exam: Abdomen Inspection: Soft, Nondistended documented in this encounter Plan of Treatment Upcoming Encounters Date Type Department Care Team (Late st Contact Info) Description 02/20/2024 9:30 AM CDT Comprehensive Visit Department of Neurology in [address] [phone] Jannie Jaquez M.D. [address] [place] [phone] Renetta Kramer M.A., [facility] [address] 02/20/2024 10:00 AM CDT Appointment Department of Radiology, [facility], in [address] [phone] Jannie Jaquez M.D. [address] [place] [phone] Renetta Kramer M.A. [facility] [address] 02/20/2024 10:30 AM CDT Clinical Support Department of Neurology in [address] [address] Jannie Jaquez M.D. [address] [place] [phone] Renetta Kramer M.A., CCC-SUBSTATION DESIGNER [address] [place] [phone] documented as of this encounter Procedures Procedure Name Priority Date/Time Associated Diagnosis Comments SURGICAL PATHOLOGY Routine 02/04/2024 10 :18 AM CDT UPPER GI ENDOSCOPY Routine 02/04/2024 9: 52 AM CDT Primary Malignant Neoplasm Of Prostate (HCC) EGD (ESOPHAGEALGASTRODU ODENOSCOPY) Routine 02/04/2024 9:52 AM CDT Primary Malignant Neoplasm Of Prostate (HCC) documented in this encounter Results * Surgical Pathology (02/04/2024 10:18 AM CDT) [...] performance characteristics were determined by [facility] in a manner consistent with CLIA requirements. [...] Gentile M.D. LAB SURG PATH ORDER DANYA [facility] [address] [place] [address], [facility] [address] [place] [address] * Upper GI Endoscopy (02/04/2024 9:52 AM CDT) 02/04/2024 9:52 AM CDT Impressions [facility] [place] - 02/04/2024 10:28 AM CDT Post-op Diagnoses: ? - Z-line regular, 40 cm from the incisors. ? - Tortuous esophagus. ? - Non-bleeding gastric ulcer with no stigmata of bleeding. Biopsied. ? - Normal examined duodenum. ? - The examination was otherwise normal. ? - Biopsies were taken with a cold forceps for evaluation of eosinophilic ? esophagitis. Narrative [facility] [place] - 02/04/2024 10:28 AM CDT Gonda 9 [...] Jannie Jaquez M.D. GI PROCEDURE ORDER DANYA [facility] documented in this encounter Visit Diagnoses Diagnosis Primary Malignant Neoplasm Of Prostate (HCC) documented in this encounter Administered Medications Inactive Administered Medications - up to 3 most recent administrations Medication Order MAR Action Action Date Dose Rate Site fentaNYL injection (SUBLIMAZE) intravenous, As needed, Starting on Sat02/04/24 at 1010, Intra-Op Given 02/04/2024 10:10 AM CDT 50 mcg fentaNYL injection (SUBLIMAZE) intravenous, As needed, Starting on Sat02/04/24 at 1013, Intra-Op Given 02/04/2024 10:13 AM CDT 25 mcg Lactated Ringer's 75 mL/hr, intravenous, Continuous, Starting on Sat02/04/24 at 1030 New Bag 02/04/2024 10:07 AM CDT 75 mL/hr 75 mL/hr midazolam (PF) injection (VERSED) As needed, Starting on Sat02/04/24 at 1010, Intra-Op Given 02/04/2024 10:10 AM CDT 2 mg midazolam (PF) injection (VERSED) As needed, Starting on Sat02/04/24 at 1013, Intra-Op Given 02/04/2024 10:13 AM CDT 1 mg documented in this encounter Care Teams Elementary Instructional Coach Relationship Specialty Start Date End Date Elsewhere, Pcp PCP - General Internal Medicine 09/06/21 documented as of this encounter
--- OUTSIDE RECORDS SUMMARY | 2024-02-17 20:41 | XMS_ITS | Encounter Summary ---
Author Organization [facility] Address [address] [place] [address] Care Team Providers Care Senior Property Accountant Name Role Phone Elsewhere, Pcp Primary Care Provider Unavailabl e Encounter Details Date Type Department Care Team (Late st Contact Info) Description 01/20/2024 Orders Only Department of Oncology in [place], [place] [address] [place] [address] Rissa Norton, Pharm.D., M.S., R.Ph., [facility] [address] [place] [address] Primary Malignant Neoplasm Of Prostate (HCC) (Primary Dx) Social History Tobacco Use Types Packs/Day Years Used Date Smoking Tobacco: Former Cigarettes 2 11.8 0 09/16/1979 - 07/17/1991 Smokeless Tobacco: Former Snuff Quit: 07/17/1991 Comments:was a heavy smoker. quit cold turkey from all tobacco 1990 Alcohol Use Standard Drinks/Week Comments Not Currently 0 (1 standard drink = 0.6 oz pur e alcohol) quit drinking 2010 [facility] Utilities Answer Date Recorded In [...] often do you attend chur ch or mandaeism services? 1 to 4 times per year 12/21/2022 Do you belong to any clubs o r organizations such as jain groups, unions, fraternal or athletic groups, or [...] heating? Not hard at all 02/24/2023 [facility] - Occupational Stress Questionnaire Answer Date [...] your living situation today? I have a [facility] place to live 01/16/2024 Education Answer Date Recorded What is the highest level of school you have completed or the highest degree you have received? Some college, no degree 12/21/2022 Sex and Gender Information Value Date Recorded Sex Assigned at Male 09/05/2021 9:48 AM BINGO CALLER Gender Identity Male 08/31/2021 8:54 AM BINGO CALLER Sexual Orientation Straight 08/31/2021 8: 54 AM BINGO CALLER documented as of this encounter Plan of Treatment Upcoming Encounters Date Type Department Care Team (Late st Contact Info) Description 02/20/2024 9:30 AM CDT Comprehensive Visit Department of Neurology in [place], [place] [address] [place] [phone] Jannie Jaquez M.D. [address] [place] [phone] Renetta Kramer M.A., [facility] ENGLISH LITERATURE PROFESSOR [address] [place] [phone] 02/20/2024 10:00 AM CDT Appointment Department of Radiology, [facility], in [place], [place] [address] [place] [phone] Jannie Jaquez M.D. [address] [place] [phone] Renetta Kramer M.A., [facility] ENGLISH LITERATURE PROFESSOR [address] [place] [phone] 02/20/2024 10:30 AM CDT Clinical Support Department of Neurology in [place], [place] [address] [place] [phone] Jannie Jaquez M.D. [address] [place] [phone] Renetta Kramer M.A., [facility] [address] [place] [phone] documented as of this encounter Visit Diagnoses Diagnosis Primary Malignant Neoplasm Of Prostate (HCC)- Primary documented in this encounter Care Teams Senior Property Accountant Relationship Specialty Start Date End Date Elsewhere, Pcp PCP - General Internal Medicine 09/06/21 documented as of this encounter
--- OUTSIDE RECORDS SUMMARY | 2024-02-17 20:41 | XMS_ITS | Encounter Summary ---
Author Organization [facility] Address [address] [place] [address] Care Team Providers Care Quick Print Operator Name Role Phone Elsewhere, Pcp Primary Care Provider Unavailabl e Encounter Details Date Type Department Care Team ([facility] st Contact Info) Description 11/11/2023 Orders Only Department of Radiation Oncology in [place], [place] [address] [place] [phone] Jese Zepeda, CUFF STITCHER, C.N.P., D.N.P. [address] [place] [phone] Social History Tobacco Use Types Packs/Day Years Used Date Smoking Tobacco: Former Cigarettes 2 11.8 0 09/16/1979 - 07/17/1991 Smokeless Tobacco: Former Snuff Quit: 07/17/1991 Comments:was a heavy smoker. quit cold turkey from all tobacco 1990 Alcohol Use Standard Drinks/Week Comments Not Currently 0 (1 standard drink = 0.6 oz pur e alcohol) quit drinking 2010 Humiliation, Afraid, Rape, and Kick questionnair e [...] often do you attend chur ch or pentecostalism services? 1 to 4 times per year 12/21/2022 Do you belong to any clubs o r organizations such as baptism groups, unions, fraternal or athletic groups, or [...] and heating? Not hard at all 02/24/2023 [facility] of Occupat ional Health - [...] to strenuous exercise (like a brisk walk)? 1 day 12/21/2022 On average, how many minutes do you engage in exercise at this level? 10 min 12/21/2022 Hunger Vital Sign Answer Date Recorded Within the past 12 months, y ou worried that your food would run out before you got the money to buy more. Never true 02/25/20 23 Within the past 12 months, t he food you bought just didn't last and you didn't have money to get more. Never true 02/24/2023 PRAPARE - Transportation Answer Date Re corded In the past 12 months, has l ack of transportation kept you from medical appointments or from getting medications? No 02/14 In the past 12 months, has l ack of transportation kept you from meetings, work, or from getting things needed for daily living? No 02/24/2023 Nutrition Answer Date Recorded Nutrition: EVOO Fat Source No 12/21 On average, how many serving s of fruits and vegetables do you eat per day (serving size is equal to 1 cup or approximately the size of a tennis ball)? 2-3 12/21/2022 Dental Answer Date Recorded Dental: Regular Dentist Yes 09/05/20 Employment Answer Date Recorded Employment status Retired 12/21/2022 Housing Stability Answer Date Recorded What is your living situation today? I have a [facility] place to live 02/24/2023 Education Answer Date Recorded What is the highest level of school you have completed or the highest degree you have received? Some college, no degree 12/21/2022 Sex and Gender Information Value Date Recorded Sex Assigned at Male 09/05/2021 9:48 AM CUT FILE CLERK Gender Identity Male 08/31/2021 8:54 AM CUT FILE CLERK Sexual Orientation Straight 08/31/2021 8: 54 AM CUT FILE CLERK documented as of this encounter Plan of Treatment Upcoming Encounters Date Type Department Care Team (Late st Contact Info) Description 02/20/2024 9:30 AM CDT Comprehensive Visit Department of Neurology in [place], [place] [address] [place] [phone] Jannie Jaquez M.D. [address] [place] [phone] Renteta Kramer M.A., [facility] [address] [place] [phone] 02/20/2024 10:00 AM CDT Appointment Department of Radiology, [facility], in [place], [place] [address] [place] [phone] Jannie Jaquez M.D. [address] [place] [phone] Renetta Kramer M.A., [facility] [address] [place] [phone] 02/20/2024 10:30 AM CDT Clinical Support Department of Neurology in [place], [place] [address] [place] [phone] Jannie Jaquez M.D. [address] [place] [phone] Renetta Kramer M.A., [facility] [address] [place] [address] [phone] documented as of this encounter Visit Diagnoses Not on filedocumented in this encounter Care Teams Quick Print Operator Relationship Specialty Start Date End Date Elsewhere, Pcp PCP - General Internal Medicine 09/06/21 documented as of this encounter
--- OUTSIDE RECORDS SUMMARY | 2024-02-17 20:41 | XMS_ITS | Encounter Summary ---
Author Organization [facility] Address [address] [place] [address] Care Team Providers Care Senior Dot Net Developer Name Role Phone Elsewhere, Pcp Primary Care Provider Unavailabl e Reason for Visit * Reason Comments Follow-up * Outpatient (Routine) - Closed Specialty Diagnoses / Procedures Referred By Contstewart t Referred To Contact Ophthalmology Michael Prather M.D. [address] [place] [phone] [facility] Referral ID Status Reason Start Date Expiration Date Visits Re quested Visits Authorized [id number] Closed 09/27/2023 09/26/2026 1 1 Encounter Details Date Type Department Care Team (Latest Contact Info) Description 11/20/2023 1:15 PM ASPHALT PAVING MACHINE OPERATOR Office Visit Department of Ophthalmology in [place], [place] [address] [place] [phone] Michael Prather M.D. [address] [place] [phone] Entropion Left (Primary Dx) Social History Tobacco Use Types [...] 12/21/2022 How often do you attend chur or presybeterian services? 1 to 4 times per year 12/21/2022 Do you belong to any clubs o r organizations such as latter-day groups, unions, fraternal or athletic groups, or [...] and heating? Not hard at all 02/24/2023 [facility] of Occupat ional Health - Occupational Stress [...] your living situation today? I have a [facility] place to live 02/24/2023 Education Answer Date Recorded What is the highest level of school you have completed or the highest degree you have received? Some college, no degree 12/21/2022 Sex and Gender Information Value Date Recorded Sex Assigned at Male 09/05/2021 9:48 AM ASPHALT PAVING MACHINE OPERATOR Gender Identity Male 08/31/2021 8:54 AM ASPHALT PAVING MACHINE OPERATOR Sexual Orientation Straight 08/31/2021 8: 54 AM ASPHALT PAVING MACHINE OPERATOR documented as of this encounter Progress Notes * Michael Prather M.D. - 11/20/2023 1:15 PM CST # blind left eye By history, due to trauma. Poor vision all his life. 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 Epiphora resolved with that procedure. # lower left eyelid entropion Doing well after botox 09-27-[address] Vázquez in January Status post chelation and debridment 10/10/2023 Doing well Lower punctal plug is in place Use Valerie ointment prn Rtn ALT PAVING MACHINE OPERATOR documented in this encounter Plan of Treatment Upcoming Encounters Date Type Department Care Team (Late st Contact Info) Description 02/20/2024 9:30 AM CDT Comprehensive Visit Department of Neurology in [address] [phone] Jannie Jaquez M.D. [address] [place] [phone] Renetta Kramer M.A., [facility] [phone] 02/20/2024 10:00 AM CDT Appointment Department of Radiology, [facility], in [address] [phone] Jannie Jaquez M.D. [address] [place] [phone] Renetta Kramer M.A., [facility] [address] [place] [phone] 02/20/2024 10:30 AM CDT Clinical Support Department of Neurology in [address] [phone] Jannie Jaquez M.D. [address] [place] [phone] Renetta Kramer M.A., [facility] [address] [place] [phone] documented as of this encounter Visit Diagnoses Diagnosis Entropion Left- Primary documented in this encounter Care Teams Senior Dot Net Developer Relationship Specialty Start Date End Date Elsewhere, Pcp PCP - General Internal Medicine 09/06/21 documented as of this encounter
--- OUTSIDE RECORDS SUMMARY | 2024-02-17 20:41 | XMS_ITS | Encounter Summary ---
Author Organization [facility] Address [address] [place] [phone] Care Team Providers Care Railroad Inspector Name Role Phone Elsewhere, Pcp Primary Care Provider Unavailabl e Reason for Visit * Reason Onset Date Comments More Catheter 01/17/2024 Encounter Details Date Type Department Care Team ([facility] st Contact Info) Description 01/17/2024 Clinical Communication Department of Urology in [place], [place] [address] [place] [phone] Delta Renteria M.D. [address] [place] [phone] More Catheter Social History Tobacco Use Types Packs/Day Years Used Date Smoking Tobacco: Former Cigarettes 2 11.8 0 09/16/1979 - 07/17/1991 Smokeless Tobacco: Former Snuff Quit: 07/17/1991 Comments:was a heavy smoker. quit cold turkey from all tobacco 1990 Alcohol Use Standard Drinks/Week Comments Not Currently 0 (1 standard drink = 0.6 oz pur e alcohol) quit drinking 2010 [facility] Utilities Answer Date Recorded In the [...] often do you attend chur ch or congregation services? 1 to 4 times per year [...] and heating? Not hard at all 02/24/2023 [facility] [place] of Occupat ional Health - Occupational Stress [...] your living situation today? I have a [facility] place to live 01/16/2024 Education Answer Date Recorded What is the highest level of school you have completed or the highest degree you have received? Some college, no degree 12/21/2022 Sex and Gender Information Value Date Recorded Sex Assigned at Male 09/05/2021 9:[address]ER Gender Identity Male 08/31/2021 8:[address] COMM[address]ER Sexual Orientation Straight 08/31/2021 8: [address] COMM[address]ER documented as of this encounter Miscellaneous Notes * Addendum Note - Mitchel Alba, R.N. - 01/21/2024 11:07 AM CDTAddended by: MITHCEL ALBA on: 01/21/2024 11:07 AM Modules accepted: Orders documented in this encounter Plan of Treatment Upcoming Encounters Date Type Department Care Team (Late st Contact Info) Description 02/20/2024 9:30 AM CDT Comprehensive Visit Department of Neurology in [place], [place] [address] [place] [phone] Jannie Jaquez M.D. [address] [place] [phone] Renetta Kramer M.A., [facility]-INSPECTOR REPAIRER [address] [place] [phone] 02/20/2024 10:00 AM CDT Appointment Department of Radiology, [facility], in [address] [phone] Jannie Jaquez M.D. [address] [place] [phone] Renetta Kramer M.A., [facility]-[address] [phone] 02/20/2024 10:30 AM CDT Clinical Support Department of Neurology in [address] [phone] Janine Jaquez M.D. 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
--- OUTSIDE RECORDS SUMMARY | 2024-02-17 20:41 | XMS_ITS | Encounter Summary ---
Author Organization [facility] Address [address] [place] [address] Care Team Providers Care Environmental Studies Professor Name Role Phone Elsewhere, Pcp Primary Care Provider Unavailabl e Encounter Details Date Type Department Care Team (Late st Contact Info) Description 11/08/2023 Clinical Communication Department of Infusion Therapy in [place], [place] [address] [place] [phone] Yanna Llamas, RReinaldoN. [address] [place] [phone] Social History Tobacco Use Types Packs/Day Years [...] often do you attend chur ch or restoration services? 1 to 4 times per year 12/21/2022 Do you belong to any clubs o r organizations such as episcopalian groups, unions, fraternal or athletic groups, or [...] and heating? Not hard at all 02/24/2023 [facility] [place] of Occupat ional Health - Occupational Stress [...] your living situation today? I have a [facility] place to live 02/24/2023 Education Answer Date Recorded What is the highest level of school you have completed or the highest degree you have received? Some college, no degree 12/21/2022 Sex and Gender Information Value Date Recorded Sex Assigned at Male 09/05/2021 9:48 AM OCEAN EXPORT AGENT Gender Identity Male 08/31/2021 8:54 AM OCEAN EXPORT AGENT Sexual Orientation Straight 08/31/2021 8: 54 AM OCEAN EXPORT AGENT documented as of this encounter Plan of Treatment Upcoming Encounters Date Type Department Care Team (Late st Contact Info) Description 02/20/2024 9:30 AM CDT Comprehensive Visit Department of Neurology in [place], [place] 200 [place] [address] [place] [phone] Renetta Kramer M.A., CCC-ADVERTISING TEACHER [address] [place] [phone] 02/20/2024 10:00 AM CDT Appointment Department of Radiology, [facility], in [place], [place] 200 [place] [phone] Jannie Jaquez M.D. [address] [place] [phone] Renetta Kramer M.A., [facility]-ADVERTISING TEACHER [address] [place] [phone] 02/20/2024 10:30 AM CDT Clinical Support Department of Neurology in [place], [place] [address] [place] [phone] Jannie Jaquez M.D. [address] [place] [phone] Renetta Kramer M.A., [facility]-ADVERTISING TEACHER [address] [place] [phone] documented as of this encounter Visit Diagnoses Not on filedocumented in this encounter Care Teams Environmental Studies Professor Relationship Specialty Start Date End Date Elsewhere, Pcp PCP - General Internal Medicine 09/06/21 documented as of this encounter
--- OUTSIDE RECORDS SUMMARY | 2024-02-17 20:41 | XMS_ITS | Encounter Summary ---
Author Organization 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 [address] [place] [phone] [facility] Referral ID Status Reason Start Date Expiration Date Visits Re quested Visits Authorized [id number] Closed 08/19/2023 08/18/2024 1 1 Encounter Details Date Type Department Care Team (Latest Contact Info) Description 08/26/2023 8:30 AM FURNACE LINER Procedure visit Department of Urology in [place], [place] [address] [place] [phone] Ragini [place] M.D. [address] [place] [phone] Fernanda Rich R.N. 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 1 to 4 times per year 12/21/2022 Do you belong to any clubs o r organizations such as sabianism groups, unions, fraternal or athletic groups, or [...] and heating? Not hard at all 02/24/2023 [facility] [place] of Occupat ional Health - Occupational Stress [...] your living situation today? I have a [facility] place to live 02/24/2023 Education Answer Date Recorded What is the highest level of school you have completed or the highest degree you have received? Some college, no degree 12/21/2022 Sex and Gender Information Value Date Recorded Sex Assigned at Male 09/05/2021 9:48 AM FURNACE LINER Gender Identity Male 08/31/2021 8:54 AM FURNACE LINER Sexual Orientation Straight 08/31/2021 8: 54 AM FURNACE LINER documented as of this encounter Progress Notes * Fernanda Rich R.N. - 08/26/2023 8:30 AM CST CHIEF COMPLAINT Reason for visit, urinary catheter removal post: uretheral dilation by Dr. Enrique Jaime on August 19, 2023. IMPRESSION/REPORT/PLAN Nursing Intervention: Patient instilled with 50 mL's sterile normal saline prior to catheter removal. Patient had a bladder spasm, which pushed all the fluid out. PVR =0 ml. Patient tolerated procedure well. Patient education: use of incontinence pads and leakage of urine , to push fluids , hematuria , burning with urination , increased frequency/urgency , to urinate 1 more times before leaving the clinic and if they urinate to their satisfaction they may leave , to urinate often , to complete the antibiotic Cefdinir, to stop the medication trospium, and to return to clinic if having voiding issues if before 4PM, if after hours to report to their local emergency room if unable to void Patient politely declined demonstration of CIC/dilation. He was previously doing CIC. He was instructed on schedule of daily for 1 week, every other days for 2 weeks, every 3rd day for 3 weeks and every 4th day for 1 month. Patient is already scheduled for a return visit with Dr. Renteria and Cystoscopy on 11/12. Dr. Renteria business card was given to patient and instructed patient to call with any questions or concerns. Rx [id number] coude tip catheters (per sx ) sent down to [facility] ACE LINER documented in this encounter Plan of Treatment Upcoming Encounters Date Type Department Care Team (Late st Contact Info) Description 02/20/2024 9:30 AM CDT Comprehensive Visit Department of Neurology in [place], [place] [address] [place] [phone] Jannie Jaquez M.D. [address] [place] [phone] Renetta Kramer M.A., [facility]-SOFTWARE SALES REPRESENTATIVE [address] [place] [phone] 02/20/2024 10:00 AM CDT Appointment Department of Radiology, [facility], in [place], [place] [address] [place] [phone] Jannie Jaquez M.D. [address] [place] [phone] Renetta Kramer M.A., [facility] [address] [place] [phone] 02/20/2024 10:30 AM CDT Clinical Support Department of Neurology in [place], [place] [address] [place] [phone] Jannie Jaquez M.D. 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
--- OUTSIDE RECORDS SUMMARY | 2024-02-17 20:41 | XMS_ITS | Encounter Summary ---
Author Organization [facility] Address [address] [place] [address] Care Team Providers Care Chainstitch Hemmer Name Role Phone Elsewhere, Pcp Primary Care Provider Unavailabl e Reason for Visit * Outpatient (Routine) - Closed Specialty Diagnoses / Procedures Referred By Judy love Referred To Contact Urology Diagnoses Symptom Urinary Sax-Jolynn Duffy M.D. [address] [place] [phone] Delta Renteria M.D. [address] [place] [phone] Referral ID Status Reason Start Date Expiration Date Visits Re quested Visits Authorized [id number] Closed 08/21/2023 08/20/2026 1 1 Encounter Details Date Type Department Care Team (Latest Contact Info) Description 11/12/2023 11:00 AM GAS ENGINE OPERATOR COMPRESSORS Office Visit Department of Urology in [place], [place] [address] [place] [phone] Delta Renteria M.D. [address] [place] [phone] Stricture Urethral Postoperative Male (Primary Dx); Symptom Urinary; Primary Malignant Neoplasm Of Prostate (HCC) Social History Tobacco Use Types Packs/Day Years [...] often do you attend chur ch or bahai services? 1 to 4 times per year 12/21/2022 Do you belong to any clubs o r organizations such as pentecostal groups, unions, fraternal or athletic groups, or [...] and heating? Not hard at all 02/24/2023 [facility] of Occupat ional Health - Occupational Stress [...] money to buy more. Never true 02/25/20 Within the past 12 months, t he [...] your living situation today? I have a [facility] place to live 02/24/2023 Education Answer Date Recorded What is the highest level of school you have completed or the highest degree you have received? Some college, no degree 12/21/2022 Sex and Gender Information Value Date Recorded Sex Assigned at Male 09/05/2021 9:48 AM GAS ENGINE OPERATOR COMPRESSORS Gender Identity Male 08/31/2021 8:54 AM GAS ENGINE OPERATOR COMPRESSORS Sexual Orientation Straight 08/31/2021 8: 54 AM GAS ENGINE OPERATOR COMPRESSORS documented as of this encounter Progress Notes * Pari Cam APRN, C.N.P., D.N.P. - 11/12/2023 11:00 AM CST SUBJECTIVE REFERRAL SOURCE: The patient is being seen in consultation at the request of Jolynn Don M.D. [address] [place] [phone] HISTORY OF PRESENT ILLNESS Mr. Rider is a pleasant 73 y.o. male who presents today for follow-up. His prostate cancer history is as follows and nicely outlined in my services earlier note this month: He has a history of Zaria 9 intraductal prostate cancer status post radiation in January 2022, currently on ADT plus amiodarone therapy with plan for 2 year combined abiraterone therapy in 3 years total of Lupron therapy. 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 He notes ever since radiation, he has noted persistent urinary frequency, urgency and urge incontinence. Of note, he did have an episode of gross hematuria and underwent evaluation with cystoscopy and CT urogram back in March 2023. He noted some improvement in the urinary stream immediately after this cystoscopy but is now back to baseline slow flow. This was negative for malignancy. His cystoscopy diddemonstrate a bulbar urethral stricture which was soft and easily passed with the flexible cystoscope, estimated to be at 8-10 Georgian. The prostate was moderately obstructive. He was previously prescribed trospium 20 mg daily for his urinary urgency, this caused what sounds like overflow incontinence. He was last seen in June of 2023, UDS at this time showed that he empties to completion with a very slow stream, detrusor contraction is hypocontractile, with detrusor overactivity as well as he is filling. These findings are likely related to significant radiation changes with in the prostatic urethra and bulbar urethra. Underwent a urethral dilation in August of 2023. Today he returns for follow-up s/p urethral dilation in August 2023. Past medical history is notable for comorbidities including hypertension, CAD (S/P 3x AVELINO in 2016),hyperlipidemia, bilateral cataracts, and well-controlled type 2 diabetes mellitus (HbA1c 5.9 % in September 2022, on metformin only). He is not on any anticoagulation. His most recent PSA is undetectable. He reports burning with urination since end of September. He is currently self catheterizing once every 5 days. Denies any difficulty emptying his bladder, gross hematuria, or any constitutional symptoms. He has been pleased with his results since his dilation. Cystoscopy today consistent with stricture disease. CURRENT MEDICATIONS Current Outpatient Medications: amLODIPine (NORVASC) 2.5 mg tablet, Take 2.5 mg by mouth every morning. , Disp: , Rfl: 2 atorvastatin (LIPITOR) 40 mg tablet, Take 1 tablet by mouth at bedtime., Disp: , Rfl: calcium citrate-vitamin D3 (CITRACAL+D) 315 mg-5 mcg (200 Unit) per tablet, Take 2 tablets by mouth2 (two) times a day with meals., Disp: , Rfl: clindamycin (CLEOCIN T) 1 % lotion, Apply 1 Application topically once as needed (rosacea)., Disp: , Rfl: clotrimazole-betamethasone (LOTRISONE) 1-0.05 % cream, 1 Application as needed., Disp: , Rfl: cyanocobalamin (VITAMIN B12) 1,000 mcg tablet, Take 1,000 mcg by mouth daily., Disp: , Rfl: DME Urological supplies, DME Order, Disp: 1 Unspecified, Rfl: 0 fexofenadine (CRISTINA) 180 mg tablet, Take 180 mg by mouth daily as needed for allergies., Disp: , Rfl: iron,carbonyl-vitamin C (VITRON-C) 65 mg iron- [address] tablet, Take 65 mg of iron by mouth every other day. Do not crush or chew., Disp: , Rfl: losartan (COZAAR) 25 mg tablet, Take 1 tablet by mouth every morning. , Disp: , Rfl: metoprolol succinate (TOPROL-XL) 100 mg 24 hr tablet, Take 100 mg by mouth every morning. , Disp: ,Rfl: Valerie 128 5 % ophthalmic ointment, Apply to left eye., Disp: , Rfl: nitroglycerin (NITROSTAT) 0.4 mg SL tablet, Place 0.4 mg under the tongue every 5 (five) minutes asneeded., Disp: , Rfl: psyllium (METAMUCIL) 0.52 gram capsule, Take 0.52 g by mouth 2 (two) times a day., Disp: , Rfl: raNITIdine (ZANTAC) 150 mg tablet, Take 150 mg by mouth daily as needed for heartburn., Disp: , Rfl: tamsulosin (FLOMAX) 0.4 mg 24 hr capsule, Take 1 capsule (0.4 mg total) by mouth daily. (Patient taking differently: Take 0.4 mg by mouth at bedtime.), Disp: 60 capsule, Rfl: 1 Current Facility-Administered Medications: onabotulinumtoxinA injection 50 Units (BOTOX COSMETIC), 50 Units, injection, Once, Maria T Vázquez M.D. ALLERGIES / CONTRAINDICATIONS Allergies Allergen Reactions Adhesive Rash Use paper tape Ibuprofen GI bleeding Nsaids (Non-Steroidal Anti-Inflammatory Drug) Other (see comments) REVIEW OF SYSTEMS This past weekend he visited the ER in [place] where a urinalysis was obtained and there was no evidence of infection. He was given Pyridium. This is not had much impact on his discomfort. 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 08/16/2023 Unsteadiness Gait Disorder Non Orthopedic 07/22/2023 Radiation Therapy Proctitis 12/05/2022 Injury Radiation Therapy Initial 12/05/2022 Primary Malignant Neoplasm Of Prostate (HCC) 10/30/2021 Myocardial Infarction Old 09/11/2021 Smoking Tobacco Use Personal History 09/11/2021 Diabetes Mellitus Type 2 Without Complication (HCC) 08/29/2021 Feeling Of Incomplete Bladder Emptying 08/23/2021 Regurgitation Aortic 07/20/2019 Apnea Sleep Obstructive 07/20/2019 Hypertension Essential Primary 12/02/2015 Hyperlipidemia 12/02/2015 Coronary Artery 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 11/03/2015 Past Medical History: Diagnosis Date Amblyopia Bilateral Anemia 07/20/2019 Apnea Sleep Obstructive wears cpap BenignProstatic Hyperplasia Localized 2020 Cardiac Disease CAD, stents X3 2015 Cataract 2021 Concussion Loss Of Consciousness Unspecified Duration Initial 1994 Diabetes Mellitus NOS Elevated Prostate-Specific Antigen Gallbladder Disorder 1984 Gastroesophageal Reflux Disease NOS Hyperlipidemia Hypertension NOS Irritable Bowel Syndrome Without Diarrhea 1999 Nodule Prostate Non-ST Elevation Myocardial Infarction (HCC) 2015 Other Specified Health Status blind left eye Primary Malignant Neoplasm Of Prostate (HCC) 2020 Retinal Disorder SURGICAL HISTORY Past Surgical History: Procedure Laterality Date APPENDECTOMY [...] INTRAOCULAR LENS IMPLANTATION Right 02/16/2022 VASECTOMY 1987 SOCIAL HISTORY Social History Socioeconomic History Marital status: Spouse name: Not on file Number of children: Not on file Years of education: Not on file Highest education level: Some college, no degree Occupational History Not on file Tobacco Use Smoking status: Former Packs/day: 2.00 Years: 6.00 Additional pack years: 0.00 Total pack years: 12.00 Types: Cigarettes Start date: 09/16/1979 Quit date: 07/17/1991 Years since quittin.3 Smokeless tobacco: Former Types: Snuff Quit date: 07/17/1991 Tobacco comments: was a heavy smoker. quit cold turkey from all tobacco 1990 Vaping Use Vaping Use: never used Substance and Sexual Activity Alcohol use: Not Currently Comment: quit drinking 2010 Drug use: Never Sexual activity: Not Currently Partners: Female control/protection: Vasectomy Other Topics Concern Caffeine Concern Yes Comment: 1 soda per day Social History Narrative Not on file Social Determinants of Health Food Insecurity: No Food Insecurity (02/24/2023) Hunger Vital Sign Worried About Running Out of Food in the Last Year: Never true Ran Out of Food in the Last Year: Never true Transportation Needs: No Transportation Needs (02/24/2023) PRAPARE - Transportation Lack of Transportation (Medical): No Lack of Transportation (Non-Medical): No Physical Activity: Insufficiently Active (12/21/2022) Exercise Vital Sign Days of Exercise per Week: 1 day Minutes of Exercise per Session: 10 min Intimate Partner Violence: Not At Risk (02/24/2023) Humiliation, Afraid, Rape, and Kick questionnaire Fear of Current or Ex-Partner: No Emotionally Abused: No Physically Abused: No Sexually Abused: No Housing Stability: Low Risk (02/24/2023) Housing Stability Housing: Living Situation: I have a steady place to live FAMILY HISTORY Family History Problem Relation Age of Onset Other cancer Mother Cervical Hypertension Mother Hyperlipidemia Mother Coronary artery disease Mother Prostate cancer Father Coronary artery disease Sister 60 stenting Prostate cancer Brother Coronary artery disease Brother 65 stenting Liver disease Brother Rcvd transplant Alcohol abuse Brother Drug abuse Son Drug abuse Son OBJECTIVE PHYSICAL EXAMINATION General: NAD Mental status: AAOx3 Psychiatric: Appropriate disposition HEENT: NCAT, conjugate gaze Respiratory: Non-labored breathing Cardiovascular: upper extremities warm Musculoskeletal: Moves all 4 extremities Skin: No visible rashes Neurologic: Intact sensation to the upper extremities DIAGNOSTICS LABS: Lab Results Component Value Date NA 140 10/30/2023 CL 102 10/30/2023 BUN 20 10/30/2023 HGB 10.4 (L) 10/30/2023 HCT 32.0 (L) 10/30/2023 WBC 4.6 10/30/2023 Lab Results Component Value Date/Time CREATININE 1.51 (H) 10/30/2023 07:21 AM CREATININE 1.18 07/02/2023 01:57 PM CREATININE 1.16 06/05/2023 07:25 AM CREATININE 1.10 03/05/2023 11:11 AM CREATININE 1.01 11/28/2022 10:12 AM CREATININE 1.34 06/25/2022 07:53 AM CREATININE 1.23 02/27/2022 12:56 PM CREATININE 1.10 02/20/2022 10:34 AM CREATININE 1.02 02/13/2022 01:01 PM Lab Results Component Value Date/Time PSA <0.10 10/30/2023 07:21 AM PSA <0.10 07/02/2023 01:57 PM PSA <0.10 06/05/2023 07:25 AM PSA <0.10 11/28/2022 10:09 AM PSA <0.10 06/25/2022 07:53 AM PSA 3.1 12/18/2021 06:30 AM PSA 5.6 (H) 08/21/2021 01:15 PM IMAGING AND TESTS: Procedural findings: There was meatal stenosis which required meatal dilator. This was passed and he was given this to do this on his own with the instructions as well as RADHA puente. Once this was done the anterior was normal. The membranous urethra shows scarring and previous evidence of radiation therapy but the channel is open. This is in the region of the verumontanum. There was blanching of the prostate consistentwith radiation changes. The bladder was entered found be free of abnormalities. On retroflexed viewof the bladder neck has some telangiectasia consistent with radiation changes Impression Stricture disease managed by the intermittent catheterization. ASSESSMENT / PLAN #1 Stricture Urethral Postoperative Male #2 Symptom Urinary Plan-recommendations: Instructed on the use of the meatal dilator. He will also continue on 3 times a week catheterization to keep his strictures open. As well as meatal dilation as instructed by Dr. Renteria. He had excellent ability to empty and he is happy with the results since his dilatation. We will plan for follow up as needed. ENGINE OPERATOR COMPRESSORS Associated attestation - Delta Renteria M.D. - 11/13/2023 9:18 AM GAS ENGINE OPERATOR COMPRESSORS I have personally reviewed the past medical history, pertinent review of systems and physical exam.I have met with and evaluated the patient. I have discussed the case with my clinical team and I agree with the plan and action as outlined by my team. We have discussed management of his strictures and he will fu with Dr. Muñoz and [facility] for his management of ADT and treatments for prostate ca. * Fernanda Rich, R.N. - 11/12/2023 11:00 AM CST Updated patients catheters for dilation 3 times a week. On prescription it mentions daily but patient understands Dr. Renteria recommends three times per week. Patient understands to refill his catheters when needed. Prescription sent to [facility]. ENGINE OPERATOR COMPRESSORS documented in this encounter Plan of Treatment Upcoming Encounters Date Type Department Care Team (Late st Contact Info) Description 02/20/2024 9:30 AM CDT Comprehensive Visit Department of Neurology in [place], [place] [address] [place] [phone] Jannie Jaquez M.D. [address] [place] [phone] Renetta Kramer M.A., [facility]-[employer] INCIDENT RESPONDER [address] [place] [phone] 02/20/2024 10:00 AM CDT Appointment Department of Radiology, [facility], in [address] [phone] Jannie Jaquez M.D. [address] [place] [phone] Renetta Kramer M.A., [facility]-[employer] RESPONDER [address] [place] [phone] 02/20/2024 10:30 AM CDT Clinical Support Department of Neurology in [address] [phone] Jannie Jaquez M.D. [address] [place] [phone] Renetta Kramer M.A., [facility]-[employer] INCIDENT RESPONDER [address] [place] [phone] documented as of this encounter Visit Diagnoses Diagnosis Stricture Urethral Postoperative Male- Primary Symptom Urinary Primary Malignant Neoplasm Of Prostate (HCC) documented in this encounter Care Teams Chainstitch Hemmer Relationship Specialty Start Date End Date Elsewhere, Pcp PCP - General Internal Medicine 09/06/21 documented as of this encounter
--- OUTSIDE RECORDS SUMMARY | 2024-02-17 20:41 | XMS_ITS | Encounter Summary ---
Author Organization [facility] Address [address] [place] [address] Care Team Providers Care Inspector Metal Can Name Role Phone Elsewhere, Pcp Primary Care Provider Unavailabl e Reason for Visit * Reason Comments Injections Eligard * Episode Based Medications (Routine) - Authorized Specialty Diagnoses / Procedures Referred By Contac t Referred To Contact Diagnoses Primary Malignant Neoplasm Of Prostate (HCC) Procedures NV LEUPROLIDE ACETATE SUSPNSION Jese Zepeda, TAMIA, C.N.P., D.N.P. [address] [place] [phone] Rst Freddie Helm [address] [place] [phone] Referral ID Status Reason Start Date Expiration Date V isits Requested Visits Authorized [id number] Authorized 11/22/2021 09/15/2024 99 99 Encounter Details Date Type Department Care Team (Late st Contact Info) Description 11/12/2023 12:00 PM GLUING MACHINE OPERATOR AUTOMATIC Infusion Department of Infusion Therapy in [place], [place] [address] [place] [phone] Redd Dodd M.D. [address] [place] [phone] Primary Malignant Neoplasm Of Prostate (HCC) (Primary [...] often do you attend chur ch or mandaen services? 1 to 4 times per year 12/21/2022 Do you belong to any clubs o r organizations such as anabaptist groups, unions, fraternal or athletic groups, or [...] heating? Not hard at all 02/24/2023 [facility] of Occupat ional Health - [...] living situation today? I have a [facility] place to live 02/24/2023 Education Answer Date Recorded What is the highest level of school you have completed or the highest degree you have received? Some college, no degree 12/21/2022 Sex and Gender Information Value Date Recorded Sex Assigned at Male 09/05/2021 9:48 AM GLUING MACHINE OPERATOR AUTOMATIC Gender Identity Male 08/31/2021 8:54 AM GLUING MACHINE OPERATOR AUTOMATIC Sexual Orientation Straight 08/31/2021 8: 54 AM GLUING MACHINE OPERATOR AUTOMATIC documented as of this encounter Last Filed Vital Signs Vital Sign Reading Time Taken Comments Blood Pressure 144/57 11/12/2023 12:13 PM GLUING MACHINE OPERATOR AUTOMATIC Pulse 62 11/12/2023 12:13 PM GLUING MACHINE OPERATOR AUTOMATIC Temperature 36.3 ??C (97.3 ??F) 11/12/2023 12:[address] Respiratory Rate 18 11/12/2023 12:13 PM GLUING MACHINE OPERATOR AUTOMATIC Oxygen Saturation - - Inhaled Oxygen Concentration - - Weight - - Height - - Body Mass Index - - documented in this encounter Plan of Treatment Upcoming Encounters Date Type Department Care Team (Late st Contact Info) Description 02/20/2024 9:30 AM CDT Comprehensive Visit Department of Neurology in [address] [phone] Jannie Jaquez M.D. [address] [place] [phone] Renetta Kramer M.A., [facility] [phone] 02/20/2024 10:00 AM CDT Appointment Department of Radiology, [facility], in [address] [phone] Jannie Jaquez M.D. [address] [place] [phone] Renetta Kramer M.A., [facility] [phone] 02/20/2024 10:30 AM CDT Clinical Support Department of Neurology in [address] [phone] Jannie Jaquez M.D. [address] [place] [phone] Renetta Kramer M.A., [facility] [address] [place] [phone] documented as of this encounter Visit Diagnoses Diagnosis Primary Malignant Neoplasm Of Prostate (HCC)- Primary documented in this encounter Administered Medications Inactive Administered Medications - up to 3 most recent administrations Medication Order MAR Action Action Date Dose Rate Site leuprolide injection 45 mg (ELIGARD 6 MONTH) 45 mg, subcutaneous, Once, On Sat11/12/23 at 1230, For 1 dose Given 11/12/2023 12:30 PM GLUING MACHINE OPERATOR AUTOMATIC 45 mg Left Lower Abdomen documented in this encounter Care Teams Inspector Metal Can Relationship Specialty Start Date End Date Elsewhere, Pcp PCP - General Internal Medicine 09/06/21 documented as of this encounter
--- OUTSIDE RECORDS SUMMARY | 2024-02-17 20:41 | XMS_ITS | Encounter Summary ---
Author Organization [facility] Address [address] [place] [address] Care Team Providers Care Dispatch Specialist Name Role Phone Elsewhere, Pcp Primary Care Provider Unavailabl e Reason for Visit * Reason Onset Date Comments Catheter Questions 10/09/2023 Encounter Details Date Type Department Care Team (Latest Contact Info) Description 10/09/2023 Clinical Communication Department of Urology in [place], [place] [address] [place] [phone] Delta Renteria M.D. [address] [place] [phone] Catheter Questions Social History Tobacco Use Types Packs/Day Years [...] often do you attend chur ch or zoroastrian services? 1 to 4 times per year [...] and heating? Not hard at all 02/24/2023 [facility] of Occupat ional Health - Occupational [...] your living situation today? I have a [facility] place to live 02/24/2023 Education Answer Date Recorded What is the highest level of school you have completed or the highest degree you have received? Some college, no degree 12/21/2022 Sex and Gender Information Value Date Recorded Sex Assigned at Male 09/05/2021 9:48 AM BIODIESEL PROCESS CONTROL TECHNICIAN Gender Identity Male 08/31/2021 8:54 AM BIODIESEL PROCESS CONTROL TECHNICIAN Sexual Orientation Straight 08/31/2021 8: 54 AM BIODIESEL PROCESS CONTROL TECHNICIAN documented as of this encounter Plan of Treatment Upcoming Encounters Date Type Department Care Team (Late st Contact Info) Description 02/20/2024 9:30 AM CDT Comprehensive Visit Department of Neurology in [place], [place] 200 [place] [phone] [place] [phone] Renetta Kramer M.A., [facility]-GLASS ROBOT OPERATOR [address] [place] [phone] 02/20/2024 10:00 AM CDT Appointment Department of Radiology, [facility], in [place], [place] 200 [place] [phone] Jannie Jaquez M.D. [address] [place] [phone] Renetta Kramer M.A., [facility]-GLASS ROBOT OPERATOR [address] [place] [phone] 02/20/2024 10:30 AM CDT Clinical Support Department of Neurology in [place], [place] [address] [place] [phone] Jannie Jaquez M.D. [address] [place] [phone] Renetta Kramer M.A., [facility]-GLASS ROBOT OPERATOR [address] [place] [phone] documented as of this encounter Visit Diagnoses Not on filedocumented in this encounter Care Teams Dispatch Specialist Relationship Specialty Start Date End Date Elsewhere, Pcp PCP - General Internal Medicine 09/06/21 documented as of this encounter
--- OUTSIDE RECORDS SUMMARY | 2024-02-17 20:41 | XMS_ITS | Encounter Summary ---
Author Organization [facility] Address [address] [place] [address] Care Team Providers Care Production Material Coordinator Name Role Phone Elsewhere, Pcp Primary Care Provider Unavailabl e Reason for Referral * Outpatient (Routine) - Closed Specialty Diagnoses / Procedures Referred By Judy love Referred To Contact Diagnoses Primary Malignant Neoplasm Of Prostate (HCC) Procedures EGD (EsophagealGastroDuodenoscopy ) Jannie Jaquez M.D. [address] [place] [phone] [facility] Referral ID Status Reason Start Date Expiration Date Visits Re quested Visits Authorized [id number] Closed 01/21/2024 01/20/2025 1 1 * Outpatient (Routine) - Closed Specialty Diagnoses / Procedures Referred By Judy love Referred To Contact Diagnoses Primary Malignant Neoplasm Of Prostate (HCC) Procedures US Kidneys Bilateral with Bladder Jannie Jaquez M.D. [address] [place] [phone] [facility] Referral ID Status Reason Start Date Expiration Date Visits Re quested Visits Authorized [id number] Closed 01/21/2024 01/20/2025 1 1 * Outpatient (Routine) - Authorized Specialty Diagnoses / Procedures Referred By Judy t Referred To Contact Oncology Jannie Jaquez M.D. [address] [place] [phone] [facility] Referral ID Status Reason Start Date Expiration Date V isits Requested Visits Authorized [id number] Authorized 01/21/2024 07/22/2025 1 1 Reason for Visit * Outpatient (Routine) - Closed Specialty Diagnoses / Procedures Referred By Judy love Referred To Contact Oncology Higinio Kelly M.D. [address] [place] [phone] [facility] Referral ID Status Reason Start Date Expiration Date Visits Re quested Visits Authorized [id number] Closed 10/30/2023 04/30/2025 1 1 Encounter Details Date Type Department Care Team (Late st Contact Info) Description 01/21/2024 1:30 PM CDT Office Visit Division of Hematology in [place], [place] [address] [place] [phone] Jannie Jaquez M.D. [address] [place] [phone] Primary Malignant Neoplasm Of Prostate (HCC) (Primary Dx); Dysphagia; Failure Renal Acute (Acute Kidney Injury) (HCC) Social History Tobacco Use Types Packs/Day Years Used Date Smoking Tobacco: Former Cigarettes 2 11.8 0 09/16/1979 - 07/17/1991 Smokeless Tobacco: Former Snuff Quit: 07/17/1991 Tobacco Cessation:Counseling Given: Not Answered Comments:was a heavy smoker. quit cold turkey from all tobacco 1990 Alcohol Use Standard Drinks/Week Comments Not Currently 0 (1 standard drink = 0.6 oz pur e alcohol) quit drinking 2010 [facility] Utilities Answer Date Recorded In the past 12 months has th e electric, gas, oil, or water company [...] often do you attend chur ch or christianity services? 1 to 4 times per year 12/21/2022 Do you belong to any clubs o r organizations such as sikh groups, unions, fraternal or athletic groups, or [...] and heating? Not hard at all 02/24/2023 [facility] [place] of Occupat ional Health - Occupational Stress [...] your living situation today? I have a [facility] place to live 01/16/2024 Education Answer Date Recorded What is the highest level of school you have completed or the highest degree you have received? Some college, no degree 12/21/2022 Sex and Gender Information Value Date Recorded Sex Assigned at Male 09/05/2021 9:48 AM CONSUMER MARKETING MANAGER Gender Identity Male 08/31/2021 8:54 AM CONSUMER MARKETING MANAGER Sexual Orientation Straight 08/31/2021 8: 54 AM CONSUMER MARKETING MANAGER documented as of this encounter Last Filed Vital Signs Vital Sign Reading Time Taken Comments Blood Pressure 146/70 01/21/2024 1:17 PM CDT Pulse 88 01/21/2024 1:17 PM CDT Temperature 36 ??C (96.8 ??F) 01/21/2024 1:17 PM CDT Respiratory Rate 16 01/21/2024 1:17 PM CDT Oxygen Saturation 98% 01/21/2024 1:17 PM CDT Inhaled Oxygen Concentration - - Weight 98.3 kg (216 lb 11.4 oz) 01/21/2024 1:17 PM CDT Height 175.9 cm (5' 9.25) 01/21/2024 1:17 PM CD T Body Mass Index 31.77 01/21/2024 1:17 PM CDT documented in this encounter Progress Notes * Jannie Jaquez M.D. - 01/21/2024 1:30 PM CDT SUBJECTIVE PRIMARY [place] ONCOLOGIST Dr. Fareed Jaquez Staffed with Dr. Hernandez REASON FOR CONSULT Bora Rider is a 73 y.o. male who presents for follow-up of T3b prostate cancer, very high risk, s/p radiotherapy, on ADT (abiraterone from January 2022 - May 2023)- currently on Lupron. HISTORY OF PRESENT ILLNESS Oncology History Oncology History Overview Note 1. August 2021: Family history of prostate carcinoma, his father and brother. He was noted to have a palpable nodule in the left lobe of the prostate. 2. August 21, 2021: PSA was 5.6. On trust, his prostate volume was 67.5 cc. 3. August 23, 2021: Postvoid residual was 22 cc on ultrasound 4. August 24, 2021: MRI prostate. On the MRI, his prostate volume was 63 cc. There was a PI-RADS 5lesion, measuring 3 x 0.8 x 3 cm in the left posterior medial peripheral zone at midgland, extending from the base to the apex. There was capsular penetration with highly suspicious extracapsular extension. The lesion extended to the base of the left seminal vesicles. There was loss of normal fat plane between the lesion and anterior rectal wall, but no definite extension into the rectal wall. There was no suspicious pelvic lymphadenopathy or bone metastasis in the visualized bones. 5. September 13, 2021: A transperineal, MRI fusion, prostate biopsy. The biopsy of the target lesionin the left peripheral zone revealed adenocarcinoma with [place] score 4+5, involving 6 of 6 cores.There was intraductal carcinoma and perineural invasion, but no extraprostatic tumor extension. Thesystemic biopsy of the right lobe revealed adenocarcinoma with Raf score 4+5 (right posterior medial apex) and [place] score 4+3 (right posterior medial base), involving 2 of 6 cores. The systemic biopsy of the left lobe revealed adenocarcinoma with Raf score 4+3 (left posterior medial apex, left posterior medial base, and left posterior lateral apex), involving 3 of 6 cores. 6. October 23, 2021: Bone scan showed no clear evidence of bone metastasis. 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 7. November 03, 2021: He had PSMA PET-CT scan. It showed active tracer uptake in the prostate, consistent with malignancy. However, there was no evidence of lymph node or distant metastasis. 8. November 09, 2021: Received loading dose degarelix (240 mg). 9. December 07, 2021: Bone density scan showed no evidence of osteopenia or osteoporosis. Six-month leuprolide injection initiated. Primary Malignant Neoplasm Of Prostate (HCC) 01/01/2022 - 02/02/2022 Radiation Therapy Radiation Therapy Treatment Details (01/01/2022 - 02/02/2022) Sites: Prostate, Bilateral Pelvis Technique: IMRT Goal: Curative Planned Treatment Start Date: 01/01/2022 INTERVAL HISTORY: Mr. Rider presents today with his . Since discontinuation of the abiraterone, he feels markedly improved. PSA has remained undetectable. His overall condition has improved, weight has stabilized, and he is working on gaining back his strength. He does note issues with dysphagia that have been present for the past 6 months. He states that food feels like it gets stuck in his lower neck, now occurring on a daily basis. This is only present with solid food. Many times, he will choke until he can get the food back up. He denies odynophagia, GERD symptoms, or weight loss. He did have urethral stricture (post-radiotherapy) and is following closely with urology team for this. He is currently using a meatal dilator and self catheterizing three times a week to keep strictures open. He is working with PT regularly for cancer rehab as well as now pelvic floor given the urethral stricture and urinary retention. He is also being managed closely by his ophthalmology team as noted. He reports urinating well and denies dysuria or kimi hematuria, with the exception of immediately following self catheterization REVIEW OF SYSTEMS All other systems reviewed and are negative. OBJECTIVE BP 146/70 (BP Location: Right arm) Pulse 88 Temp 36 ??C (Tympanic) Resp 16 Ht 175.9 cm Wt98.3 kg SpO2 98% BMI 31.77 kg/m?? PHYSICAL EXAM ECOG 1-2 General: no acute distress, ambulating HEENT: atraumatic, no scleral icterus, no palpable lymphadenopathy Cardiac: regular rate, no peripheral edema Lungs: CTAB, no wheezes or coughing, nonlabored on room air Abdomen: soft, non-tender, nondistended, no CVA tenderness Neuro: alert and oriented, ambulating LABORATORY DATA Lab data reviewed. Recent Results (from the past 72 hour(s)) PSA (Prostate-Specific Antigen), Diagnostic Collection Time: 01/20/24 8:34 AM Result Value Prostate-Specific Ag <0.10 CBC with Differential, Blood Collection Time: 01/20/24 8:34 AM Result Value Hemoglobin 11.8 (L) Hematocrit 35.7 (L) Erythrocytes 3.90 (L) MCV 91.5 RBC Distrib Width 13.4 Platelet Count 164 Leukocytes 4.5 Neutrophils 3.21 Lymphocytes 0.72 (L) Monocytes 0.29 Eosinophils 0.27 Basophils <0.04 Basic Metabolic Panel Collection Time: 01/20/24 8:34 AM Result Value Potassium, P 4.9 Sodium, P 140 Chloride, P 102 Bicarbonate, P 25 Anion Gap, P 13 BUN (Blood Urea Nitrogen), P 31 (H) Creatinine 1.69 (H) Estimated GFR (eGFR) 43 (L) Calcium, Total, P 9.2 Glucose, P 227 (H) RADIOLOGICAL DATA Radiology data reviewed. ASSESSMENT / PLAN #High risk T3b, raf 9 adenocarcinoma prostate #Hyperglycemia Mr. 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 Dodd completed 02/02/2022, now on ADT (abiraterone from January 2022 - May 2023). Initial plan was for 2 y abiraterone therapy and 3 y Lupron, however abiraterone was discontinued in May 2023 dueto progressive severe muscle weakness, deconditioning, and cognitive slowing. Additional past medical history is notable for comorbidities including hypertension, CAD (S/P 3x AVELINO in 2016), hyperlipidemia, bilateral cataracts, and type 2 diabetes mellitus. Fortunately, he is not complaining of new symptoms concerning for progression of disease. PSA remains undetectable today. He last received leuprolide 11/12/2023, plan to continue every 6 months this through January 2025 (3 years) with next dose due in April, orders signed today. We discussed the importance of close follow-up with PCP for management of cardiovascular risk factors with aggressive management of HTN, HLD, and DM, along with good diet and exercise given increasedrisk for of CV events while on leuprolide. We also discussed maintaining bone health with appropriated Vitamin D/Ca supplementation. Plan: - He will return in 3-4 months for repeat PSA, clinical exam, and leuprolide injection (plan on continuing lupron q6m through January 2025). - He is working closely with urology regarding urethral stricture and urinary retention. #Normocytic Anemia Patient continues to have mild anemia, improved to 11.8 today. It was suspected that this could be due to iron deficiency and therefore oral iron therapy was increased by prior provider. We will planto check a ferritin level at next visit. Prior testing include B12 elevated, FA wnl. Anemia could also be due to ongoing microscopic losses (hematuria, radiation proctitis) vs anemia of chronic disease. It is also possible this could be in the setting of leuprolide. Per patient, he did have a colonoscopy Sep 2022 without concerning findings. Plan: -Obtain UA to assess for microscopic loss in urine -repeat CBC and ferritin at next appointment #DION Creatinine today is elevated at 1.69, increased from 1.51 at last appointment (baseline 1-1.2). We discussed the possibility that this could be in the setting of urinary retention given urethral strictures and potential for incomplete emptying with catheterization, prerenal given admitted poor hydration, or progression of renal disease in the setting metabolic syndrome as his glucose is elevated today. He is following with Urology in regards to urethral stricture and urinary retention, and follows with his primary care doctor for management of chronic comorbidities. Plan: -We discussed working on increased hydration in the upcoming days -Plan to obtain repeat BMP, UA, urine protein and renal US to assess for obstruction/hydronephrosis. -Pending these results, will re-engage urology #Dysphagia He reports 6 months of daily dysphagia with solid foods. No odynophagia or unintended weight loss Plan: -EGD ordered to assess for structural causes such as mass vs stricture -Referral to esophageal clinic pending results. PATIENT EDUCATION Ready to learn, no apparent learning barriers were identified; learning preferences include listening. Explained diagnosis and treatment plan; patient expressed understanding of the content. ADMINISTRATIVE BILLING I personally spent 40 minutes in care of the patient today. Time includes both non face to face andface to face patient care. Electronically signed by: Jannie Jaquez M.D. 01/21/24 9:09 PM CDT documented in this encounter Plan of Treatment Upcoming Encounters Date Type Department Care Team (Late st Contact Info) Description 02/20/2024 9:30 AM CDT Comprehensive Visit Department of Neurology in [address] [phone] Jannie Jaquez M.D. [address] [place] [phone] Renetta Kramer M.A., [facility]-SPECIAL MACHINE STITCHER [address] [place] [phone] 02/20/2024 10:00 AM CDT Appointment Department of Radiology, [facility], in [address] [phone] Jannie Jaquez M.D. [address] [place] [phone] Renetta Kramer M.A., [facility]-SPECIAL MACHINE STITCHER [address] [place] [phone] 02/20/2024 10:30 AM CDT Clinical Support Department of Neurology in [address] [phone] Jannie Jaquez M.D. [address] [place] [phone] Renetta Kramer M.A., [facility]-SPECIAL MACHINE STITCHER [address] [place] [phone] Scheduled Orders Name Type Priority Associated Diagnoses Orde r Schedule PSA (Prostate-Specific Antigen), Diagnostic Lab Routine Primary Malignant Neoplasm Of Prostate (HCC) Expected: 05/14/2024, Expires: 04/20/2025 CBC with Differential, Blood Lab Routine Primary Malignant Neoplasm Of Prostate (HCC) Expected: 05/14/2024, Expires: 04/20/2025 Basic Metabolic Panel Lab Routine Primary Malignant Neoplasm Of Prostate (HCC) Expected: 05/14/2024, Expires: 04/20/2025 Scheduled Referrals Name Type Priority Associated Diagnoses Orde r Schedule Oncology office visit (clinic) Outpatient Referral Routine Expected: 05/14/2024, Expires: 04/20/2025 documented as of this encounter Results * US Kidneys Bilateral [...] CDT Jannie Jaquez M.D. LAB BLOOD ADD-ON [facility] [place] [address], [facility] [address] [place] [address] * (ABNORMAL) Basic Metabolic Panel (02/05/2024 5:04 PM CDT) Potassium, S 4.2 3.6 - 5.2 mmol/L [...] CDT Jannie Jaquez M.D. LAB BLOOD ADD-ON Performing Organization Address City/[facility]/ZIP Co de Phone Number [facility] [address] [place] [address], [facility] [address] [place] [address] * (ABNORMAL) Protein/Creatinine Ratio, Random, Urine (02/05/2024 [...] LAB URINE ORDERABL ES Performing Organization Address [facility]/ZIP Co de Phone Number [facility] [address] [place] [address], [place] DTL [facility] [address] [place] [address] * (ABNORMAL) Urinalysis, with Microscopic: Urine, Midstream [...] Jannie Jaquez M.D. LAB URINE ORDERABL ES [facility] [place] [address] [place] [address], [facility] DTL [facility] [address] [place] [address] documented in this encounter Visit Diagnoses Diagnosis Primary Malignant Neoplasm Of Prostate (HCC)- Primary Dysphagia Failure Renal Acute (Acute Kidney Injury) (HCC) Primary Malignant Neoplasm Of Prostate (HCC) documented in this encounter Care Teams Production Material Coordinator Relationship Specialty Start Date End Date Elsewhere, Pcp PCP - General Internal Medicine 09/06/21 documented as of this encounter
--- OUTSIDE RECORDS SUMMARY | 2024-02-17 20:41 | XMS_ITS | Encounter Summary ---
Author Organization [facility] Address [address] [place] [address] Care Team Providers Care Deputy Sheriff Civil Division Name Role Phone Elsewhere, Pcp Primary Care Provider Unavailabl e Reason for Referral * Outpatient (Routine) - Authorized Specialty Diagnoses / Procedures Referred By Contac t Referred To Contact Diagnoses Dysphagia Procedures FL Esophagram Single Contrast Jannie Jaquez M.D. [address] [place] [phone] [facility] Referral ID Status Reason Start Date Expiration Date V isits Requested Visits Authorized [id number] Authorized 01/23/2024 01/22/2025 1 1 * Speech Pathology (Routine) - Authorized Specialty Diagnoses / Procedures Referred By Contac t Referred To Contact Diagnoses Dysphagia Procedures MICROBIOLOGY COORDINATOR - Ongoing treatment Jannie Jaquez M.D. [address] [place] [phone] [facility] Referral ID Status Reason Start Date Expiration Date V isits Requested Visits Authorized [id number] Authorized 01/23/2024 01/22/2025 99 99 * Outpatient (Routine) - Authorized Specialty Diagnoses / Procedures Referred By Contac t Referred To Contact Diagnoses Dysphagia Procedures FL Swallow Function with Video and Speech or OT Jannie Jaquez M.D. [address] [place] [phone] [facility] Referral ID Status Reason Start Date Expiration Date V isits Requested Visits Authorized [id number] Authorized 01/23/2024 01/22/2025 1 1 * Speech Pathology (Routine) - Authorized Specialty Diagnoses / Procedures Referred By Contstewart t Referred To Contact Diagnoses Dysphagia Procedures MICROBIOLOGY COORDINATOR Dysphagia evaluate and treat Jannie Jaquez M.D. [address] [place] [phone] [facility] Referral ID Status Reason Start Date Expiration Date V isits Requested Visits Authorized [id number] Authorized 01/23/2024 01/22/2025 99 99 Encounter Details Date Type Department Care Team (Late st Contact Info) Description 01/23/2024 Clinical Communication Department of Oncology in [place], [place] [address] [place] [phone] Jannie Jaquez M.D. [address] [place] [phone] Social History Tobacco Use Types Packs/Day Years Used Date Smoking Tobacco: Former Cigarettes 2 11.8 0 09/16/1979 - 07/17/1991 Smokeless Tobacco: Former Snuff Quit: 07/17/1991 Comments:was a heavy smoker. quit cold turkey from all tobacco 1990 Alcohol Use Standard Drinks/Week Comments Not Currently 0 (1 standard drink = 0.6 oz pur e alcohol) quit drinking 2010 [facility] Utilities Answer Date Recorded In the past [...] often do you attend chur ch or oriental orthodox services? 1 to 4 times per year 12/21/2022 Do you belong to any clubs o r organizations such as zoroastrian groups, unions, fraternal or athletic groups, or [...] and heating? Not hard at all 02/24/2023 [facility] [place] of Occupat ional Health - Occupational Stress [...] your living situation today? I have a [facility] place to live 01/16/2024 Education Answer Date Recorded What is the highest level of school you have completed or the highest degree you have received? Some college, no degree 12/21/2022 Sex and Gender Information Value Date Recorded Sex Assigned at Male 09/05/2021 9:48 AM STRAPPING MACHINE TENDER Gender Identity Male 08/31/2021 8:54 AM STRAPPING MACHINE TENDER Sexual Orientation Straight 08/31/2021 8: 54 AM STRAPPING MACHINE TENDER documented as of this encounter Plan of Treatment Upcoming Encounters Date Type Department Care Team (Late st Contact Info) Description 02/20/2024 9:30 AM CDT Comprehensive Visit Department of Neurology in [place], [place] [address] [place] [phone] Jannie Jaquez M.D. [address] [place] [phone] Renetta Kramer M.A., [facility]-MICROBIOLOGY COORDINATOR [address] [place] [phone] 02/20/2024 10:00 AM CDT Appointment Department of Radiology, [facility], in [place], [place] [address] [place] [phone] Jannie Jaquez M.D. [address] [place] [phone] Renetta Kramer M.A., CCC-MICROBIOLOGY COORDINATOR [address] [place] [phone] 02/20/2024 10:30 AM CDT Clinical Support Department of Neurology in [address] [phone] Jannie Jaquez M.D. [address] [place] [phone] Renetta Kramer M.A., [facility]-MICROBIOLOGY COORDINATOR [address] [place] [phone] Scheduled Orders Name Type Priority Associated Diagnoses Orde r Schedule FL Swallow Function with Video and Speech or OT Imaging RAD - Routine (most inpatients and all outpatients) Dysphagia Expected: 01/23/2024, Expires: 04/24/2025 [place] Esophagram Single Contrast Imaging RAD - Routine (most inpatients and all outpatients) Dysphagia Expected: 01/23/2024, Expires: 04/24/2025 documented as of this encounter Visit Diagnoses Diagnosis Dysphagia- Primary documented in this encounter Care Teams Deputy Sheriff Civil Division Relationship Specialty Start Date End Date Elsewhere, Pcp PCP - General Internal Medicine 09/06/21 documented as of this encounter
--- OUTSIDE RECORDS SUMMARY | 2024-02-17 20:41 | XMS_ITS | Encounter Summary ---
Author Organization [facility] Address [address] [place] [phone] Care Team Providers Care Sales Representative Rural Power Name Role Phone Elsewhere, Pcp Primary Care Provider Unavailabl e Reason for Visit * Reason Onset Date Comments Blue Dialator 12/09/2023 Encounter Details Date Type Department Care Team ([facility] st Contact Info) Description 12/09/2023 Clinical Communication Department of Urology in [place], [place] [address] [place] [phone] Delta Renteria M.D. [address] [place] [phone] Blue Dialator Social History Tobacco Use Types Packs/Day Years Used Date Smoking Tobacco: Former Cigarettes 2 11.8 0 09/16/1979 - 07/17/1991 Smokeless Tobacco: Former Snuff Quit: 07/17/1991 Comments:was a heavy smoker. quit cold turkey from all tobacco 1990 Alcohol Use Standard Drinks/Week Comments Not Currently 0 (1 standard drink = 0.6 oz pur e alcohol) quit drinking 2010 [facility] Utilities Answer Date Recorded In [...] often do you attend chur ch or orthodoxy services? 1 to 4 times per year 12/21/2022 Do you belong to any clubs o r organizations such as pentecostalism groups, unions, fraternal or athletic groups, or [...] and heating? Not hard at all 02/24/2023 [facility] - Occupational Stress [...] living situation today? I have a [facility] place to live 01/16/2024 Education Answer Date Recorded What is the highest level of school you have completed or the highest degree you have received? Some college, no degree 12/21/2022 Sex and Gender Information Value Date Recorded Sex Assigned at Male 09/05/2021 9:48 AM MANAGER LATIN Gender Identity Male 08/31/2021 8:54 AM MANAGER LATIN Sexual Orientation Straight 08/31/2021 8: 54 AM MANAGER LATIN documented as of this encounter Miscellaneous Notes * Telephone Encounter - Henrietta Bhatti RReinaldoN. - 12/09/2023 3:15 PM CDT Online message sent documented in this encounter Plan of Treatment Upcoming Encounters Date Type Department Care Team (Late st Contact Info) Description 02/20/2024 9:30 AM CDT Comprehensive Visit Department of Neurology in [place], [place] [address] [place] [phone] Jannie Jaquez M.D. [address] [place] [phone] Renetta Kramer M.A., [facility]-PATIENT TRANSPORT OFFICER [address] [place] [phone] 02/20/2024 10:00 AM CDT Appointment Department of Radiology, [facility], in [place], [place] [address] [place] [phone] Jannie Jaquez M.D. [address] [place] [phone] Renetta Kramer M.A., [facility]-PATIENT TRANSPORT OFFICER [address] [place] [address] [phone] 02/20/2024 10:30 AM CDT Clinical Support Department of Neurology in [address] [phone] Jannie Jaquez M.D. [address] [place] [address] [phone] Renetta Kramer M.A., [facility]-PATIENT TRANSPORT OFFICER [address] [place] [address] [phone] documented as of this encounter Visit Diagnoses Not on filedocumented in this encounter Care Teams Sales Representative Rural Power Relationship Specialty Start Date End Date Elsewhere, Pcp PCP - General Internal Medicine 09/06/21 documented as of this encounter
--- OUTSIDE RECORDS SUMMARY | 2024-02-17 20:41 | XMS_ITS | Encounter Summary ---
Author Organization [facility] Address [address] [place] [address] Care Team Providers Care Systems Programmer Name Role Phone Elsewhere, Pcp Primary Care Provider Unavailabl e Reason for Visit * Outpatient (Routine) - Closed Specialty Diagnoses / Procedures Referred By Judy love Referred To Contact Ophthalmology Maria T Vázquez M.D. [address] [place] [phone] [facility] Referral ID Status Reason Start Date Expiration Date Visits Re quested Visits Authorized [id number] Closed 09/27/2023 09/26/2026 1 1 Encounter Details Date Type Department Care Team (Late st Contact Info) Description 01/21/2024 9:30 AM CDT Office Visit Department of Ophthalmology in [place], [place] [address] [place] [phone] Maria T Vázquez M.D. [address] [place] [address] [phone] Spastic Entropion Left Lower Eyelid (Primary Dx) Social History Tobacco Use Types Packs/Day Years Used Date Smoking Tobacco: Former Cigarettes 2 11.8 0 09/16/1979 - 07/17/1991 Smokeless Tobacco: Former Snuff Quit: 07/17/1991 Comments:was a heavy smoker. quit cold turkey from all tobacco 1990 Alcohol Use Standard Drinks/Week Comments Not Currently 0 (1 standard drink = 0.6 oz pur e alcohol) quit drinking 2010 [facility] Utilities Answer Date Recorded In the [...] often do you attend chur ch or amish services? 1 to 4 times per year 12/21/2022 Do you belong to any clubs o r organizations such as uatsdin groups, unions, fraternal or athletic groups, or [...] and heating? Not hard at all 02/24/2023 [facility] Occupat ional Health - Occupational Stress [...] your living situation today? I have a [facility] place to live 01/16/2024 Education Answer Date Recorded What is the highest level of school you have completed or the highest degree you have received? Some college, no degree 12/21/2022 Sex and Gender Information Value Date Recorded Sex Assigned at Male 09/05/2021 9:48 AM TANK PUMPER Gender Identity Male 08/31/2021 8:54 AM TANK PUMPER Sexual Orientation Straight 08/31/2021 8: 54 AM TANK PUMPER documented as of this encounter Consult Notes * Maria T Vázquez M.D. - 01/21/2024 9:30 AM CDT Bora Ellingtonverson was seen today for left lower lid entropion, referred by Dr. Prather. 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 Recommend continued lubrication to prevent further spasticity, but I do notthink botox or surgical management is required at this time. 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 [address] [place] [phone] Renetta Kramer M.A., CCC-OXYHYDROGEN WELDER [address] [place] [phone] 02/20/2024 10:00 AM CDT Appointment Department of Radiology, [facility], in [address] [phone] Jannie Jaquez M.D. [address] [place] [phone] Renetta Kramer M.A., CCC-OXYHYDROGEN WELDER [address] [place] [phone] 02/20/2024 10:30 AM CDT Clinical Support Department of Neurology in [address] [phone] Jannie Jaquez M.D. [address] [place] [phone] Renetta Kramer M.A., [facility]-OXYHYDROGEN WELDER [address] [place] [phone] documented as of this encounter Visit Diagnoses Diagnosis Spastic Entropion Left Lower Eyelid- Primary documented in this encounter Care Teams Systems Programmer Relationship Specialty Start Date End Date Elsewhere, Pcp PCP - General Internal Medicine 09/06/21 documented as of this encounter
--- OUTSIDE RECORDS SUMMARY | 2024-02-17 20:41 | XMS_ITS | Encounter Summary ---
Author Organization [facility] Address [address] [place] [address] Care Team Providers Care Communication Consultant Name Role Phone Elsewhere, Pcp Primary Care Provider Unavailabl e Encounter Details Date Type Department Care Team (Latest Contact Info) Description 01/23/2024 Clinical Communication Division of Gastroenterology in [place], [place] [address] [place] [phone] Rom Gonsalves M.D. [address] [place] [phone] Social History Tobacco Use Types Packs/Day Years Used Date Smoking Tobacco: Former Cigarettes 2 11.8 0 09/16/1979 - 07/17/1991 Smokeless Tobacco: Former Snuff Quit: 07/17/1991 Comments:was a heavy smoker. quit cold turkey from all tobacco 1990 Alcohol Use Standard Drinks/Week Comments Not Currently 0 (1 standard drink = 0.6 oz pur e alcohol) quit drinking 2010 [facility] Utilities Answer Date Recorded In the past 12 months has e [employer], gas, oil, or water [employer] ([place]) threatened to shut off services in your [...] any clubs o r organizations such as nondenominational groups, unions, fraternal or athletic groups, or [...] and heating? Not hard at all 02/24/2023 [facility] [place] of Occupat ional Health - Occupational Stress [...] your living situation today? I have a [facility] place to live 01/16/2024 Education Answer Date Recorded What is the highest level of school you have completed or the highest degree you have received? Some college, no degree 12/21/2022 Sex and Gender Information Value Date Recorded Sex Assigned at Male 09/05/2021 9:48 AM CARAMEL MAKER Gender Identity Male 08/31/2021 8:54 AM CARAMEL MAKER Sexual Orientation Straight 08/31/2021 8: 54 AM CARAMEL MAKER documented as of this encounter Plan of Treatment Upcoming Encounters Date Type Department Care Team (Late st Contact Info) Description 02/20/2024 9:30 AM CDT Comprehensive Visit Department of Neurology in [place], [place] [address] [place] [phone] Jannie Jaquez M.D. [address] [place] [address] [phone] Renetta Kramer M.A., [facility]-RECOVERY COLLECTOR [address] [place] [phone] 02/20/2024 10:00 AM CDT Appointment Department of Radiology, [facility], in [place], [place] [address] [place] [phone] Jannie Jaquez M.D. [address] [place] [phone] Renetta Kramer M.A., [facility]-RECOVERY COLLECTOR [address] [place] [phone] 02/20/2024 10:30 AM CDT Clinical Support Department of Neurology in [address] [phone] Jannie Jaquez M.D. [address] [place] [phone] Rneetta Kramer M.A., [facility]-RECOVERY COLLECTOR [address] [place] [address] [phone] documented as of this encounter Visit Diagnoses Not on filedocumented in this encounter Care Teams Communication Consultant Relationship Specialty Start Date End Date Elsewhere, Pcp PCP - General Internal Medicine 09/06/21 documented as of this encounter
--- OUTSIDE RECORDS SUMMARY | 2024-02-17 20:41 | XMS_ITS | Encounter Summary ---
Author Organization [facility] Address [address] [place] [phone] Care Team Providers Care Long Lines Operator Name Role Phone Elsewhere, Pcp Primary Care Provider Unavailabl e Reason for Visit * Outpatient (Routine) - Closed Specialty Diagnoses / Procedures Referred By Judy t Referred To Contact Diagnoses Symptom Urinary Procedures Cystoscopy (specific provider) Jolynn Don M.D. [address] [place] [phone] Delta Renteria M.D. [address] [place] [phone] Referral ID Status Reason Start Date Expiration Date Visits Re quested Visits Authorized [id number] Closed 08/21/2023 08/20/2024 1 1 Encounter Details Date Type Department Care Team (Late st Contact Info) Description 11/12/2023 10:00 AM PAPER HANGER Procedure visit Department of Urology in [place], [place] [address] [place] [phone] Delta Renteria M.D. [address] [place] [address] [phone] Symptom Urinary Social History Tobacco Use Types Packs/Day Years [...] often do you attend chur ch or mormonism services? 1 to 4 times per year 12/21/2022 Do you belong to any clubs o r organizations such as methodist groups, unions, fraternal or athletic groups, or [...] and heating? Not hard at all 02/24/2023 [facility] of Occupat ional Health - [...] your living situation today? I have a [facility] place to live 02/24/2023 Education Answer Date Recorded What is the highest level of school you have completed or the highest degree you have received? Some college, no degree 12/21/2022 Sex and Gender Information Value Date Recorded Sex Assigned at Male 09/05/2021 9:48 AM PAPER HANGER Gender Identity Male 08/31/2021 8:54 AM PAPER HANGER Sexual Orientation Straight 08/31/2021 8: 54 AM PAPER HANGER documented as of this encounter Patient Instructions * Patient Instructions* Tray Bundy - 11/12/2023 10:00 AM PAPER HANGER Care after your cystoscopy Possible blood in your urine You may see some blood the first few times you urinate after the cystoscopy. There could be some small clots of blood in your urine. Or your urine could be pink or light red. These effects are commonafter a cystoscopy. Discomfort For the first day or two after your cystoscopy, you may need to urinate often, and you may have a mild burning feeling while urinating. You also may have mild low abdominal pain for a day. To relievediscomfort, drink two 8-ounce glasses of water each hour for two hours after the test (a total of four glasses in two hours). This will help flush your bladder. To relieve discomfort, if your provider says it???s OK, you may take a warm tub bath for 20 minutes. Or you may hold a clean, warm, moist washcloth over the urethral opening for 20 minutes. Some common pain relievers can affect blood thinning. Examples include aspirin, aspirin-containing products, ibuprofen (Advil, Motrin), and naproxen(Aleve, Naprosyn). Talk with your health care providers about what you can take for pain. Activity Rest for the remainder of the day after your cystoscopy. Gradually return to your usual activity level when you feel able. Diet For the first two days after your cystoscopy, while you are awake, you may find it more comfortableif you drink at least one glass of fluid every one to two hours. This will help flush your bladder.Drink fluids such as water, juice, caffeine-free carbonated beverages and tea. Resume your usual diet after the procedure, unless you are scheduled for more tests or procedures that require a specialdiet. When to get medical help Contact your health care provider right away if you: Are not able to urinate for 6 to 8 hours. Have blood clots or bright red blood in your urine (not pink or rust colored) that lasts for 4 to 5hours despite increased intake of fluids. Have frequent urination with any of the following: - Pain not relieved by increasing fluids. - Chills. - Temperature of 100.4 degrees Fahrenheit (38 degrees Celsius) or higher. Have a burning feeling while urinating on day three or after. R HANGER documented in this encounter Progress Notes * Tray Bundy - 11/12/2023 10:00 AM CST Patient here for a cystoscopy performed by Dr. Delta Mahoney. Dexter Cystoscope CYF-VH #[id number] was used during today's cystoscopy procedure. Accessories used: disposable stop cock. Load number from processing via [employer]: [id number] Urines sent: No 4. Was dye used? No R HANGER documented in this encounter Procedure Notes * Delta Renteria M.D. - 11/12/2023 10:00 AM CSTAssociated Order(s): Cystoscopy (specific provider) Pre-Procedure Diagnose(s): Symptom Urinary Post-Procedure Diagnose(s): Symptom Urinary Cystoscopy (specific provider) Performed by: Delta Renteria M.D. Authorized by: Jolynn Don M.D. CONSENT Consent obtained: verbal Consent given by: patient The benefits, risks and alternatives to the procedure and the potential need for sedation or anesthesia as well as the names, roles, and responsibilities of healthcare team members performing significant interventional tasks were discussed with the patient and/or decision maker. UNIVERSAL PROTOCOL All relevant documentation and testing were reviewed and available. All required blood products, implants, devices and or special equipment were made available as applicable. Pre-procedure verification was conducted and the correct site was marked if required. A fire risk assessment was done as applicable. The procedural time-out to verify correct patient, correct side/site, and procedure was conducted prior to performing the procedure and confirmed in a procedural pause. 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 Plan: He will be instructed on the use of the meatal dilator. He will also continue on 3 times a week catheterization to keep his strictures open. He had excellent ability to empty and he is happy with theresults since his dilatation. R HANGER documented in this encounter Plan of Treatment Upcoming Encounters Date Type Department Care Team (Late st Contact Info) Description 02/20/2024 9:30 AM CDT Comprehensive Visit Department of Neurology in [address] [phone] Jannie Jaquez M.D. [address] [place] [phone] Renetta Kramer M.A., [facility]-[address] [phone] 02/20/2024 10:00 AM CDT Appointment Department of Radiology, [facility], in [address] [phone] Jannie Jaquez M.D. [address] [place] [phone] Renetta Kramer M.A., [facility]-[address] [phone] 02/20/2024 10:30 AM CDT Clinical Support Department of Neurology in [address] [phone] Jannie Jaquez M.D. [address] [place] [phone] Renetta Kramer M.A., [facility]-[address] [phone] documented as of this encounter Procedures Procedure Name Priority Date/Time Associated Diagnosis Comments URO CYSTOSCOPY (SPECIFIC PROVIDER) Routine 11/12/2023 10:00 AM PAPER HANGER Symptom Urinary documented in this encounter Results * Cystoscopy (specific provider) (11/12/2023 10:00 AM PAPER HANGER) Narrative Delta Renteria M.D. - 11/12/2023 10:00 AM PAPER HANGER Delta Renteria M.D. ? 11/12/2023 11:29 AM Cystoscopy (specific provider) Performed by: Delta Renteria M.D. Authorized by: Jolynn Don M.D. ?? CONSENT Consent obtained: verbal Consent given by: patient The benefits, risks and alternatives to the procedure and the potential need for sedation or anesthesia as well as the names, roles, and responsibilities of healthcare team members performing significant interventional tasks were discussed with the patient and/or decision maker. UNIVERSAL PROTOCOL All relevant documentation and testing were reviewed and available. All required blood products, implants, devices and or special equipment were made available as applicable. Pre-procedure verification was conducted and the correct site was marked if required. A fire risk assessment was done as applicable. The procedural time-out to verify correct patient, correct side/site, and procedure was conducted prior to performing the procedure and confirmed in a procedural pause. PRE-PROCEDURE DETAILS Procedure purpose: ??Diagnostic Jolynn Don M.D. UROLOGY ORDERAB LES documented in this encounter Visit Diagnoses Diagnosis Symptom Urinary documented in this encounter Care Teams Long Lines Operator Relationship Specialty Start Date End Date Elsewhere, Pcp PCP - General Internal Medicine 09/06/21 documented as of this encounter
--- OUTSIDE RECORDS SUMMARY | 2024-02-17 20:41 | XMS_ITS | Encounter Summary ---
Author Organization [facility] Address [address] [place] [address] Care Team Providers Care Caterers Helper Name Role Phone Elsewhere, Pcp Primary Care Provider Unavailabl e Encounter Details Date Type Department Care Team (Latest Contact Info) Description 01/20/2024 8:27 AM CDT - 01/20/2024 11:59 PM CDT Hospital Encounter Department of Laboratory Medicine in [address] [phone] Higinio Kelly M.D. [address] [place] [phone] Primary Malignant Neoplasm Of Prostate (HCC); Anemia Discharge Disposition: Home or Self Care Social History Tobacco Use Types Packs/Day Years Used Date Smoking Tobacco: Former Cigarettes 2 11.8 0 09/16/1979 - 07/17/1991 Smokeless Tobacco: Former Snuff Quit: 07/17/1991 Comments:was a heavy smoker. quit cold turkey from all tobacco 1990 Alcohol Use Standard Drinks/Week Comments Not Currently 0 (1 standard drink = 0.6 oz pur e alcohol) quit drinking 2010 [facility] Utilities Answer Date Recorded In the [...] often do you attend chur ch or adventist services? 1 to 4 times per year 12/21/2022 Do you belong to any clubs o r organizations such as muslim groups, unions, fraternal or athletic groups, or [...] and heating? Not hard at all 02/24/2023 [facility] [place] of Occupat ional Health - Occupational Stress [...] your living situation today? I have a [facility] place to live 01/16/2024 Education Answer Date Recorded What is the highest level of school you have completed or the highest degree you have received? Some college, no degree 12/21/2022 Sex and Gender Information Value Date Recorded Sex Assigned at Male 09/05/2021 9:48 AM MILITARY ADMINISTRATIVE TECHNICIAN Gender Identity Male 08/31/2021 8:54 AM MILITARY ADMINISTRATIVE TECHNICIAN Sexual Orientation Straight 08/31/2021 8: 54 AM MILITARY ADMINISTRATIVE TECHNICIAN documented as of this encounter Medications at [...] CDT Comprehensive Visit Department of Neurology in [place], [place] [address] [place] [phone] Jannie Jaquez M.D. [address] [place] [phone] Renetta Kramer M.A., [facility] [address] [place] [phone] 02/20/2024 10:00 AM CDT Appointment Department of Radiology, [facility], in [place], [place] [address] [place] [phone] Jannie Jaquez M.D. [address] [place] [phone] Renetta Kramer M.A., [facility] [address] [place] [phone] 02/20/2024 10:30 AM CDT Clinical Support Department of Neurology in [place], [place] [address] [place] [phone] Jannie Jaquez M.D. [address] [place] [address] [phone] Renetta Kramer M.A., [facility] [address] [place] [address] [phone] documented as of this encounter Procedures Procedure Name Priority Date/Time Associated Diagnosis Comments CBC WITH DIFFERENTIAL, B Routine 01/20/2024 8:34 AM CDT Primary Malignant Neoplasm Of Prostate (HCC) Anemia PROSTATE-SPECIFIC AG (PSA) DIAGNOSTIC, S Routine 01/20/2024 8:34 AM CDT Primary Malignant Neoplasm Of Prostate (HCC) Anemia BASIC METABOLIC PANEL, S/P Routine 01/20/2024 8:34 AM CDT Primary Malignant Neoplasm Of Prostate (HCC) Anemia documented in this encounter Results * (ABNORMAL) Basic Metabolic Panel (01/20/2024 8:34 AM CDT) Potassium, P 4.9 3.6 - 5.2 mmol/L 01/20/2024 8:59 AM CDT CNFL Sodium, P 140 135 - 145 mmol/L 01/20/2024 8:59 AM CDT CNFL Chloride, P 102 98 - 107 mmol/L 01/20/2024 8:59 AM CDT CNFL Bicarbonate, P 25 22 - 29 mmol/L 01/20/2024 8:59 AM CDT CNFL Anion Gap, P 13 7 - 15 01/20/2024 8:59 AM CDT CNFL BUN (Blood Urea Nitrogen), P 31(H) 8 - 24 mg/dL 01/20/2024 8:59 AM CDT CNFL Creatinine 1.69(H) 0.74 - 1.35 mg/dL 01/20/2024 8:59 AM CDT CNFL Estimated GFR (eGFR) 43(L) >=60 mL/min/BSA 01/20/2024 8:59 AM CDT CNFL Comment: Estimated GFR calculated using the 2020 CKD_EPI creatinine equation. Calcium, Total, P 9.2 8.8 - 10.2 mg/dL 01/20/2024 8:59 AM CDT CNFL Glucose, P 227(H) 70 - 140 mg/dL 01/20/2024 8:59 AM CDT CNFL Blood (Blood, Venous) 01/20/2024 8:34 AM CDT 01/20/2024 8:36 AM CDT Higinio Kelly M.D. LAB BLOOD ADD-ON Performing Organization Address [facility]/State/ZIP Co de Phone Number [facility] [address] [place] [address], [place] [address] * (ABNORMAL) CBC with Differential, Blood (01/20/2024 [...] CDT Higinio Kelly M.D. LAB BLOOD ADD-ON [facility] [address] [place] [address], [facility] [place] [address] * PSA (Prostate-Specific Antigen), Diagnostic (01/20/2024 8:34 [...] CDT Higinio Kelly M.D. LAB BLOOD ADD-ON [facility] [address] [place] [address], [facility] [place] [address] [place] [phone] documented in this encounter Visit Diagnoses Diagnosis Primary Malignant Neoplasm Of Prostate (HCC) Anemia documented in this encounter Care Teams Caterers Helper Relationship Specialty Start Date End Date Elsewhere, Pcp PCP - General Internal Medicine 09/06/21 documented as of this encounter
--- OUTSIDE RECORDS SUMMARY | 2024-02-17 20:42 | XMS_ITS | Clinical Summary ---
Author Organization [facility] Address [place], [place] [address] Care Team Providers Care Door Cutter Name Role Phone Bart Castelan MD Primary Care Provider Allergies Active Allergy Reactions Criticality Noted Date Comments Adhesive Rash 11/15/2015 Zolpidem Flushing 01/18/2014 palpitations Amlodipine Palpitations 01/18/2014 flushed Ibuprofen GI Bleeding 02/09/2021 Lisinopril Cough 12/21/2013 Pravastatin Rash 11/15/2015 Medications Medication Sig Dispensed Refills Start Date End Date Status metoprolol (TOPROL XL) 100 mg Sustained-Release tablet Take 1 tablet by mouth once daily. 0 Active clindamycin 1% (CLEOCIN-T) 1 % lotion Apply topically to affected area(s). Place daily under armpits Active acetaminophen (TYLENOL EXTRA STRGTH) 500 mg tablet Take 500 mg by mouth every 6 hours if needed. Max acetaminophen dose: 4000mg in 24 hrs. Active amLODIPine (NORVASC) 5 mg tabletIndications:T mike 1 1/2 tab daily Take 5 mg by mouth once daily. Indications: Take 1 1/2 tab daily Active nitroglycerin (NITROSTAT) 0.[address] 0.4 mg under the tongue every 5 minutes if needed for Chest Pain. Active metFORMIN (GLUCOPHAGE) 500 mg tablet Take 1 tablet by mouth 2 times daily with meals. 0 04/02/2018 Active atorvastatin (LIPITOR) 40 mg tablet Take 1 tablet by mouth at bedtime. 0 04/02/2018 Active aspirin (ECOTRIN) 81 mg enteric coated tablet Take 1 Tablet (81 mg) by mouth once daily with a meal. 0 02/09/2021 Active losartan (COZAAR) 25 mg tablet Take 1 Tablet by mouth once daily. 12/05/2020 Active clotrimazole-betame thasone cream (LOTRISONE) 1-0.05 % cream 09/07/2020 Active fexofenadine (CRISTINA) 180 mg tablet Take 180 mg by mouth once daily. Active abiraterone (ZYTIGA) 250 mg tablet Take 4 Tablets by mouth once daily. 07/12/2022 Active Klor-Con M20 20 mEq Extended-Release tablet Take 20 mEq by mouth. 10/15/2022 Act jessica tamsulosin (FLOMAX) 0.4 mg capsule Take 0.4 mg by mouth. 01/12/2022 Active ascorbic acid, vitamin C, (Vitamin C) 1,000 mg tablet Take 1 Tablet (1,000 mg) by mouth once daily. 0 10/24/2022 Active ferrous sulfate, 65 mg elemental, (Iron) tablet Take 1 Tablet (325 mg) by mouth once daily with a meal. 0 10/24/2022 Active vitamin B complex (B-COMPLEX VITAMIN) tablet Take 1 Tablet by mouth once daily. 0 10/24/2022 Active CPAPIndications:JOE (obstructive sleep apnea) CPAP machine for home use at pressure 9 cm/H2O, full face mask x1/3month with a full face cushion x1/mo 1 Each 11 10/24/2022 Active Active Problems Problem Noted Date Diagnosed Date JOE 10/11/2013 AHI-11 11/02/2013 Possible PAF (paroxysmal atrial fibrillation) Overview: -in ambulance Syncope 11/04/2012 Overview: -due to 6 second pause -likely vasovagal GI bleed 11/03/2012 Gastric ulcer, acute 12/21/2010 Overview: EGD 12/2010 ulcer Benign neoplasm of colon 02/17/2009 Overview: Colonoscopy 02/2009 polyps repeat in 3 years Colonoscopy 04/2012 diverticulosis repeat in 5 years Colonoscopy 03/2018 polyp, repeat in 5 years Immunizations Name Administration Dates Next Due Pneumococcal Poly,23-Valent (Pneumovax) 11/05/19 13 Family History Medical History Relation Name Comments Heart Disease Mother CABG at age 65 Relation Name Status Comments Mother Social History Tobacco Use Types Packs/Day Years Used Date Smoking Tobacco: Former Cigarettes 3 10 0 09/16/1972 - 09/16/1982 Smokeless Tobacco: Never Tobacco Cessation:Counseling Given: Yes Alcohol Use Standard Drinks/Week Comments No 0 (1 standard drink = 0.6 oz pur e alcohol) PHQ-2 Answer Date Recorded PHQ-2 Score 0 11/18/2018 Social Connections Answer Date Recorded Frequency of Communication with Friends and Fami ly Not on file 10/24/2022 Financial Resource Strain Answer Date R ecorded Difficulty of Paying Living Expenses Not on file 09/11/2021 Difficulty of Paying Living Expenses Not on file 09/11/2021 Sex and Gender Information Value Date Recorded Sex Assigned at Not on file Gender Identity Not on file Sexual Orientation Not on file Obstetrics History Last Filed Vital Signs Vital Sign Reading Time Taken Comments Blood Pressure 143/63 10/24/2022 1:25 PM BUTCHER'S ASSISTANT Pulse 79 10/24/2022 1:25 PM BUTCHER'S ASSISTANT Temperature 36.7 ??C (98.1 ??F) 09/10/2019 7:51 AM CS T Respiratory Rate 18 05/08/2014 4:00 PM CDT Oxygen Saturation 97% 10/24/2022 1:25 PM BUTCHER'S ASSISTANT Inhaled Oxygen Concentration - - Weight 94.2 kg (207 lb 9.6 oz) 10/24/2022 1:25 P M BUTCHER'S ASSISTANT Height 180.3 cm (5' 11) 05/08/2014 12:20 PM CDT Body Mass Index 28.95 05/08/2014 12:20 PM CDT Plan of Treatment Health Maintenance Due Date Last Done Comments Tdap 1962 BMI (ht and wt on same day) for age 18+ 1969 Hepatitis C screening for ag e 18-79 1969 Zoster (shingles) series for age 50+ (1 of 2) 1970 Tetanus booster 1971 Lipids for age 45-75 1996 Medicare Wellness for age 65+ 2016 Pneumococcal series for age 65+ (2 of 2 - PCV) 2016 11/05/2012 Depression screening for age 12+ 04/17/2019 04/17/20 18, 11/15/2015 Colonoscopy through age 75 04/02/202304/02, 04/02/2018, 11/04/2012, Additional history exists COVID-19 vaccine series ( season) 2023 07/06/2022, 01/03/2022, 07/24/2021, Additional history exists Influenza for age 65+ 05/17/2024 Procedures Procedure Name Priority Date/Time Associated Diagnosis Comments COLONOSCOPY 04/02/2018 10:08 AM CDT from Last 3 Months or Most Recently Relevant to Health Maintenance Results * COLONOSCOPY (04/02/2018 10:08 AM CDT) 04/02/2018 10:0 8 AM CDT Narrative Transcriptions Drake Gomez MD - 04/02/2018 11:27 AM CDT Patient Name: Bora Rider Procedure Date: 04/02/2018 Gender: Male Date of : 1950 Admit Type: Outpatient Procedure: Colonoscopy Proceduralist: Drake Gomez MD , Licha Berger (Nurse) Indications/Pre-Op Diagnosis: Surveillance: Personal history ofadenomatous polyps on last colonoscopy 5 years ago, Last colonoscopy: October 2012 Medications: Fentanyl 100 micrograms IV, Midazolam 4 mgIV, The level of sedation administered wasmoderate Procedure Description: The patient had risks, benefits and alternatives explained to andgave informed consent. The patient had a stable cardiopulmonary status and judged an adequate candidate for conscious sedation. The [id number] was passed through the anus and advanced tothe cecum, identified by appendiceal orifice and ileocecal valve. The colonoscopy was performed without difficulty. The patient toleratedthe procedure well. The quality of the bowel preparation was good. The ileocecal valve, appendiceal orifice, and rectum were photographed. Complications: No immediate complications. Estimated Blood Loss & Specimen: Estimated blood loss: none. Specimen collected - Yes and sent to Laboratory Findings: The perianal and digital rectal examinations were normal. A 4 mm polyp was found in the sigmoid colon. The polyp was sessile.The polyp was removed with a cold snare. Resection and retrieval were complete. Multiple small and large-mouthed diverticula were found in thesigmoid colon and descending colon. Multiple small and large-mouthed diverticula were found in the transverse colon and ascending colon. Impressions/Post-Op Diagnosis: - One 4 mm polyp in the sigmoid colon, removed with a cold snare. Resected and retrieved. - Severe diverticulosis in the sigmoid colon and in the descendingcolon. - Moderate diverticulosis in the transverse colon and in theascending colon. Recommendation: - Patient has a contact number available for emergencies. The signsand symptoms of potential delayed complications were discussed with the patient. Return to normal activities tomorrow. Written discharge instructions were provided to the patient. - Resume previous diet. - Continue present medications. - Await pathology results. - Repeat colonoscopy in 5 years for surveillance. - For future colonoscopy the patient will require an extended preparation, PEG 8L. If there are any questions, please contact the special forces medical sergeant. Moderate Sedation: Moderate (conscious) sedation was administered by the endoscopy nurse and supervised by the endoscopist. The following parameters were monitored: oxygen saturation, heart rate, respiratory rate, blood pressure, adequacy of pulmonary ventilation and reponse to care. [facility] and nursing notes for moderate sedation details. Total physician intraservice time was 21 minutes. Drake Gomez MD 04/02/2018 11:27:26 AM This report has been signed electronically. Note Initiated On: 04/02/2018 10:08 AM Procedure Code(s): --- Professional --- 33699, Colonoscopy, flexible; with removalof tumor(s), polyp(s), or other lesion(s) bysnare technique Diagnosis Code(s): --- Professional --- Z86.010, Personal history of colonicpolyps D12.5, Benign neoplasm of sigmoid colon K57.30, Diverticulosis of large intestine without perforation or abscess withoutbleeding CPT copyright 2017 [employer]. All rights reserved. The codes documented in this report are preliminary and upon medical insurance coder reviewmay be revised to meet current compliance requirements. Scope In: 10:50:33 AM Scope Withdrawal Time 0 hours 10 minutes 29 seconds Scope Out: 11:10:12 AM Drake Gomez MD PROCEDURE ORD from Last 3 Months or Most Recently Relevant to Health Maintenance Advance Directives * Full Code (Latest Code Status on File) Date Activated Date Inactivated Comments 11/03/2012 11:56 PM 11/06/2012 5:10 PM * Full Code Date Activated Date Inactivated Comments 11/03/2012 11:37 PM 11/03/2012 11:56 PM Care Teams Door Cutter Relationship Specialty Start Date End Date Bart Castelan MD [address] [place] [address] (work) PCP - General 10/27/15
== END 2024-02-13 07:31 | disposition home or self-care (01) ==
LOC: NFLDREF 02-17 20:38
PROVIDERS: PCP Internal Medicine; Referring Provider Internal Medicine; Visit Provider Internal Medicine
DX: E11.9 Type 2 diabetes mellitus without complications (principal); I10 Essential (primary) hypertension; D64.9 Anemia, unspecified; E78.5 Hyperlipidemia, unspecified; C61 Malignant neoplasm of prostate
CPT/HCPCS: 80053; 80061; 82043; 82570; G0103

== ENCOUNTER 2025-03-02 07:40 | Outpatient (CLI) | payer MEDICARE, BC, SELFPAY | END 2025-03-02 07:41 | disposition home or self-care (01) | LOC: NFLDREF 03-05 09:14 | PROVIDERS: PCP Internal Medicine; Referring Provider Internal Medicine; Visit Provider Internal Medicine | DX: E11.9 Type 2 diabetes mellitus without complications (principal); E78.5 Hyperlipidemia, unspecified; I10 Essential (primary) hypertension; D64.9 Anemia, unspecified; E66.9 Obesity, unspecified | CPT/HCPCS: 80053; 80061; 82043; 82570 ==

== ENCOUNTER 2025-09-05 10:06 | Emergency (ER) | payer MEDICARE, BC, SELFPAY ==
--- OUTSIDE RECORDS SUMMARY | 2012-11-05 18:00 | XMS_ITS | Continuity of Care Document ---
Author Organization [facility] Address [address] [address] [place] [address] Phone Care Team Providers Care Biomedical Instrument Technician Name Role Phone Any Aden Unavailable Unavailable Procedures Procedure Date Subsqt Hosp-da E&m Minr Compl 3 Init Inpt Cons New/est Mod-hi 3 Ugi Endo; Dx W/wo Collec Specm 13 Colonoscopy Flex; Dx (sep Pro) 13 Advance Directives Directive Yes / No Effective Date File Name No Information Encounters Encounter Description Practice Location Reason(s) For Visit Diagnoses Date Provider Providers Copied on Encounter Subsqt Hosp-da E&m Minr Compl [facility], [address] [address], [place], [place], [id number], [place] tel:[phone] [facility] No Information 3 Omi Agarwal. [address] [facility], [facility] [address], [place], [place], [id number], [place]. tel:[phone] Referring Provider: Luis F Bowles, [address] [place] [address], [place], [address]. tel:[phone] Init Inpt Cons New/est Mod-hi [facility], [address] [address], [place], [place], [id number], [place] tel:[phone] [facility] No Information 3 No Information Referring Provider: Luis F Bowles, [address], [address]. tel:[phone] Family History Family Member Type Diagnosis Age At Onset No Information Payers Payer name Insurance type Covered democrat ID Russel mac(s) [employer] CI [id number] Social History Type Description Quantity Date Captured Comments Sex Male Smoking Status No Information Chief Complaint And Reason For Visit No Information Reason For Referral Reason For Referral No Information History Of Present Illness Encounter Date Complaint History Of Prese nt Illness No Information Functional Status Date Functional Assessmen t No Information Instructions Date Instruction Additional Infor mation No Information Assessments Type Assessment Date No Information Patient Care Teams Name Effective Dates (start - stop) Status Members No Information
--- OUTSIDE RECORDS SUMMARY | 2025-09-01 15:11 | XMS_ITS | Encounter Summary ---
Author Organization [facility] Address [address] [place] [address] Care Team Providers Care Multimedia Specialist Name Role Phone Elsewhere, Pcp Primary Care Provider Unavailabl e Reason for Visit * ReasonCommentsChest PainChest pain on/off for a week but now intermittently down L arm now, history of stents Encounter Details DateTypeDepartmentCare Team (Latest Contact Info)Yduuzddauss97/17/2025 3:11 PM HEAD BAKER - 09/01/2025 6:44 PM CSTEmergency [facility] [address] [place] [phone] Teresa Daniels, PTiffanie-Cyndi., P.A. [address] [place] [phone] Pain Chest (Primary Dx) Discharge Disposition: Home or Self Care Social History Tobacco UseTypesPacks/DayYears UsedDateSmoking Tobacco: PoddtiNilbfvbjqw177.8 09/16/1979 - 07/17/1991Passive Smoke Exposure: PastSmokeless Tobacco: Former SnuffQuit: 07/17/1991 Comments:was a heavy smoker. quit cold turkey from all tobacco 1990 Passive Exposure Comments:ChildhoodAlcohol UseStandard Drinks/WeekCommentsNot Currently0 (1 standard drink = 0.6 oz pure alcohol)quit drinking 2011[facility] UtilitiesAnswerDate RecordedIn the past 12 months has the electric, gas, oil, or water company threatened to shut off services in your home?No04/01/2025 Humiliation, Afraid, Rape, and Kick questionnaireAnswerDate RecordedWithin the last year, have you been afraid of your partner or ex-partner?No02/24/2023Within the last year, have you been humiliated or emotionally abused in other ways by your partner or ex-partner?No02/24/2023Within the last year, have you been kicked, hit, slapped, or otherwise physically hurt by your partner or ex-partner?No02/24/2023Within the last year, have you been raped or forced to have any kind of sexual activity by your partner or ex-partner?No02/24/2023 Hunger Vital SignAnswerDate RecordedWithin the past 12 months, you worried that your food would run out before you got the money to buymore.Never true04/01/2025 Within the past 12 months, the food you bought just didn't last and you didn't have money to get more.Never true04/01/2025PRAPARE - TransportationAnswerDate RecordedIn the past 12 months, has lack of transportation kept you from medical appointments or from getting medications?No04/01/2025In the past 12 months, has lack of transportation kept you from meetings, work, or from getting things needed for daily living?No04/01/2025Housing StabilityAnswerDate RecordedWhat is your living situation today?I have a steady place to live04/01/2025Education AnswerDate RecordedWhat is the highest level of school you have completed or the highest degree you have received?Some college, no zcifuy5212/21/2022Sex and Gender InformationValueDate RecordedSex Assigned at KrlypQjxf06/21/2021 9:48 AM HEAD BAKER Legal NxdEtlh3810/18/2016 1:16 AM CSTGender MipaxrcaByep26/16/2021 8:54 AM HEAD BAKER Sexual ZbumirpomjzVvjzugfc35/16/2021 8:54 AM CSTdocumented as of this encounter Last Filed Vital Signs Vital SignReadingTime TakenCommentsBlood Genxabeq195/6009/01/2025 6:15 PM HEAD BAKER Nobcy721209/01/2025 6:15 PM EBCHlrrdavemae70 ??C (96.8 ??F)09/01/2025 6:42 PM HEAD BAKER Respiratory Ebyq438111/02/2024 6:15 PM CSTOxygen Zxzroqpnap19%09/01/2025 6:15 PM CSTInhaled Oxygen Concentration--Sawgdf289 kg (240 lb 4.8 oz)09/01/2025 3:26 PM CSTHeight--Body Mass Index36.251 1:57 PM CDTdocumented in this encounter Discharge Instructions * Discharge Instructions* Teresa Daniels P.A.-C., P.A. - 09/01/2025 6:17 PM HEAD BAKER - Your work up here was reassuring, no signs of a heart attack or other worrisome reasons for your chest pain. - You can take 1000 mg of Tylenol every 6 hours for pain - Return to the ER if: Your chest pain gets worse. You have a cough that gets worse, or you cough up blood. You have severe pain in your abdomen. You faint. You have sudden, unexplained chest discomfort. You have sudden, unexplained discomfort in your arms, back, neck, or jaw. You have shortness of breath at any time. You suddenly start to sweat, or your skin gets clammy. You feel nausea or you vomit. You suddenly feel lightheaded or dizzy. You have severe weakness, or unexplained weakness or fatigue. Your heart begins to beat quickly, or it feels like it is skipping beats. Any new or worsening symtoms BAKER * Attachments The following attachments cannot be sent through Care Everywhere. * Nonspecific Chest Pain Adult (French) documented in this encounter Medications at Time of Discharge MedicationSigDispense QuantityRefillsLast FilledStart DateEnd Date amLODIPine (NORVASC) 2.5 mg tablet Take 2.5 mg by mouth every morning. ascorbic acid, vitamin C, (Vitamin C) 1,000 mg tablet Take 1,000 mg by mouth daily.10/24/2022 atorvastatin (LIPITOR) 40 mg tablet Take 1 tablet by mouth at bedtime.09/28/2016 calcium citrate-vitamin D3 (CITRACAL+D) 315 mg-5 mcg (200 Unit) per tablet Take 2 tablets by mouth 2 (two) times a day with meals. clindamycin (CLEOCIN T) 1 % lotion Apply 1 Application topically once as needed (rosacea). clotrimazole-betamethasone (LOTRISONE) 1-0.05 % cream 1 Application as needed.09/07/2020 cyanocobalamin (VITAMIN B12) 1,000 mcg tablet Take 1,000 mcg by mouth every other day. DME Urological supplies Indications:Stricture Urethral Postoperative Male,Retention UrinaryDME Order 1 Unspecified fexofenadine (CRISTINA) 180 mg tablet Take 180 mg by mouth daily as needed for allergies. glipiZIDE (GlucotroL) 5 mg tablet TAKE 0.5 TABLET BY MOUTH ONCE DAILY.*10/07/2024 iron,carbonyl-vitamin C (VITRON-C) 65 mg iron- [address] tablet Take 65 mg of iron by mouth every other day. Do not crush or chew. losartan (COZAAR) 25 mg tablet Take 1 tablet by mouth every morning.12/05/2020 metoprolol succinate (TOPROL-XL) 100 mg 24 hr tablet Take 100 mg by mouth every morning. nitroglycerin (NITROSTAT) 0.[address] 0.4 mg under the tongue every 5 (five) minutes as needed.09/08/2021 omeprazole (PriLOSEC) [address] capsule Take 1 capsule (40 mg total) by mouth daily before morning meal. 90 capsule psyllium (METAMUCIL) 0.52 gram capsule Take 0.52 g by mouth 2 (two) times a day. tamsulosin (FLOMAX) 0.4 mg 24 hr capsule Take 1 capsule (0.4 mg total) by mouth daily. 60 capsule 2documented as of this encounter ED Notes * Teresa Daniels P.A.-C., P.A. - 09/01/2025 6:44 PM CST SUBJECTIVE CHIEF COMPLAINT/REASON FOR VISIT Chest Pain (Chest pain on/off for a week but now intermittently down L arm now, history of stents) HISTORY OF PRESENT ILLNESS Bora Rider is a 74 y.o. male who presents to the ER with concern for chest pain. Patient states that he has had chest pain on and off for the last week that has intermittent but now it has been constant and going down in his left arm. He states he has a history of stents, last time was placed in 2016. He states that he has not had pain like this since then. He also states that has notas severe. He denies any worsening pain when that has activities. He also denies any recent illness, cough, congestion, fever, chills. No leg swelling, no recent travel, no hemoptysis. He states the reason he is coming in to be to evaluate his cousin usually in his chest pain goes away and has beenmore constant today. He has not taken a nitro. He denies radiating pain into his jaw or his back. He states that at this time, he does not have any pain into his left arm REVIEW OF SYSTEMS Constitutional: Negative for fever. HENT: Negative for sore throat. Respiratory: Negative for shortness of breath. Cardiovascular: Positive for chest pain. Gastrointestinal: Negative for abdominal pain, nausea and vomiting. Genitourinary: Negative for dysuria. Skin: Negative for rash. Neurological: Negative for syncope. Psychiatric/Behavioral: Negative for agitation. OBJECTIVE Initial Vitals Temperature 09/01/25 1518 36.6 ??C Pulse Rate 09/01/25 1518 67 Heart Rate 09/01/25 1530 67 Resp Rate 09/01/25 1518 16 Blood Pressure 09/01/25 1518 (!) 170/66 SpO2 09/01/25 1518 99 % Pain Score 09/01/25 1520 0 - No pain PHYSICAL EXAMINATION Constitutional: Nursing note and vitals reviewed. No distress. Eyes: Conjunctivae are normal. Neck: No tracheal deviation present. Cardiovascular: Normal rate and regular rhythm. Exam reveals no gallop and no friction rub. No murmur heard. Pulmonary/Chest: Effort normal and breath sounds normal. There is normal air entry. No stridor. No respiratory distress. He has no wheezes. He has no rhonchi. Abdominal: Soft. exhibits no distension. There is no abdominal tenderness. There is no guarding. Neurological: Alert and oriented to person, place, and time. Interacting normally Skin: He is not diaphoretic. Psychiatric: He has a normal mood and affect. Behavior is normal. ASSESSMENT/PLAN Bora Rider is a 74 y.o. male evaluated for chest pain. Chronic illnesses impacting care: Hypertension, coronary artery disease, aortic regurgitation, obstructive sleep apnea, type 2 diabetes mellitus, primary malignant neoplasm of the prostate. Social determinants impacting care: None. DDX: ACS, pneumonia, pneumothorax, pericarditis, myocarditis, thoracic aortic dissection, tamponade, others Patient is well-appearing, vital signs are stable. Physical exam notable for heart sounds normal, lungs are clear to auscultation. Testing/prescriptions considered but not necessary at this time: D-dimer Exam without evidence of volume overload so doubt heart failure. EKG without signs of active ischemia. Given the timing of pain to ER presentation, baseline and delta troponin is not elevated, less likely ACS. Presentation not consistent with acute PE (PERC pos, WELLS score 0), pneumothorax (not visualized on chest xr), thoracic aortic dissection, pericarditis, tamponade, pneumonia (no infectioussymptoms, clear chest xr), myocarditis (no recent illness). I discussed the plan for discharge with the patient, and patient/family is agreeable. I discussed with patient the utility, limitations, and findings of the exam/interventions/studies done during this visit as well as the list of differential diagnosis. Patient understands provisional nature of this diagnosis and need for follow up. We discussed the plan of care, including supportive cares. We also discussed symptoms to monitor and symptoms that should prompt them to return for re-evaluation including new or worsening symptoms. All questions and concerns addressed. ED Course as of 09/01/251849Sep 01, 2025 1545 Hemoglobin(!): 11.4 1545 Leukocytes: 5.4 1545 INR: 1.0 1557 Troponin T, Baseline, 5th gen: 11 1558 DX Chest Portable 1 View IMPRESSION: No acute airspace opacities, pleural effusion, or pneumothorax. Borderline cardiomegaly. 1814 2H Delta Interp: Not Changing Final Diagnoses: as of 09/01/251849 Pain Chest Teresa Daniels P.A.-C., P.A. 09/01/251914 BAKER documented in this encounter Plan of Treatment DateTypeDepartmentCare Team (Latest Contact Info)Vdnbgqvisqz47/17/2026 9:15 AM CSTClinical Communication Virtual Review in [place], [place] [address] [place] [phone] 11/04/2025 6:10 AM CSTLab Department of Laboratory Medicine and Pathology, [facility], in [place], [place] [address] [place] [phone] Jannie Jaquez M.D. [address] [place] [phone] 11/04/2025 6:40 AM CSTAppointment Department of Radiology, [facility] in [place], [place] [address] [place] [phone] Jannie Jaquez M.D. [address] [place] [phone] 11/04/2025 10:00 AM CSTOffice Visit Division of Hematology in [address] [phone] Jannie Jaquez M.D. [address] [place] [phone] 11/04/2025 11:00 AM CSTInfusion Department of Infusion Therapy in [address] [phone] Jannie Jaquez M.D. [address] [place] [phone] documented as of this encounter Procedures Procedure NamePriorityDate/TimeAssociated DiagnosisCommentsTROPONIN T, 2H/6H REFLEX, 5TH GEN, HRdgfv9509/01/2025 5:46 PM HEAD BAKER DX CHEST PORTABLE 1 VIEWRAD - Semiurgent (Fast; most ED patients; some inpatients)09/01/2025 3:31 PM HEAD BAKER TROPONIN T, BASELINE, 5TH GEN, PSTAT111/02/2024 3:25 PM HEAD BAKER PROTHROMBIN TIME (PT), PSTAT111/02/2024 3:25 PM HEAD BAKER HEPARIN LEVEL ANTI-XA ASSAY, PSTAT111/02/2024 3:25 PM HEAD BAKER CBC WITH DIFFERENTIAL, BSTAT111/02/2024 3:25 PM HEAD BAKER BASIC METABOLIC PANEL, S/PSTAT111/02/2024 3:25 PM HEAD BAKER OGMAEYK6609/01/2025 3:17 PM HEAD BAKER documented in this encounter Results * Troponin T, 2 Hour with 6 Hour Reflex, 5th Gen (09/01/2025 5:46 PM HEAD BAKER) ComponentValueRef RangeTest MethodAnalysis TimePerformed AtPathologist SignatureTroponin T, 2 hr, 5th gen13<=15 ng/L111/02/2024 6:09 PM YUSDRWV5T Abdgw5uc/L111/02/2024 6:09 PM CSTCNFLComment:6 hour collection not indicated.2H Delta InterpNot Ckmljuxx84/17/2025 6:09 PM CSTCNFLSpecimen (Source)Anatomical Location / LateralityCollection Method / VolumeCollection TimeReceived Time Blood09/01/2025 5:46 PM CST09/01/2025 5:49 PM HEAD BAKER Narrative Authorizing ProviderResult TypeResult StatusTrina Jourdan Bedolla.Keke., P.A.LAB BLOOD TROPONINFinal ResultPerforming OrganizationAddressCity/State/ZIP CodePhone Number [facility] [address] [place] [phone], [place] CNFL [facility] in [address] [address] * DX Chest Portable 1 View (09/01/2025 3:31 PM HEAD BAKER)Anatomical RegionLaterality ModalityChest, Thoracic RST LOS, Thoracic ARZ LOS, Thoracic FLA LOSN/ADigital RadiographySpecimen (Source)Anatomical Location / LateralityCollection Method / VolumeCollection TimeReceived Time Impressions 09/01/2025 3:34 PM HEAD BAKER No acute airspace opacities, pleural effusion, or pneumothorax. Borderline cardiomegaly. Narrative 09/01/2025 3:34 PM HEAD BAKER EXAM: DX CHEST PORTABLE 1 VIEW Procedure Note Slade Hernandez M.D. - 09/01/2025 EXAM: DX CHEST PORTABLE 1 VIEW IMPRESSION: No acute airspace opacities, pleural effusion, or pneumothorax. Borderline cardiomegaly. Authorizing ProviderResult TypeResult StatusTeresa Daniels P.A.-C., P.A.IMG DIAGNOSTIC IMAGING PROCEDURESFinal Result * Prothrombin Time (PT) (09/01/2025 3:25 PM HEAD BAKER)ComponentValueRef RangeTest MethodAnalysis TimePerformed AtPathologist SignatureProthrombin Time, P10.79.4 - 12.5 sec09/01/2025 3:38 PM CSTCNFLINR1.00.9 - 1. 3:38 PM CSTCNFL Comment: ----ADDITIONAL INFORMATION---- Standard intensity warfarin therapeutic range: 2.0 to 3.0 ?? High intensity warfarin therapeutic range: 2.5 to 3.5 Specimen (Source)Anatomical Location / LateralityCollection Method / Volume Collection TimeReceived TimeBlood (Blood, Venous)09/01/2025 3:25 PM HEAD BAKER 09/01/2025 3:27 PM HEAD BAKER Narrative Authorizing ProviderResult TypeResult StatusTeresa Daniels P.A.-C., P.A.LAB BLOOD ADD-ONFinal ResultPerforming OrganizationAddressCity/State/ZIP CodePhone Number [facility] [address] [place] [phone], [place] CNFL [facility] in [address] [address] * Heparin Anti-Xa Assay (09/01/2025 3:25 PM HEAD BAKER)ComponentValueRef RangeTest MethodAnalysis TimePerformed AtPathologist SignatureHeparin Anti-Xa, P<0.10 IU/mL09/02/2025 2:40 PM CSTDTLComment: UFH therapeutic range: ?? 0.30-0.70 IU/mL LMWH therapeutic range: 0.50-1.00 IU/mL 0.50-1.00 IU/mL for twice daily dosing ?? 1.00-2.00 IU/mL for once daily dosing (sample obtained 4-6 hours following subcutaneous injection) LMWH prophylactic range:0.10-0.30 IU/mL ----ADDITIONAL INFORMATION---- Heparin Anti-Xa is used to measure heparin concentrations in patients receiving low molecular weight heparin (LMWH) or unfractionated heparin (UFH). Specimen (Source)Anatomical Location / LateralityCollection Method / Volume Collection TimeReceived TimeBlood (Blood, Venous)09/01/2025 3:25 PM HEAD BAKER 09/02/2025 10:49 AM HEAD BAKER Narrative Authorizing ProviderResult TypeResult StatusTeresa Daniels P.A.-C., P.A.LAB BLOOD NON ADD-ONFinal ResultPerforming OrganizationAddressCity/State/ZIP CodePhone Number [address] [address], [facility] [address] [address] * Troponin T, Baseline with 2 Hour/6 Hour Reflex Biomarker Panel (09/01/2025 3:25 PM HEAD BAKER)ComponentValueRef RangeTest MethodAnalysis TimePerformed At Pathologist SignatureTroponin T, Baseline, 5th gen11<=15 ng/L111/02/2024 3:48 PM CSTCNFLSpecimen (Source)Anatomical Location / LateralityCollection Method / VolumeCollection TimeReceived TimeBlood (Blood, Venous)09/01/2025 3:25 PM HEAD BAKER 09/01/2025 3:27 PM HEAD BAKER Narrative Authorizing ProviderResult TypeResult StatusTeresa Daniels P.A.-C., P.A.LAB BLOOD TROPONINFinal ResultPerforming OrganizationAddressCity/State/ZIP CodePhone Number [facility] [address] [place] [phone], [facility] in [address] [address] * (ABNORMAL) Basic Metabolic Panel (09/01/2025 3:25 PM HEAD BAKER)ComponentValueRef RangeTest MethodAnalysis TimePerformed AtPathologist SignaturePotassium, P4.0 3.6 - 5.2 mmol/L111/02/2024 3:46 PM CSTCNFLSodium, X241193 - 145 mmol/L 09/01/2025 3:46 PM CSTCNFLChloride, P75795 - 107 mmol/L111/02/2024 3:46 PM HEAD BAKER CNFLBicarbonate, P2422 - 29 mmol/L111/02/2024 3:46 PM CSTCNFLAnion Gap, P117 - [address]111/02/2024 3:46 PM CSTCNFLBUN (Blood Urea Nitrogen), P238 - 24 mg/dL 09/01/2025 3:46 PM CSTCNFLCreatinine1.40(H)0.74 - 1.35 mg/dL09/01/2025 3:46 PM CSTCNFLEstimated GFR (eGFR)53(L)>=60 mL/min/BSA09/01/2025 3:46 PM CSTCNFL Comment: Estimated GFR calculated using the 2020 CKD_EPI creatinine equation. Calcium, Total, P8.88.8 - 10.2 mg/dL09/01/2025 3:46 PM CSTCNFLGlucose, P171(H)70 - 140 mg/dL09/01/2025 3:46 PM CSTCNFLSpecimen (Source)Anatomical Location / LateralityCollection Method / VolumeCollection TimeReceived TimeBlood (Blood, Venous)09/01/2025 3:25 PM CST09/01/2025 3:27 PM HEAD BAKER Narrative Authorizing ProviderResult TypeResult StatusTrintyesha Daniels P.A.-C., P.A.LAB BLOOD ADD-ONFinal ResultPerforming OrganizationAddressCity/State/ZIP CodePhone Number [facility] [address] [place] [phone], [facility] in [address] [address] * (ABNORMAL) CBC with Differential, Blood (09/01/2025 3:25 PM HEAD BAKER)ComponentValue Ref RangeTest MethodAnalysis TimePerformed AtPathologist SignatureHemoglobin 11.4(L)13.2 - 16.6 g/dL09/01/2025 3:31 PM WECVCKRFqkpmtgctw76.9(L)38.3 - 48.6 %09/01/2025 3:31 PM CSTCNFLErythrocytes3.80(L)4.35 - 5.65 x10(12)/L111/02/2024 3:31 PM SPGICOPNWX01.878.2 - 97.9 fL09/01/2025 3:31 PM CSTCNFLRBC Distrib Width13.911.8 - 14.5 %09/01/2025 3:31 PM CSTCNFLPlatelet Imkfw330609 - 317 x10(9)/L111/02/2024 3:31 PM CSTCNFLLeukocytes5.43.4 - 9.6 x10(9)/L111/02/2024 3:31 PM CSTCNFLNeutrophils3.791.56 - 6.45 x10(9)/L111/02/2024 3:31 PM CSTCNFL Lymphocytes0.92(L)0.95 - 3.07 x10(9)/L111/02/2024 3:31 PM CSTCNFLMonocytes0.43 0.26 - 0.81 x10(9)/L111/02/2024 3:31 PM CSTCNFLEosinophils0.200.03 - 0.48 x10(9)/L111/02/2024 3:31 PM CSTCNFLBasophils<0.040.01 - 0.08 x10(9)/L111/02/2024 3:31 PM CSTCNFLSpecimen (Source)Anatomical Location / LateralityCollection Method / VolumeCollection TimeReceived TimeBlood (Blood, Venous)09/01/2025 3:25 PM CST09/01/2025 3:27 PM HEAD BAKER Narrative Authorizing ProviderResult TypeResult StatusTrina Jourdan Daniels P.A.-C., P.A.LAB BLOOD ADD-ONFinal ResultPerforming OrganizationAddressCity/State/ZIP CodePhone Number [facility] [address] [place] [phone], [facility] CNFL [facility] in [address] [address] * ECG 12 Lead (09/01/2025 3:17 PM HEAD BAKER)ComponentValueRef RangeTest MethodAnalysis TimePerformed AtPathologist SignatureVentricular Rate ECG/Fls55OHUMUBYAJ Cyhqrpkm133ulABVLKZNT Lwjhdqms062cdKFNEJF Baywlkts193cvIOSEMZM Rkvblyzn558dq MUSEP Qhyg28eedxhjpBSFYA [place]-38degreesMUSET Wave [place]-29degreesMUSESpecimen (Source)Anatomical Location / LateralityCollection Method / VolumeCollection TimeReceived Time09/01/2025 3:17 PM CST09/01/2025 3:24 PM HEAD BAKER Impressions MUSE - 09/01/2025 3:24 PM HEAD BAKER Normal sinus rhythm with 1st degree A-V block Left axis deviation Right bundle branch block with secondary ST-T abnormalities When compared with ECG of 11-Sep-2021 14:27, CT interval has increased Reviewed by CHELITA Okeefe Narrative Procedure Note Kwadwo Pickens M.D. - 09/01/2025 IMPRESSION: Normal sinus rhythm with 1st degree A-V block Left axis deviation Right bundle branch block with secondary ST-T abnormalities When compared with ECG of 11-Sep-2021 14:27, CT interval has increased Reviewed by CHELITA Okeefe Authorizing ProviderResult TypeResult StatusTrintyesha Daniels P.A.-C., P.A.ECG ORDERABLESFinal ResultPerforming OrganizationAddressCity/State/ZIP CodePhone Number MUSE NA documented in this encounter Visit Diagnoses Diagnosis Pain Chest- Primary documented in this encounter Care Teams Team MemberRelationshipSpecialtyStart DateEnd Date Elsewhere, Pcp PCP - GeneralInternal Odfppnzv75/22/21documented as of this encounter
[2025-09-05] VITALS (26 sets, daily range): BP systolic 128–171; BP diastolic 61–89; PULSE 63–83; RESP 10–32; TEMP 36.1–36.2; O2SAT 95–100; BMI 33.6
--- OUTSIDE RECORDS SUMMARY | 2025-09-05 10:08 | XMS_ITS ---
Author Organization [facility] Address [address] [place] [address] Care Team Providers Care Machine Design Engineer Name Role Phone Elsewhere, Pcp Primary Care Provider Unavailabl e Active Problems * This document contains information received from the source organization and may not represent a complete record from that organization. ProblemNoted DateDiagnosed WtvyOskkpbkejbeq95/24/2025Keratopathy Band Left 09/27/2023Loss Visual One Eye Left08/16/2023Unsteadiness Gait Disorder Non Khbmihepsq77/06/2023Radiation Therapy Dyvxikgue41/22/2023Injury Radiation Therapy Ndytadd49/22/2023Primary Malignant Neoplasm Of Bvgbfsjb12/14/2022 Myocardial Infarction Old09/11/2021moking Tobacco Use Personal History 1Diabetes Mellitus Type 2 Without Pyoewfhoamkq25/14/2021Feeling Of Incomplete Bladder Zpwkgcdh06/08/2021egurgitation Hsizhf1307/20/2019Apnea Sleep Bwxywnxyuyf61/04/2019Hypertension Essential Mpusfdx2512/02/2015Hyperlipidemia 12/02/2015Coronary Artery Disease Without Angina Uwvfmwkh92/18/2016 Current Treatment and Therapy Plans zoledronic acid (Reclast)* Plan Start Date:11/04/2025 Plan Provider:Jannie Jaquez M.D. Linked Problems OsteoporosisPrimary Malignan t Neoplasm Of Prostate (HCC) Treatment Medications No medications scheduled. Past Treatment and Therapy Plans Plan NameStart DateDiscontinue DateTreatment MedicationsDiscontinue ReasonPlan ProviderLeuprolide Acetate Every 24 Weeks2024No medications scheduled.Therapy Jese Bellamy APRN, C.N.P., D.N.P.Degareli11/09/2021 11/09/2021* degarelix (Firmagon) Therapy Redd Webb M.D. Past Radiation Episodes * IMRT: Prostate, Bilateral PelvisOverview* First Treatment DateLast Treatment DateTreatment SiteTechniqueGoalEpisode Myoydrhy40/* Prostate * Bilateral Pelvis IMRTCurative * Linked Problems Primary Malignant Neoplasm O f Prostate Treatment Courses* Treatment PeriodFraction DoseFractionsTotal DosePlansPlanned F08ZpacjmymP01/24/2022 - 0 cGy2 / 21,900 yIqP8Kneobxbg55/18/2022 - cGy25 / 254,750 cGyReference PointsDeliveredDPV 3834a6401/01/2022 - 02/08/2022?6,650 cGy Lifetime Dose Tracking * ChemicalLifetime DoseAutomatic EntryManual ShsxwFxypuwgvt06.6 mGy38.6 mGy0 mGy Fluoro Time3.7 minutes3.7 minutes0 minutes Resolved Problems ProblemNoted DateDiagnosed DateResolved DateElevated Prostate-Specific Antigen /09/2022Nodule Lpdtbgpr37Non-ST Elevation Myocardial Gemlpkymjc52Impaired Fasting Bdpyvhp7807/20/2019 09/11/20215349Kqaibc05Hypertension Pmsvdalkqf43
--- OUTSIDE RECORDS SUMMARY | 2025-09-05 10:08 | XMS_ITS | Clinical Summary ---
Author Organization [facility] Address [address] [place] [address] Care Team Providers Care Security Systems Specialist Name Role Phone Elsewhere, Pcp Primary Care Provider Unavailabl e Source Comments Patient records contain information from all sites at [facility]. For routine questions regarding patient records, call [phone] during business hours, M-F 8:00 AM - 5:00 PM Central Time. Record requests for emergency care only can be directed to [phone] at any time.[facility] Allergies Active AllergyReactionsCriticalityNoted WzuiKjmwwtstKlhtvajiChtn00/01/2016 Use paper tape IbuprofenGI paqzychs56/27/2021Nsaids (Non-Steroidal Anti-Inflammatory Drug)Other (see comments)Low07/16/2023 Medications * This document contains information received from the source organization and may not represent a complete record from that organization. MedicationSigDispense QuantityRefillsLast FilledStart DateEnd DateStatus amLODIPine (NORVASC) 2.5 mg tablet Take 2.5 mg by mouth every morning.Active metoprolol succinate (TOPROL-XL) 100 mg 24 hr tablet Take 100 mg by mouth every morning.Active atorvastatin (LIPITOR) 40 mg tablet Take 1 tablet by mouth at bedtime.09/28/2016Active clindamycin (CLEOCIN T) 1 % lotion Apply 1 Application topically once as needed (rosacea).Active fexofenadine (CRISTINA) 180 mg tablet Take 180 mg by mouth daily as needed for allergies.Active clotrimazole-betamethasone (LOTRISONE) 1-0.05 % cream 1 Application as needed.09/07/2020Active losartan (COZAAR) 25 mg tablet Take 1 tablet by mouth every morning.12/05/2020ctive nitroglycerin (NITROSTAT) 0.[address] 0.4 mg under the tongue every 5 (five) minutes as needed.09/08/2021ctive tamsulosin (FLOMAX) 0.4 mg 24 hr capsule Take 1 capsule (0.4 mg total) by mouth daily. 60 capsule ctive cyanocobalamin (VITAMIN B12) 1,000 mcg tablet Take 1,000 mcg by mouth every other day.Active iron,carbonyl-vitamin C (VITRON-C) 65 mg iron- [address] tablet Take 65 mg of iron by mouth every other day. 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 30 capsule 5Active ascorbic acid, vitamin C, (Vitamin C) 1,000 mg tablet Take 1,000 mg by mouth daily.3Active omeprazole (PriLOSEC) [address] capsule Take 1 capsule (40 mg total) by mouth daily before morning meal. 90 capsule ctiveHospital, Clinic, or Other Facility Administered MedicationOrdered DoseRouteFrequencyStart DateEnd DateStatus onabotulinumtoxinA injection 50 Units (BOTOX COSMETIC) Indications:Spastic Entropion Left Lower Btzorv32 SmjcgtccErln53/12/2024Active Active Problems ProblemNoted DateDiagnosed QynvInhvngyznbbm95/24/2025Keratopathy Band Left 09/27/2023Loss Visual One Eye Left08/16/2023Unsteadiness Gait Disorder Non Dxopgtavzd95/06/2023Radiation Therapy Ykrvemvjw10/22/2023Injury Radiation Therapy Jghhzlp38/22/2023Primary Malignant Neoplasm Of Xaksngpb87/14/2022 Myocardial Infarction Old09/11/2021moking Tobacco Use Personal History 09/11/2021iabetes Mellitus Type 2 Without Zngpsppwmmbl25/14/2021Feeling Of Incomplete Bladder Ogcojpcq53/08/2021egurgitation Zknugg7707/20/2019Apnea Sleep Hboyqrngeow07/04/2019Hypertension Essential Prljamo1712/02/2015Hyperlipidemia 12/02/2015Coronary Artery Disease Without Angina Hzbgpmfi80/18/2016 Resolved Problems ProblemNoted DateDiagnosed DateResolved DateElevated Prostate-Specific Antigen Nodule Unzpqyeb32/09/2022Non-ST Elevation Myocardial Zredvmhdsi61Impaired Fasting Iehckkd2807/20/2019 09/11/20219010Dihezu97Hypertension Nxczthbjdz25 Encounters DateTypeDepartmentCare EmtwFbsumzxgklu27/17/2025 3:11 PM PRODUCTION LINE ASSEMBLER - 09/01/2025 6:44 PM CSTEmergency [facility] [address] [place] [phone] Teresa Daniels, Jennie., P.A. Pain Chest (Primary Dx) Discharge Disposition: Home or Self Care07/12/2025Results Follow-Up Division of Hematology in [place], [place] [address] [place] [phone] Jannie Jaquez M.D. PSA (Prostate-Specific Antigen), Diagnostic, CBC with Differential, Blood, Comprehensive Metabolic Panel, Testosterone, Total by Mass Spectrometry, Serum 07/08/2025 2:00 PM CDTOffice Visit Department of Oncology in [place], [place] [address] [place] [phone] Jannie Jaquez M.D. Osteopenia; Primary Malignant Neoplasm Of Prostate (HCC); Osteoporosis; Gastroesophageal Reflux Disease Without Esophagitis; Other Specified Disorders Of Bone Density And Structure Multiple Sites07/08/2025 10:45 AM CDT - 07/08/2025 11:59 PM CDTHospital Encounter Department of Laboratory Medicine and Pathology, [facility], in [place], [place] [address] [place] [address] Jannie Jaquez M.D. Primary Malignant Neoplasm Of Prostate (HCC) Discharge Disposition: Home or Self Care06/27/2025Refill Division of Hematology in [place], [place] [address] [place] [address] Jannie Jaquez M.D. Med Refill (omeprazole )from Last 3 Months Immunizations ImmunizationAdministration DatesNext DueInfluenza Split06/16/2015 Family History Medical HistoryRelationNameCommentsCoronary artery diseaseBrother 1Brucestenting Prostate cancerBrother 1BruceAlcohol abuseBrother 2SteveLiver diseaseBrother 2 SteveRcvd transplantProstate cancerFatherJuelCancerMotherNormaCervicalCoronary artery diseaseMotherNormaHyperlipidemia (high cholesterol)MotherNorma HypertensionMotherNormaOther cancerMotherNormaCervicalCoronary artery disease SisterDebbiestentingDrug abuseSon 1Andypassed awayDrug abuseSon 2Benjaminpassed awayRelationNameStatusCommentsBrother 1BruceBrother 2SteveFatherJuelMotherNorma SisterDebbieSon 1AndySon 2Benjamin Social History Tobacco UseTypesPacks/DayYears UsedDateSmoking Tobacco: YdkkdxEatvbueezf995.8 09/16/1979 - 07/17/1991Passive Smoke Exposure: PastSmokeless Tobacco: Former SnuffQuit: 07/17/1991 Tobacco Cessation:Counseling Given: Not Answered Comments:was a heavy smoker. quit cold turkey from all tobacco 1990 Passive Exposure Comments:ChildhoodAlcohol UseStandard Drinks/WeekCommentsNot Currently0 (1 standard drink = 0.6 oz pure alcohol)quit drinking 2011AHC UtilitiesAnswerDate RecordedIn the past 12 months has the Magic Leap, gas, oil, or water Certess threatened to shut off services in your home?No07/ Humiliation, Afraid, Rape, and Kick questionnaireAnswerDate RecordedWithin [...] highest degree you have received?Some college, no kvnioz6412/21/2022Sex and Gender InformationValueDate RecordedSex Assigned at IfzjcXdap40/21/2021 9:48 AM PRODUCTION LINE ASSEMBLER Legal CmiOrmm7910/18/2016 1:16 AM CSTGender RujpewxqOtdj47/16/2021 8:54 AM PRODUCTION LINE ASSEMBLER Sexual SqroahutpiqLrteijvr01/16/2021 8:54 AM PRODUCTION LINE ASSEMBLER Last Filed Vital Signs Vital SignReadingTime TakenCommentsBlood Ozskaqsv935/6009/01/2025 6:15 PM PRODUCTION LINE ASSEMBLER Hyuwr410109/01/2025 6:15 PM JORAsziviijejb46 ??C (96.8 ??F)09/01/2025 6:42 PM PRODUCTION LINE ASSEMBLER Respiratory Aoue475011/02/2024 6:15 PM CSTOxygen Suelntqbsm81%09/01/2025 6:15 PM CSTInhaled Oxygen Concentration--Fswytp254 kg (240 lb 4.8 oz)09/01/2025 3:26 PM ZNZTyzysg101.4 cm (5' 8.27)07/08/2025 1:57 PM CDTBody Mass Index36.251 1:57 PM CDT Plan of Treatment DateTypeDepartmentCare Team (Latest Contact Info)Nebvsbxrgyv89/17/2026 9:15 AM CSTClinical Communication Virtual Review in [place], [place] [address] [place] [address] 11/04/2025 6:10 AM CSTLab Department of Laboratory Medicine and Pathology, [facility] in [address] [phone] Jannie Jaquez M.D. [address] [place] [phone] 11/04/2025 6:40 AM CSTAppointment Department of Radiology, [facility] in [address] [phone] Jannie Jaquez M.D. [address] [place] [phone] 11/04/2025 10:00 AM CSTOffice Visit Division of Hematology in [address] [phone] Jannie Jaquez M.D. [address] [place] [phone] 11/04/2025 11:00 AM CSTInfusion Department of Infusion Therapy in [address] [phone] Jannie Jaquez M.D. [address] [place] [phone] Health MaintenanceDue DateLast DoneCommentsCT Azzvhxaomncy20/10/1952Cologuard 2Diabetic Office Visit with Foot Exam1951Hepatitis C Screening 2Office Visit for Blood Pressure Check / Re-check1951Urine Yyjmipl47olonoscopy/, 11/04/2012, 2012 (Performed elsewhere)Colorectal Cancer Piumwphmuoah25/18/2023Lipid (Cholesterol) Fddnaedco39/12/2018, 06/06/2017Depression Screening (Annual PHQ-2)09/16/2024Fall Risk Screen (Annual)09/16/2024Diabetic Eye Exam 5009/27/2023Hemoglobin A1C, 08/16/2023, 06/25/2022, Additional history existsCOVID-19 Vaccine ( season)2025 06/25/2025, 02/24/2025, 06/12/2024, Additional history existsCreatinine Level (Kidney Function Test)/, 07/08/2025, 04/08/2025, Additional history existsPotassium Level, 07/08/2025, 04/08/2025, Additional history existsSodium Level, 07/08/2025, 04/08/2025, Additional history existsDTaP,Tdap,and Td Vaccines (3 - Td or Tdap) /03/2024, 02/04/2014Hepatitis B NigamrsiUshmsjxsg46/08/1991, 08/15/1990, 07/11/1990Abdominal Aortic Aneurysm (AAA) TfkmxyWgfpsargf20/20/2013, 11/05/2012Zoster AvlchmlmDzggjrpwu54/15/2020, 06/30/2020, 06/24/2020RSV vaccine - (32-36 weeks) or 50+ fvegjUgqzvdzyx65/31/2023Pneumococcal vaccine (50+ years)Rpdgowdlf52/28/2025, 07/07/2015, 11/05/2012Influenza VaccineCompleted 06/15/2025, 06/12/2024, 06/19/2023, Additional history existsHPV VaccinesAged OutNo longer eligible based on patient's age to complete this topicIPV Vaccines Aged OutNo longer eligible based on patient's age to complete this topic Medical Devices ImplantedTypeAreaManufacturerDevice IdentifierShelf Expiration DateModel / Serial / LotPremier 3.0 X 12 - Zamora [id number] Implanted:Qty: 1 on 10/25/2015Cardiac StentBoston ScientificDescription:Device 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 Device Status Text - [id number].Marker Tissue Biomarc Kv 1x5 - [id number] Implanted:Qty: 4 on 12/18/2021 [facility] MarkerCircumferential: [facility] [id number] / / [id number] LensOcular LensRight: Eye Procedures Procedure NamePriorityDate/TimeAssociated DiagnosisCommentsTROPONIN T, 2H/6H REFLEX, 5TH GEN, GNkxss6609/01/2025 5:46 PM PRODUCTION LINE ASSEMBLER DX CHEST PORTABLE 1 VIEWRAD - Semiurgent (Fast; most ED patients; some inpatients)09/01/2025 3:31 PM PRODUCTION LINE ASSEMBLER PROTHROMBIN TIME (PT), PSTAT111/02/2024 3:25 PM PRODUCTION LINE ASSEMBLER HEPARIN LEVEL ANTI-XA ASSAY, PST09/01/2025 3:25 PM PRODUCTION LINE ASSEMBLER TROPONIN T, BASELINE, 5TH GEN, PSTAT111/02/2024 3:25 PM PRODUCTION LINE ASSEMBLER BASIC METABOLIC PANEL, S/PSTAT111/02/2024 3:25 PM PRODUCTION LINE ASSEMBLER CBC WITH DIFFERENTIAL, BSTAT111/02/2024 3:25 PM PRODUCTION LINE ASSEMBLER AXZLIFJ3409/01/2025 3:17 PM PRODUCTION LINE ASSEMBLER TESTOSTERONE, TOTAL BY MASS SPECROMETRY, BWqcohsl43/23/2025 10:53 AM CDT Primary Malignant Neoplasm Of Prostate (HCC) COMPREHENSIVE METABOLIC PANEL, S/AWdoxrha45/23/2025 10:53 AM CDT Primary Malignant Neoplasm Of Prostate (HCC) CBC WITH DIFFERENTIAL, EHdepcvp86/23/2025 10:53 AM CDT Primary Malignant Neoplasm Of Prostate (HCC) PROSTATE-SPECIFIC AG (PSA) DIAGNOSTIC, YDuzdazh58/23/2025 10:53 AM CDT Primary Malignant Neoplasm Of Prostate (HCC) HEMOGLOBIN A1C, MDvnygvc27/30/2025 10:57 AM CDT Diabetes Mellitus Type 2 Without Complication (HCC) ALBUMIN, RANDOM, QYznappk95/12/2021 9:26 AM PRODUCTION LINE ASSEMBLER Diabetes Mellitus Type 2 (HCC) LIPID PANEL, ZDhuzsew78/04/2019 8:36 AM PRODUCTION LINE ASSEMBLER Stenosis Aortic Valve Acquired from Last 3 Months or Most Recently Relevant to Health Maintenance Results * Troponin T, 2 Hour with 6 Hour Reflex, 5th Gen (09/01/2025 5:46 PM PRODUCTION LINE ASSEMBLER) ComponentValueRef RangeTest MethodAnalysis TimePerformed AtPathologist SignatureTroponin T, 2 hr, 5th gen13<=15 ng/L111/02/2024 6:09 PM JUQTTZY6V Lvrrh7ee/L111/02/2024 6:09 PM CSTCNFLComment:6 hour collection not indicated.2H Delta InterpNot Tleonnuw11/17/2025 6:09 PM CSTCNFLSpecimen (Source)Anatomical Location / LateralityCollection Method / VolumeCollection TimeReceived Time Blood09/01/2025 5:46 PM CST09/01/2025 5:49 PM PRODUCTION LINE ASSEMBLER Narrative Authorizing ProviderResult TypeResult StatusTeresa Daniels P.A.-C., P.A.LAB BLOOD TROPONINFinal ResultPerforming OrganizationAddressCity/State/ZIP CodePhone Number [facility] [address] [place] [phone], [facility] CNFL [facility] in [address] [address] * DX Chest Portable 1 View (09/01/2025 3:31 PM PRODUCTION LINE ASSEMBLER)Anatomical RegionLaterality ModalityChest, Thoracic RST LOS, Thoracic ARZ LOS, Thoracic FLA LOSN/ADigital RadiographySpecimen (Source)Anatomical Location / LateralityCollection Method / VolumeCollection TimeReceived Time Impressions 09/01/2025 3:34 PM PRODUCTION LINE ASSEMBLER No acute airspace opacities, pleural effusion, or pneumothorax. Borderline cardiomegaly. Narrative 09/01/2025 3:34 PM PRODUCTION LINE ASSEMBLER EXAM: DX CHEST PORTABLE 1 VIEW Procedure Note Slade Hernandez M.D. - 09/01/2025 EXAM: DX CHEST PORTABLE 1 VIEW IMPRESSION: No acute airspace opacities, pleural effusion, or pneumothorax. Borderline cardiomegaly. Authorizing ProviderResult TypeResult StatusTeresa Daniels P.A.-C., P.A.IMG DIAGNOSTIC IMAGING PROCEDURESFinal Result * Troponin T, Baseline with 2 Hour/6 Hour Reflex Biomarker Panel (09/01/2025 3:25 PM PRODUCTION LINE ASSEMBLER)ComponentValueRef RangeTest MethodAnalysis TimePerformed At Pathologist SignatureTroponin T, Baseline, 5th gen11<=15 ng/L111/02/2024 3:48 PM CSTCNFLSpecimen (Source)Anatomical Location / LateralityCollection Method / VolumeCollection TimeReceived TimeBlood (Blood, Venous)09/01/2025 3:25 PM PRODUCTION LINE ASSEMBLER 09/01/2025 3:27 PM PRODUCTION LINE ASSEMBLER Narrative Authorizing ProviderResult TypeResult StatusTeresa Daniels P.A.-C., P.A.LAB BLOOD TROPONINFinal ResultPerforming OrganizationAddressCity/State/ZIP CodePhone Number [facility] [address] [place] [address], [place] [address] * Prothrombin Time (PT) (09/01/2025 3:25 PM PRODUCTION LINE ASSEMBLER)ComponentValueRef RangeTest MethodAnalysis TimePerformed AtPathologist SignatureProthrombin Time, P10.79.4 - 12.5 sec09/01/2025 3:38 PM CSTCNFLINR1.00.9 - 1. 3:38 PM CSTCNFL Comment: ----ADDITIONAL INFORMATION---- Standard intensity warfarin therapeutic range: 2.0 to 3.0 ?? High intensity warfarin therapeutic range: 2.5 to 3.5 Specimen (Source)Anatomical Location / LateralityCollection Method / Volume Collection TimeReceived TimeBlood (Blood, Venous)09/01/2025 3:25 PM PRODUCTION LINE ASSEMBLER 09/01/2025 3:27 PM PRODUCTION LINE ASSEMBLER Narrative Authorizing ProviderResult TypeResult StatusTeresa Daniels P.A.-C., P.A.LAB BLOOD ADD-ONFinal ResultPerforming OrganizationAddressCity/State/ZIP CodePhone Number [facility] [address] [place] [address], [address] [address] * Heparin Anti-Xa Assay (09/01/2025 3:25 PM PRODUCTION LINE ASSEMBLER)ComponentValueRef RangeTest MethodAnalysis TimePerformed AtPathologist SignatureHeparin Anti-Xa, P<0.10 [...] Collection TimeReceived TimeBlood (Blood, Venous)09/01/2025 3:25 PM PRODUCTION LINE ASSEMBLER 09/02/2025 10:49 AM PRODUCTION LINE ASSEMBLER Narrative Authorizing ProviderResult TypeResult StatusTrintyesha Daniels P.A.-C., P.A.LAB BLOOD NON ADD-ONFinal ResultPerforming OrganizationAddressCity/State/[place] [address], [facility] [place][Note 2] [address] [place] [address] * (ABNORMAL) CBC with Differential, Blood (09/01/2025 3:25 PM PRODUCTION LINE ASSEMBLER) Only the most recent of2 resultswithin the time period is included. ComponentValueRef RangeTest MethodAnalysis TimePerformed AtPathologist Signature Kthfjjkvuo82.4(L)13.2 - 16.6 g/dL09/01/2025 3:31 PM CHCAAKSAlimmwicdy88.9(L)38.3 - 48.6 %09/01/2025 3:31 PM CSTCNFLErythrocytes3.80(L)4.35 - 5.65 x10(12)/L 09/01/2025 3:31 PM NTMCYZSAXG12.878.2 - 97.9 fL09/01/2025 3:31 PM CSTCNFLRBC Distrib Width13.911.8 - 14.5 %09/01/2025 3:31 PM CSTCNFLPlatelet Ipxqm069215 - 317 x10(9)/L111/02/2024 3:31 PM CSTCNFLLeukocytes5.43.4 - 9.6 x10(9)/L111/02/2024 3:31 PM CSTCNFLNeutrophils3.791.56 - 6.45 x10(9)/L111/02/2024 3:31 PM CSTCNFL Lymphocytes0.92(L)0.95 - 3.07 x10(9)/L111/02/2024 3:31 PM CSTCNFLMonocytes0.43 0.26 - 0.81 x10(9)/L111/02/2024 3:31 PM CSTCNFLEosinophils0.200.03 - 0.48 x10(9)/L111/02/2024 3:31 PM CSTCNFLBasophils<0.040.01 - 0.08 x10(9)/L111/02/2024 3:31 PM CSTCNFLSpecimen (Source)Anatomical Location / LateralityCollection Method / VolumeCollection TimeReceived TimeBlood (Blood, Venous)09/01/2025 3:25 PM CST09/01/2025 3:27 PM PRODUCTION LINE ASSEMBLER Narrative Authorizing ProviderResult TypeResult StatusTrina Jourdan Bedolla.Keke., P.A.LAB BLOOD ADD-ONFinal ResultPerforming OrganizationAddressCity/State/ZIP CodePhone Number [facility] [address] [place] [address], [facility] CNFL [facility] [place] [address] * (ABNORMAL) Basic Metabolic Panel (09/01/2025 3:25 PM PRODUCTION LINE ASSEMBLER)ComponentValueRef RangeTest MethodAnalysis TimePerformed AtPathologist SignaturePotassium, P4.0 3.6 - 5.2 mmol/L111/02/2024 3:46 PM CSTCNFLSodium, F685322 - 145 mmol/L 09/01/2025 3:46 PM CSTCNFLChloride, N33527 - 107 mmol/L111/02/2024 3:46 PM PRODUCTION LINE ASSEMBLER CNFLBicarbonate, P2422 - 29 mmol/L111/02/2024 3:46 PM [...] (Blood, Venous)09/01/2025 3:25 PM CST09/01/2025 3:27 PM PRODUCTION LINE ASSEMBLER Narrative Authorizing ProviderResult TypeResult StatusTrintyesha Daniels P.A.-C., P.A.LAB BLOOD ADD-ONFinal ResultPerforming OrganizationAddressCity/State/ZIP CodePhone Number [facility] [address] [place] [address], [facility] CNFL [facility] [place] [address] * ECG 12 Lead (09/01/2025 3:17 PM PRODUCTION LINE ASSEMBLER)ComponentValueRef RangeTest MethodAnalysis TimePerformed AtPathologist SignatureVentricular Rate ECG/Eky03SMPCASAXM Rmnsggae115ieBDVXWCGA Yttjtqqs583swLXWNTZ Qpifgihf939pgTOWUDTJ Geybkbgf297ff MUSEP Bwzw07iqynunfNHIOI [place]-38degreesMUSET Wave [place]-29degreesMUSESpecimen (Source)Anatomical Location / LateralityCollection Method / VolumeCollection TimeReceived Time09/01/2025 3:17 PM CST09/01/2025 3:24 PM PRODUCTION LINE ASSEMBLER Impressions MUSE - 09/01/2025 3:24 PM PRODUCTION LINE ASSEMBLER Normal sinus rhythm with 1st degree A-V block Left axis deviation Right bundle branch block with secondary ST-T abnormalities When compared with ECG of 11-Sep-2021 14:27, VA interval has increased Reviewed by CHELITA Okeefe Narrative Procedure Note Kwadwo Pickens M.D. - 09/01/2025 IMPRESSION: Normal sinus rhythm with 1st degree A-V block Left axis deviation Right bundle branch block with secondary ST-T abnormalities When compared with ECG of 11-Sep-2021 14:27, VA interval has increased Reviewed by CHELITA Okeefe Authorizing ProviderResult TypeResult StatusTeresa Daniels P.A.-C. P.A.ECG ORDERABLESFinal ResultPerforming OrganizationAddressCity/State/ZIP CodePhone Number MUSE NA * (ABNORMAL) Testosterone, Total by Mass Spectrometry, Serum (07/08/2025 10:53 AM CDT)ComponentValueRef RangeTest MethodAnalysis TimePerformed AtPathologist SignatureTestosterone, Total by Mass Spectrometry, Xtmru270(L)240 - 950 ng/dL 07/10/2025 2:10 PM CDTSDSCComment: ----ADDITIONAL INFORMATION---- Testing performed by Liquid Chromatography-Tandem Mass Spectrometry (LC-MS/MS). This test was developed and its performance characteristics determined by [facility] in a manner consistent with CLIA requirements. This test has not been cleared or approved by the U.S. Food and Drug Administration. Specimen (Source)Anatomical Location / LateralityCollection Method / Volume Collection TimeReceived TimeBlood (Blood, Venous)07/08/2025 10:53 AM CDT 07/08/2025 2:40 PM CDT Narrative Authorizing ProviderResult TypeResult StatusRosdirk Jaquez M.D.LAB BLOOD NON ADD-ONFinal ResultPerforming OrganizationAddressCity/State/ZIP CodePhone Number [facility] [address] [facility] [address] [place] [address] [facility] [address] [place] [address] [place] [address] * PSA (Prostate-Specific Antigen), Diagnostic (07/08/2025 10:53 AM CDT)Component ValueRef RangeTest MethodAnalysis TimePerformed AtPathologist Signature Prostate-Specific Ag<0.10<=6.5 ng/mL07/08/2025 12:57 PM CDTDTLComment: ----ADDITIONAL INFORMATION---- The testing method is an electrochemiluminescence assay manufactured by [employer] and performed on the Modular or [employer]aked[employer] system. Values obtained with different assay methods or kits may be different and cannot be used interchangeably. Test results cannot be interpreted as absolute evidence for the presence or absence of malignant disease. Specimen (Source)Anatomical Location / LateralityCollection Method / Volume Collection TimeReceived TimeBlood (Blood, Venous)07/08/2025 10:53 AM CDT 07/08/2025 11:14 AM CDT Narrative Authorizing ProviderResult TypeResult StatusRosalyravindra Jaquez M.D.LAB BLOOD ADD-ONFinal ResultPerforming OrganizationAddressCity/State/ZIP CodePhone Number [address] [address], [facility] [address] [address] * (ABNORMAL) Comprehensive Metabolic Panel (07/08/2025 10:53 AM CDT)Component ValueRef RangeTest MethodAnalysis TimePerformed AtPathologist Signature Potassium, S4.53.6 - 5.2 mmol/L1 12:20 PM CDTDTLSodium, Z910289 - 145 mmol/L1 12:20 PM CDTDTLChloride, D78178 - 107 mmol/L1 12:20 PM CDTDTLBicarbonate, S2622 - 29 mmol/L1 12:20 PM CDTDTLAnion Kre522 - 151 12:20 PM CDTDTLBUN (Blood Urea Nitrogen), S228 - 24 mg/dL 07/08/2025 12:20 PM CDTDTLCreatinine1.53(H)0.74 - 1.35 mg/dL07/08/2025 12:20 PM CDTDTLEstimated GFR (eGFR)48(L)>=60 mL/min/BSA07/08/2025 12:20 PM CDTDTL Comment: Estimated GFR calculated using the 2020 CKD_EPI creatinine equation. Calcium, Total, S9.68.8 - 10.2 mg/dL07/08/2025 12:20 PM CDTDTLGlucose, U06516 - 140 mg/dL07/08/2025 12:20 PM CDTDTLProtein, Total, S6.66.3 - 7.9 g/dL07/08/2025 12:20 PM CDTDTLAlbumin, S4.63.5 - 5.0 g/dL07/08/2025 12:20 PM CDTDTLAspartate Aminotransferase (AST), S198 - 48 U/L1 12:20 PM CDTDTLAlkaline Phosphatase, I51886 - 129 U/L1 12:20 PM CDTDTLAlanine Aminotransferase (ALT), S137 - 55 U/L1 12:20 PM CDTDTLBilirubin, Total, S0.40.0 - 1.2 mg/dL07/08/2025 12:20 PM CDTDTLSpecimen (Source)Anatomical Location / Laterality Collection Method / VolumeCollection TimeReceived TimeBlood (Blood, Venous) 07/08/2025 10:53 AM CDT1 11:14 AM CDT Narrative Authorizing ProviderResult TypeResult StatusRosdirk Jaquez M.D.LAB BLOOD ADD-ONFinal ResultPerforming OrganizationAddressCity/State/ZIP CodePhone Number [address] [address], [facility] [place]Note 2] [address] [place] [address] * (ABNORMAL) Hemoglobin A1c (01/13/2025 10:57 AM CDT)ComponentValueRef RangeTest MethodAnalysis TimePerformed AtPathologist SignatureHemoglobin A1c, B6.5(H)4.2 - 5.6 %01/13/2025 11:17 AM CDTCNFLComment: Hemoglobin A1c values greater than or equal to 6.5 percent are diagnostic for diabetes mellitus. ??Diagnosis should be confirmed by repeat testing. ??In diabetic patients, HbA1c goals should be discussed with healthcare provider. Specimen (Source)Anatomical Location / LateralityCollection Method / Volume Collection TimeReceived TimeBlood (Blood, Venous)01/13/2025 10:57 AM CDT 01/13/2025 11:01 AM CDT Narrative Authorizing ProviderResult TypeResult StatusJannie Jaquez M.D.LAB BLOOD ADD-ONFinal ResultPerforming OrganizationAddressCity/State/ZIP CodePhone Number [facility] [address] [place] [phone], [facility] CNFL [facility] in [address] [address] * (ABNORMAL) Albumin, Random, Urine (07/28/2021 9:26 AM PRODUCTION LINE ASSEMBLER)ComponentValueRef RangeTest MethodAnalysis TimePerformed AtPathologist SignatureAlbumin, Random, U38.8mg/L109/27/2020 11:26 AM CSTDTLComment: ----ADDITIONAL INFORMATION---- This test has been modified from the trash collector 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 Its performance characteristics were determined by [facility] in a manner consistent with CLIA requirements. This test has not been cleared or approved by the U.S. Food and Drug Administration. Qajflwycoi282iu/dL07/28/2021 10:50 AM CSTDTLAlbumin/Creatinine Ratio29(H)<17 mg/g109/27/2020 11:26 AM CSTDTLSpecimen (Source)Anatomical Location / Laterality Collection Method / VolumeCollection TimeReceived TimeUrine (Urine, Clean Catch) 07/28/2021 9:26 AM CST07/28/2021 10:08 AM PRODUCTION LINE ASSEMBLER Narrative Authorizing ProviderResult TypeResult StatusNicolas Mazariegos M.D.LAB URINE ORDERABLESFinal ResultPerforming OrganizationAddressCity/State/ZIP CodePhone Number [facility] [address] [place] [address], [facility] [place][Note 2] [address] [place] [address] * (ABNORMAL) Lipid Panel (07/20/2019 8:36 AM PRODUCTION LINE ASSEMBLER)ComponentValueRef RangeTest MethodAnalysis TimePerformed AtPathologist SignatureCholesterol, Ngtpt675le/dL 07/20/2019 10:34 AM CSTDTLComment: ----REFERENCE VALUE---- Desirable: < 200 Borderline high: 200 - 239 High: > or = 240 Tdxnehdaijraw366(H)mg/dL07/20/2019 10:34 AM CSTDTLComment: ----REFERENCE VALUE---- Normal: <150 Borderline high: 150-199 High: 200-499 Very high: > or =500 Cholesterol, HDL, S43>=40 mg/dL07/20/2019 10:34 AM CSTDTLCalculated FNV43vq/dL 07/20/2019 10:34 AM CSTDTLComment: ----REFERENCE VALUE---- Desirable: <100 Above Desirable: 100-129 Borderline high: 130-159 High: 160-189 Very high: > or =190 Cholesterol, Non-HDL, Uocgdgsjiv87em/dL07/20/2019 10:34 AM CSTDTLComment: ----REFERENCE VALUE---- Desirable: <130 Above Desirable: 130-159 Borderline high: 160-189 High: 190-219 Very high: > or =220 Specimen (Source)Anatomical Location / LateralityCollection Method / Volume Collection TimeReceived TimeBlood (Blood, Venous)07/20/2019 8:36 AM PRODUCTION LINE ASSEMBLER 07/20/2019 8:58 AM PRODUCTION LINE ASSEMBLER Narrative Authorizing ProviderResult TypeResult StatusDavid Tyesha Qiu M.D.LAB BLOOD ADD-ON Final ResultPerforming OrganizationAddressCity/State/ZIP CodePhone Number [facility] [address] [place] [address], [facility] [place]Note 2] [address] [place] [address] from Last 3 Months or Most Recently Relevant to Health Maintenance Insurance Care Teams Team MemberRelationshipSpecialtyStart DateEnd Date Elsewhere, Pcp PCP - GeneralInternal Vcuentry00/22/21
--- OUTSIDE RECORDS SUMMARY | 2025-09-05 10:08 | XMS_ITS | Clinical Summary ---
Author Organization [facility] Address [address] [place] [address] Care Team Providers Care Hygiene Teacher Name Role Phone Bart Castelan MD Primary Care Provider Allergies Active AllergyReactionsCriticalityNoted JtmlZzjallagQyjalsuvIipq38/01/2016 YfvsbzlhYtvarujv34/05/2014 palpitations HsdrgrmpynXapgpntzbcec32/05/2014 flushed IbuprofenGI Uoitjupg26/27/5235DyicltgehoKybkc94/07/4714EclqtrwpcahSnvm70/01/2016 Medications MedicationSigDispense QuantityRefillsLast FilledStart DateEnd DateStatus metoprolol (TOPROL XL) 100 mg Sustained-Release tablet Take 1 tablet by mouth once daily.0Active clindamycin 1% (CLEOCIN-T) 1 % lotion Apply topically to affected area(s). Place daily under armpitsActive acetaminophen (TYLENOL EXTRA STRGTH) 500 mg tablet Take 500 mg by mouth every 6 hours if needed. Max acetaminophen dose: 4000mg in 24 hrs.Active amLODIPine (NORVASC) 5 mg tablet Indications:Take 1 1/2 tab dailyTake 5 mg by mouth once daily. Indications: Take 1 1/2 tab dailyActive nitroglycerin (NITROSTAT) 0.[address] 0.4 mg under the tongue every 5 minutes if needed for Chest Pain.Active metFORMIN (GLUCOPHAGE) 500 mg tablet Take 1 tablet by mouth 2 times daily with meals.Active atorvastatin (LIPITOR) 40 mg tablet Take 1 tablet by mouth at bedtime.Active aspirin (ECOTRIN) 81 mg enteric coated tablet Take 1 Tablet (81 mg) by mouth once daily with a meal.ctive losartan (COZAAR) 25 mg tablet Take 1 Tablet by mouth once daily.12/05/2020ctive clotrimazole-betamethasone cream (LOTRISONE) 1-0.05 % cream 09/07/2020Active fexofenadine (CRISTINA) 180 mg tablet Take 180 mg by mouth once daily.Active abiraterone (ZYTIGA) 250 mg tablet Take 4 Tablets by mouth once daily.07/12/2022ctive Klor-Con M20 20 mEq Extended-Release tablet Take 20 mEq by mouth.10/15/2022ctive tamsulosin (FLOMAX) 0.4 mg capsule Take 0.4 mg by mouth.01/12/2022ctive ascorbic acid, vitamin C, (Vitamin C) 1,000 mg tablet Take 1 Tablet (1,000 mg) by mouth once daily.ctive ferrous sulfate, 65 mg elemental, (Iron) tablet Take 1 Tablet (325 mg) by mouth once daily with a meal.ctive vitamin B complex (B-COMPLEX VITAMIN) tablet Take 1 Tablet by mouth once daily.ctive CPAP Indications:JOE (obstructive sleep apnea)CPAP machine for home use at pressure 9 cm/H2O, full face mask x1/3month with a full face cushion x1/mo 1 Each ctive Active Problems ProblemNoted DateDiagnosed DateOSA 10/11/2013 AHI-11011/02/2013Possible PAF (paroxysmal atrial fibrillation)11/04/2012 Overview (11/04/2012): -in ambulance Jvqsdmv9711/04/2012 Overview (11/04/2012): -due to 6 second pause -likely vasovagal GI bleed11/03/2012Gastric ulcer, acute12/21/2010 Overview (12/21/2010): EGD 12/2010 ulcer Benign neoplasm of colon02/17/2009 Overview (04/04/2018): Colonoscopy 02/2009 polyps repeat in 3 years Colonoscopy 04/2012 diverticulosis repeat in 5 years Colonoscopy 03/2018 polyp, repeat in 5 years Immunizations ImmunizationAdministration DatesNext DuePneumococcal Poly,23-Valent (Pneumovax) 11/05/2012 Family History Medical HistoryRelationNameCommentsHeart DiseaseMotherCABG at age 65RelationName StatusCommentsMother Social History Tobacco UseTypesPacks/DayYears UsedDateSmoking Tobacco: EszitxWnofcldszs341 09/16/1972 - 09/16/1982Smokeless Tobacco: Never Tobacco Cessation:Counseling Given: Yes Alcohol UseStandard Drinks/WeekCommentsNo0 (1 standard drink = 0.6 oz pure alcohol)PHQ-2AnswerDate RecordedPHQ-2 Vgjlh604Social ConnectionsAnswer Date RecordedFrequency of Communication with Friends and FamilyNot on file 10/24/2022Financial Resource StrainAnswerDate RecordedDifficulty of Paying Living ExpensesNot on file09/11/2021ifficulty of Paying Living ExpensesNot on file09/11/2021ex and Gender InformationValueDate RecordedSex Assigned at Not on fileLegal WiuLguk8209/29/2012 7:25 AM CSTGender IdentityNot on fileSexual OrientationNot on file Last Filed Vital Signs Vital SignReadingTime TakenCommentsBlood Tgdeliay531/6302 1:25 PM SALES SUPPORT COORDINATOR Rjgzy165410/24/2022 1:25 PM QRHRufkyfdyzsl19.7 ??C (98.1 ??F)09/10/2019 7:51 AM CSTRespiratory Tkhg268305/08/2014 4:00 PM CDTOxygen Essjkhqlmr62%10/24/2022 1:25 PM CSTInhaled Oxygen Concentration--Nppjkk18.2 kg (207 lb 9.6 oz)10/24/2022 1:25 PM QEIPcpqji213.3 cm (5' 11)05/08/2014 12:20 PM CDTBody Mass Index28.95 05/08/2014 12:20 PM CDT Plan of Treatment DateTypeDepartmentCare Team (Latest Contact Info)Xkmsndzkqtw84/31/2026 9:00 AM CDTOffice Visit [facility] [place] [address] Sher Desouza MD [address] [place] [address] Health MaintenanceDue DateLast DoneCommentsTetanus svvvgwm6409/25/1962Depression screening for age 12+1963BMI (ht and wt on same day) for age 18+1969 Hepatitis C screening for age 18-7909/25/1969Zoster (shingles) series for age 50+ (1 of 2)1970Lipids for age 45-RSV vaccine for adults or (1 - Risk 50-74 years 1-dose series)2001Pneumococcal series for age 50+ (2 of 2 - PCV)Medicare Wellness for age 65+ 2016Colonoscopy through age 750, 04/02/2018, 11/04/2012, Additional history existsCOVID-19 vaccine series (2024- season)/, 01/03/2022, 07/24/2021, Additional history exists Influenza Vaccine (#1)2025Hepatitis B series for 19+Aged OutNo longer eligible based on patient's age to complete this topic Procedures Procedure NamePriorityDate/TimeAssociated TmkrmdbdqLhseohnaMXCIKKRNFZH76/18/2018 10:08 AM CDT from Last 3 Months or Most Recently Relevant to Health Maintenance Results * COLONOSCOPY (04/02/2018 10:08 AM CDT)Specimen (Source)Anatomical Location / LateralityCollection Method / VolumeCollection TimeReceived Time04/02/2018 10:08 AM CDT Narrative Transcriptions Drake Gomez MD - 04/02/2018 11:27 AM CDT Patient Name: Bora Merino Procedure Date: 04/02/2018 Gender: Male Date of [...] adequate candidate for conscious sedation. The PCF-Q290AL [id number] was passed through the anus and advanced [...] there are any questions, please contact the buggy runner. Moderate Sedation: Moderate (conscious) sedation was administered by the endoscopy nurse and supervised by the endoscopist. The following parameters were monitored: oxygen saturation, heart rate, respiratory rate, blood pressure, adequacy of pulmonary ventilation and reponse to care. [facility] flow[facility] and nursing notes for moderate sedation details. Total physician intraservice time was 21 minutes. Drake Gomez MD 04/02/2018 11:27:26 AM This report has been signed electronically. Note Initiated On: 04/02/2018 10:08 AM Procedure Code(s): --- Professional --- 39711, Colonoscopy, flexible; with removalof tumor(s), polyp(s), or other lesion(s) bysnare technique Diagnosis Code(s): --- Professional --- Z86.010, Personal history of colonicpolyps D12.5, Benign neoplasm of sigmoid colon K57.30, Diverticulosis of large intestine without perforation or abscess withoutbleeding CPT copyright 2017 [employer]. All rights reserved. The codes documented in this report are preliminary and upon marketing and promotions manager reviewmay be revised to meet current compliance requirements. Scope In: 10:50:33 AM Scope Withdrawal Time 0 hours 10 minutes 29 seconds Scope Out: 11:10:12 AM Authorizing ProviderResult TypeResult StatusMarja Gomez MDPROCEDURE ORD Final Result from Last 3 Months or Most Recently Relevant to Health Maintenance Insurance * Guarantor: Bora Merino TypeRelation to PatientDate of PhoneBilling AddressPersonal/GkrkigVlaf[address] [place] [address] * Guarantor: BORA MERINO TypeRelation to PatientDate of PhoneBilling DyqbefySodcaklz48[birth year][address] [place] [address] Advance Directives * Full Code (Latest Code Status on File) Date ActivatedDate InactivatedComments11/03/2012 11:56 PM2 5:10 PM * Full Code Date ActivatedDate InactivatedComments11/03/2012 11:37 PM2 11:56 PM Care Teams Team MemberRelationshipSpecialtyStart DateEnd Date Bart Castelan MD [address] [place] [address] [facility] General10/27/15
--- OUTSIDE RECORDS SUMMARY | 2025-09-05 10:08 | XMS_ITS | Encounter Summary ---
Author Organization [facility] Address [address] [place] [address] Care Team Providers Care Digital Associate Name Role Phone Elsewhere, Pcp Primary Care Provider Unavailabl e Reason for Visit * ReasonCommentsMed Refillomeprazole Encounter Details DateTypeDepartmentCare Team (Latest Contact Info)Wbamtwbucjc13/12/2025Refill Division of Hematology in [place], [place] [address] [place] [address] Jannie Jaquez M.D. [address] [place] [phone] Med Refill (omeprazole ) Social History Tobacco UseTypesPacks/DayYears UsedDateSmoking Tobacco: TjrwoxPznhemotuj264.8 09/16/1979 - 07/17/1991Passive Smoke Exposure: PastSmokeless Tobacco: Former SnuffQuit: 07/17/1991 Comments:was a heavy smoker. quit cold turkey from all tobacco 1990 Passive Exposure Comments:ChildhoodAlcohol UseStandard Drinks/WeekCommentsNot Currently0 (1 standard drink = 0.6 oz pure alcohol)quit drinking [address] [place] [address] UtilitiesAnswerDate RecordedIn the past 12 months has the electric, gas, oil, or water [employer] threatened to shut off services in your [...] highest degree you have received?Some college, no adcgeo4912/21/2022Sex and Gender InformationValueDate RecordedSex Assigned at EksizOcmb37/21/2021 9:48 AM HYDROLOGIC ENGINEER Legal ZfwVtyd8610/18/2016 1:16 AM CSTGender SmovpbrnLvia11/16/2021 8:54 AM HYDROLOGIC ENGINEER Sexual FiuiwxdvdcoSggynrtn06/16/2021 8:54 AM CSTdocumented as of this encounter Plan of Treatment DateTypeDepartmentCare Team (Latest Contact Info)Sjdzpvqsvkb25/17/2026 9:15 AM CSTClinical Communication Virtual Review in [place], [place] [address] [place] [address] 11/04/2025 6:10 AM [facility] Department of Laboratory Medicine and Pathology, [facility], in [place], [place] [address] [place] [address] Jannie Jaquez M.D. [address] [place] [address] 11/04/2025 6:40 AM CSTAppointment Department of Radiology, [facility], in [place], [place] [address] [place] [address] Jannie Jaquez M.D. [address] [place] [phone] 11/04/2025 10:00 AM CSTOffice Visit Division of Hematology in [place], [place] [address] [place] [address] Jannie Jaquez M.D. [address] [place] [phone] 11/04/2025 11:00 AM CSTInfusion Department of Infusion Therapy in [place], [place] [address] [place] [address] Jannie Jaquez M.D. [address] [place] [phone] documented as of this encounter Visit Diagnoses Not on filedocumented in this encounter Care Teams Team MemberRelationshipSpecialtyStart DateEnd Date Elsewhere, Pcp PCP - GeneralInternal Gqzhajxa17/22/21documented as of this encounter
--- OUTSIDE RECORDS SUMMARY | 2025-09-05 10:08 | XMS_ITS | Encounter Summary ---
Author Organization [facility] Address [address] [place] [address] Care Team Providers Care Rope Tier Name Role Phone Elsewhere, Pcp Primary Care Provider Unavailabl e Encounter Details DateTypeDepartmentCare Team (Latest Contact Info)Iarzwsdycdu17/27/2025Results Follow-Up Division of Hematology in [place], [place] [address] [place] [phone] Jannie Jaquez M.D. [address] [place] [phone] PSA (Prostate-Specific Antigen), Diagnostic, CBC with Differential, Blood, Comprehensive Metabolic Panel, Testosterone, Total by Mass Spectrometry, Serum Social History Tobacco UseTypesPacks/DayYears UsedDateSmoking Tobacco: ZqrbuqIvloavjubh675.8 09/16/1979 - 07/17/1991Passive Smoke Exposure: PastSmokeless Tobacco: Former SnuffQuit: 07/17/1991 Comments:was a heavy smoker. 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 [address] [place] [phone] 11/04/2025 6:40 AM CSTAppointment Department of Radiology, [facility], in [place], [place] [address] [place] [address] Jannie Jaquez M.D. [address] [place] [phone] 11/04/2025 10:00 AM CSTOffice Visit Division of Hematology in [place], [place] [address] [place] [address] Jannie Jaquez M.D. [address] [place] [phone] 11/04/2025 11:00 AM CSTInfusion Department of Infusion Therapy in [place], [place] [address] [place] [address] Jannie Jaquez M.D. [address] [place] [phone] documented as of this encounter Visit Diagnoses Not on filedocumented in this encounter Care Teams Team MemberRelationshipSpecialtyStart DateEnd Date Elsewhere, Pcp PCP - GeneralInternal Lzepvmxl02/22/21documented as of this encounter
--- NOTE | 2025-09-05 10:54 | CRLHL7_ITS ---
For Patients: As a result of the Century Cures Act, medical imaging exams and procedure reports are released immediately into your electronic medical record. You may view this report before your referring provider. If you have questions, please contact your health care provider. INDICATION: Chest pain. TECHNIQUE: Chest portable AP. COMPARISON: 08/14/2024. FINDINGS: Heart size is magnified by the AP technique. The lungs are clear. The pulmonary vasculature and pleural surfaces appear normal. The bony thorax appears intact. IMPRESSION: No acute process identified. Dictated by Dejuan Pascal MD @ 09/05/2025 11:32:19 AM (Electronically Signed)
--- NOTE | 2025-09-05 10:56 | ED.CHESTPAIN ---
HPI - Chest Pain General Chief Complaint: Chest Pain Stated Complaint: Chest pain Time Seen by Provider: 09/05/25 10:22 History of Present Illness HPI narrative: Patient is a 74-year-old gentleman with a known history of coronary artery disease who presents with intermittent chest pain for the last week. Three days ago patient was in [employer] and had evaluation for his chest pain which was negative in the emergency room. He is my primary care patient. EKG done at the time of arrival is nonacute. Related Data Home Medications ?Medication ?Instructions ?Recorded ?Confirmed oxygen-air delivery systems 01/15/23 03/04/25 bisacodyl 5 mg tablet,delayed 5 mg PO QDAY 03/04/25 09/05/25 release (Dulcolax (bisacodyl)) calcium 315 mg (as 1 tab PO QDAY 03/04/25 09/05/25 citrate)-vitamin D3 6.25 mcg (250 unit) tablet (Citracal + Vitamin D Maximum) cyanocobalamin (vitamin B-12) 1,000 mcg PO .TIW 03/04/25 09/05/25 1,000 mcg capsule fexofenadine 180 mg tablet 180 mg PO QDAY 03/04/25 09/05/25 (Rajwinder Allergy) omeprazole 20 mg capsule,delayed 20 mg PO QDAY 03/04/25 09/05/25 release psyllium husk 0.4 gram capsule 0.4 g PO ONCE 03/04/25 03/04/25 glipizide 5 mg tablet 2.5 mg PO DAILY 09/05/25 09/05/25 Previous Rx's ?Medication ?Instructions ?Recorded clindamycin phosphate 1 % lotion 1 applic topical BID Rash #60 mL 03/04/25 amlodipine 2.5 mg tablet 2.5 mg PO DAILY Hypertension #90 08/10/25 tabs atorvastatin 40 mg tablet (Lipitor) 40 mg PO HS Hyperlipidemia #90 tabs 08/10/25 glipizide 2.5 mg tablet 2.5 mg PO QDAY #90 tabs 08/10/25 iron,carbonyl 65 mg-vitamin C 125 1 tab PO .every other day Anemia 08/10/25 mg tablet,delayed release #30 tabs (Vitron-C) losartan 25 mg tablet 25 mg PO DAILY for blood pressure 11/25/25 #90 tabs metoprolol succinate 100 mg 100 mg PO DAILY Hypertension #90 08/10/25 tablet,extended release 24 hr tabs (Toprol XL) tamsulosin 0.4 mg capsule 0.4 mg PO QHS BPH #90 caps 08/10/25 clotrimazole-betamethasone 1 1 applic topical BID Rash #45 grams 08/11/25 %-0.05 % topical cream nitroglycerin 0.4 mg sublingual 0.4 mg sublingual Q5M PRN chest 09/03/25 tablet (Nitrostat) pain #30 tabs Allergies Allergy/AdvReac Type Severity Reaction Status Date / Time ibuprofen Allergy Mild Verified 09/05/25 10:29 NSAIDS (Non-Steroidal Allergy Mild Unknown Verified 09/05/25 10:29 Anti-Inflamma adhesive Allergy Unknown Verified 09/05/25 10:29 Review of Systems Status of ROS Reports: 10 or more systems reviewed and unremarkable except as noted in History and below [facility] Medical History Proctitis ?K62.89 - Other specified diseases of anus and rectum (ICD-10) Radiation cystitis ?N30.40 - Irradiation cystitis without hematuria (ICD-10) Diabetes ?E11.9 - Type 2 diabetes mellitus without complications (ICD-10) Prostate cancer ?C61 - Malignant neoplasm of prostate (ICD-10) Hypertension ?I10 - Essential (primary) hypertension (ICD-10) Anemia ?D64.9 - Anemia, unspecified (ICD-10) Fatigue ?R53.83 - Other fatigue (ICD-10) Urinary frequency ?R35.0 - Frequency of micturition (ICD-10) Unintentional weight loss ?R63.4 - Abnormal weight loss (ICD-10) GI bleed ?K92.2 - Gastrointestinal hemorrhage, unspecified (ICD-10) History of renal calculi ?Z87.442 - Personal history of urinary calculi (ICD-10) History of atrial fibrillation ?Z86.79 - Personal history of other diseases of the circulatory system (ICD-10) Prostate cancer ?C61 - Malignant neoplasm of prostate (ICD-10) Adenomatous polyp of colon ?D12.6 - Benign neoplasm of colon, unspecified (ICD-10) Type 2 diabetes mellitus ?E11.9 - Type 2 diabetes mellitus without complications (ICD-10) Essential hypertension ?I10 - Essential (primary) hypertension (ICD-10) Hyperlipemia ?E78.5 - Hyperlipidemia, unspecified (ICD-10) JOE (obstructive sleep apnea) ?G47.33 - Obstructive sleep apnea (adult) (pediatric) (ICD-10) Aortic regurgitation ?I35.1 - Nonrheumatic aortic (valve) insufficiency (ICD-10) CAD (coronary artery disease) ?I25.10 - Atherosclerotic heart disease of [place] coronary artery without angina pectoris (ICD-10) Obesity ?E66.9 - Obesity, unspecified (ICD-10) IBS (irritable bowel syndrome) ?K58.9 - Irritable bowel syndrome without diarrhea (ICD-10) Hearing loss d/t noise ?H83.3X9 - Noise effects on inner ear, unspecified ear (ICD-10) Surgical History History of cholecystectomy (04/25/07) ?Z90.49 - Acquired absence of other specified parts of digestive tract (ICD-10) History of appendectomy (04/25/07) ?Z90.49 - Acquired absence of other specified parts of digestive tract (ICD-10) Family History Brother Prostate cancer Alcohol dependence Father Prostate cancer Social History Narrative: He is here with his . is healthcare power of claims attorney. Code status is full. 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 He does not smoke. Does not drink alcohol. What is your current living situation?: I presently have a place to live Problems where you live: no known problems In the past 12 months, utilities in danger of being shut off: no In past 12 months, lack of transportation kept you from medical appts, meetings, work, or getting things needed for daily living: no In the past 12 mos, have been you worried that your food would run out before you had money to buy more?: never true In the past 12 mos, the food you bought just didn't last and you didn't have money to buy more?: never true Highest level of school completed/degree received: some college, no degree Smoking Status: Former smoker How often do you have a drink containing alcohol: never AUDIT-C Alcohol total score: 0 Non-prescribed substance use: denies use Caffeine: Yes (1 can [employer] daily) How often does anyone, including family, friends and others, physically hurt you: never How often does anyone, including family, friends and others, insult or talk down to you: never How often does anyone, including family, friends and others, threaten you with harm: never How often does anyone, including family, friends and others, scream or curse at you: never service: No Exam Narrative Exam Narrative: EXAM GENERAL: Patient appears comfortable and well. EYES: No scleral icterus. LYMPH: No supraclavicular or cervical lymphadenopathy. SKIN: Visible skin seen during exam normal or with benign process only. EXT: No dependent lower extremity pedal edema. HEART: Regular rate and rhythm with no murmurs, rubs, or gallops. LUNGS: Clear to auscultation bilaterally with no crackles or wheezes. ABD: Soft, non tender, non distended. PSYCH: Good eye contact, speech is not pressured. Const Vital Signs, click to edit/add: Vital Signs - 24 hr 09/05/25 10:22 09/05/25 10:22 09/05/25 10:23 Temperature 97.1 F L Pulse Rate 80 75 Pulse Rate [Pulse Oximeter] 81 Respiratory Rate 20 11 L Blood Pressure 133/85 Blood Pressure [Left Upper Arm] 133/85 Pulse Oximetry 97 97 97 Oxygen Delivery Method Room Air 09/05/25 10:30 09/05/25 10:32 09/05/25 10:45 Temperature Pulse Rate 83 82 80 Pulse Rate [Pulse Oximeter] Respiratory Rate 23 14 12 Blood Pressure 129/69 Blood Pressure [Left Upper Arm] Pulse Oximetry 96 97 95 Oxygen Delivery Method 09/05/25 11:00 09/05/25 11:01 09/05/25 11:18 Temperature Pulse Rate 80 72 Pulse Rate [Pulse Oximeter] Respiratory Rate 14 14 25 H Blood Pressure 152/71 H Blood Pressure [Left Upper Arm] Pulse Oximetry 98 98 96 Oxygen Delivery Method 09/05/25 11:30 09/05/25 11:32 09/05/25 11:45 Temperature Pulse Rate 68 70 65 Pulse Rate [Pulse Oximeter] Respiratory Rate 12 16 Blood Pressure 140/61 H Blood Pressure [Left Upper Arm] Pulse Oximetry 100 98 99 Oxygen Delivery Method 09/05/25 12:00 09/05/25 12:02 09/05/25 12:15 Temperature Pulse Rate 67 76 64 Pulse Rate [Pulse Oximeter] Respiratory Rate 14 13 Blood Pressure 143/65 H Blood Pressure [Left Upper Arm] Pulse Oximetry 99 100 99 Oxygen Delivery Method 09/05/25 12:30 09/05/25 12:32 09/05/25 12:33 Temperature Pulse Rate 64 73 67 Pulse Rate [Pulse Oximeter] Respiratory Rate 19 10 L 12 Blood Pressure 128/89 Blood Pressure [Left Upper Arm] Pulse Oximetry 100 97 99 Oxygen Delivery Method 09/05/25 12:45 09/05/25 13:00 09/05/25 13:02 Temperature Pulse Rate 64 63 65 Pulse Rate [Pulse Oximeter] Respiratory Rate 15 12 Blood Pressure 171/77 H Blood Pressure [Left Upper Arm] Pulse Oximetry 98 99 98 Oxygen Delivery Method Course Course ED Course: Patient has a CBC comprehensive metabolic panel troponin D-dimer chest x-ray pending. Follow up based on those results. Reevaluation(s) Reevaluation #1: Patient is asymptomatic but troponin has come back elevated. We did give aspirin 325 and transfer is being arranged to [facility]. Reevaluation #2: Did speak to [facility]. They would like a 2nd troponin in 2 hours and would like everything faxed to them. They would also like us to start heparin which we did in addition to aspirin 325. Vital Signs Vital signs: Initial Vital Signs Temperature 97.1 F L 09/05/25 10:22 Temperature Source Temporal Artery Scan 09/05/25 10:22 Pulse Rate 80 09/05/25 10:22 Pulse Rhythm Regular 09/05/25 10:22 Respiratory Rate 20 09/05/25 10:22 Blood Pressure 133/85 09/05/25 10:22 Blood Pressure Mean 101 09/05/25 10:22 Blood Pressure Position Semi-Fowlers 09/05/25 10:22 Pulse Oximetry 97 09/05/25 10:22 Oxygen Delivery Method Room Air 09/05/25 10:22 Vital Signs Temperature 97.1 F L 09/05/25 10:22 Pulse Rate 80 09/05/25 10:22 Respiratory Rate 20 09/05/25 10:22 Blood Pressure 133/85 09/05/25 10:22 Pulse Oximetry 97 09/05/25 10:22 Oxygen Delivery Method Room Air 09/05/25 10:22 Temperature 97.1 F L 09/05/25 10:22 Pulse Rate 65 09/05/25 13:02 Respiratory Rate 12 09/05/25 13:00 Blood Pressure 171/77 H 09/05/25 13:02 Pulse Oximetry 98 09/05/25 13:02 Oxygen Delivery Method Room Air 09/05/25 10:22 Medications Administered Medications: Generic Name Dose Route Start Last Admin Trade Name Freq PRN Reason Stop Dose Admin Heparin Sodium/Dextrose 25,000 unit in 500 mls @ 0 mls/hr 09/05/25 12:00 09/05/25 12:16 Heparin IV 1,000 unit/hr .Q0M LUCIAN 20 mls/hr Protocol Administration Per Protocol Discontinued Medications Generic Name Dose Route Start Last Admin Trade Name Freq PRN Reason Stop Dose Admin Aspirin 324 mg 09/05/25 11:45 09/05/25 11:47 Aspirin 81 Mg Tab.Chew PO 09/05/25 11:46 324 mg ONCE ONE Administration Heparin Sodium (Porcine) 4,000 unit 09/05/25 12:00 09/05/25 12:15 Heparin 5,000 Unit/0.5 Ml Inj IVP 09/05/25 12:01 4,000 unit ONCE ONE Administration MDM - Chest Pain MDM Narrative Medical decision making narrative: Patient is a 74-year-old gentleman comes in today with intermittent chest pain for last week. EKG is nonacute but does show a sinus rhythm with first-degree AV block left axis deviation right bundle-branch block noted. He does have elevated high sensitivity troponin of 122 and I did call and speak with cardiology recommended aspirin 81 mg as well as heparin drip. Patient transported via EMS to [facility] under the care of Cardiology. Lab Data Labs: Lab Results 09/05/25 09/05/25 Range/Units 10:54 11:04 WBC 5.32 (4.50-11.00) K/uL RBC 3.82 L (4.30-5.90) m/uL Hgb 11.3 L (13.5-17.5) gm/dL Hct 34.5 L (37.0-53.0) % MCV 90 (80-100) fL MCH 30 (26-34) pg MCHC 33 (32-36) gm/dL RDW Coeff of Arnold 13.9 (11.5-15.5) % Plt Count 170 (140-440) K/uL Neut % (Auto) 83.2 H (42.0-72.0) % Lymph % (Auto) 8.3 L (20-44) % [place] % (Auto) 5.3 (0.0-11.0) % Eos % (Auto) 2.6 (0.0-7.0) % Baso % (Auto) 0.4 (0.0-3.0) % Neut # (Auto) 4.40 (1.7-7.0) K/uL Lymph # (Auto) 0.40 L (0.90-2.90) K/uL [place] # (Auto) 0.30 (0.00-0.90) K/UL Eos # (Auto) 0.14 (0.00-0.50) K/uL Baso # (Auto) 0.02 (0.00-0.30) K/uL Abs Immat Gran (auto) 0.01 (0.00-0.30) K/uL Imm/Tot Granulo (auto) 0.2 % INR 1.06 (0.91-1.10) APTT 29 (23-33) Seconds D-Dimer Quant (PE/DVT) < 0.27 (0.00-0.50) ug/ml Sodium 138 (135-149) mmol/L Potassium 3.9 (3.6-5.1) mmol/L Chloride 105 (96-114) mmol/L Carbon Dioxide 26 (20-32) mmol/L Anion Gap 7 (7-15) mEq/L BUN 22 (7-30) mg/dL Creatinine 1.4 (0.5-1.5) mg/dL Estimated Creat Clear 50.05 Estimated GFR 53 ml/min Glucose 195 H (60-115) mg/dL Calcium 8.9 (8.4-10.6) mg/dL Total Bilirubin 0.4 (0.1-1.5) mg/dL AST 22 (12-35) U/L ALT 19 (4-50) U/L Alkaline Phosphatase 100 (40-150) U/L POC Troponin I High Sensi 122.0 H* (2.9-28.0) pg/mL Total Protein 6.9 (6.0-8.3) g/dL Albumin 4.2 (3.3-5.0) g/dL Discharge Plan Discharge Clinical Impression: Non-ST elevated myocardial infarction (non-STEMI) Patient Disposition: [facility] Condition: Stable Activity Level: Other Discharge Diet: Other Prescriptions: No Action fexofenadine [Rajwinder Allergy] 180 mg tablet 180 mg PO QDAY omeprazole 20 mg capsule,delayed release(DR/EC) 20 mg PO QDAY bisacodyl [Dulcolax (bisacodyl)] 5 mg tablet,delayed release (DR/EC) 5 mg PO QDAY calcium citrate-vitamin D3 [Citracal + D Maximum] 315 mg-6.25 mcg (250 unit) tablet 1 tab PO QDAY cyanocobalamin (vitamin B-12) 1,000 mcg capsule 1,000 mcg PO .TIW psyllium husk 0.4 gram capsule 0.4 g PO ONCE clindamycin phosphate 1 % lotion 1 applic topical BID Qty: 60 3RF (DME) oxygen-air delivery systems Device See Rx Instructions .Route Rx Instructions: As directed glipizide 5 mg tablet 2.5 mg PO DAILY amlodipine 2.5 mg tablet 2.5 mg PO DAILY Qty: 90 0RF losartan 25 mg tablet 25 mg PO DAILY Qty: 90 0RF atorvastatin [Lipitor] 40 mg tablet 40 mg PO HS Qty: 90 0RF tamsulosin 0.4 mg capsule 0.4 mg PO QHS Qty: 90 0RF glipizide 2.5 mg tablet 2.5 mg PO QDAY Qty: 90 0RF metoprolol succinate [Toprol XL] 100 mg tablet extended release 24 hr 100 mg PO DAILY Qty: 90 0RF Vitron-C 65 mg iron- 125 mg tablet,delayed release (DR/EC) 1 tab PO .every other day Qty: 30 2RF clotrimazole-betamethasone 1-0.05 % cream 1 applic topical BID Qty: 45 0RF nitroglycerin [Nitrostat] 0.4 mg tablet, sublingual 0.4 mg sublingual Q5M PRN (Reason: chest pain) Qty: 30 0RF Rx Instructions: do not exceed 3 doses per episode Stand Alone Forms: MyHealth Info Instructions
[2025-09-05 11:13] LABS: Hematocrit* 34.5 % (37.0-53.0); Hemoglobin* 11.3 gm/dL (13.5-17.5); Immature Granulocytes Abs Auto 0.01 K/uL (0.00-0.30); Immature Granulocytes Pct Auto 0.2 %; Lymphocytes Absolute Auto 0.40 K/uL (0.90-2.90); Mean Corpuscular HGB Conc 33 gm/dL (32-36); Mean Corpuscular Hemoglobin 30 pg (26-34); Mean Corpuscular Volume 90 fL (80-100); RDW Coefficient of Variation % 13.9 % (11.5-15.5); Red Blood Count* 3.82 m/uL (4.30-5.90); White Blood Count* 5.32 K/uL (4.50-11.00)
[2025-09-05 11:14] LABS: Slide Review Reflex No
[2025-09-05 11:30] LABS: Chloride* 105 mmol/L (96-114)
[2025-09-05 11:31] LABS: Albumin* 4.2 g/dL (3.3-5.0); Potassium* 3.9 mmol/L (3.6-5.1); Sodium* 138 mmol/L (135-149)
[2025-09-05 11:33] LABS: Alanine Aminotransferase* 19 U/L (4-50); Aspartate Amino Transferase* 22 U/L (12-35); Blood Urea Nitrogen* 22 mg/dL (7-30); Creatinine* 1.4 mg/dL (0.5-1.5); Est. Creatinine Clearance* 50.05; Estimated Glomerular Filt Rate 53 ml/min
[2025-09-05 11:34] LABS: Alkaline Phosphatase* 100 U/L (40-150); Anion Gap 7 mEq/L (7-15); Bilirubin Total* 0.4 mg/dL (0.1-1.5); Calcium* 8.9 mg/dL (8.4-10.6); Carbon Dioxide* 26 mmol/L (20-32); Glucose* 195 mg/dL (60-115); Total Protein* 6.9 g/dL (6.0-8.3)
[2025-09-05 11:45] LABS: D Dimer Quantitative* < 0.27 ug/ml (0.00-0.50)
[2025-09-05] MEDS: ASPIRIN 81 MG TAB.CHEW 324 MG PO (11:47)
[2025-09-05 12:13] LABS: INR 1.06 (0.91-1.10); Prothrombin Time 14.6 Seconds
[2025-09-05] MEDS: HEPARIN 5,000 UNIT/0.5 ML INJ 4000 UNIT IVP (12:15)
[2025-09-05] MEDS: HEPARIN 25,000 UNIT/500 ML BAG 20 UNIT IV (12:16)
== END 2025-09-05 13:50 | disposition short-term general hospital (02) ==
PROVIDERS: Emergency Provider Internal Medicine; PCP Internal Medicine
DX: I21.4 Non-ST elevation (NSTEMI) myocardial infarction (principal)
CPT/HCPCS: 36415; 71045; 80053; 84484; 85025; 85379; 85610; 85730; 94761; 99284; 99285; A9270; J1644

== ENCOUNTER 2025-09-05 13:55 | Outpatient (CLI) | payer MEDICARE, BC, SELFPAY | END 2025-09-05 13:56 | disposition home or self-care (01) | LOC: AMB 09-08 14:54 | PROVIDERS: PCP Internal Medicine; Visit Provider Internal Medicine | DX: R07.89 Other chest pain (principal) | CPT/HCPCS: A0425; A0427 ==